=== PATIENT | male | born 1960 | race Two or more races ===

== ENCOUNTER 2017-09-08 10:51 | Inpatient (IN) | payer OTHER ==
[2017-09-08 11:56] VITALS: BMI 29.7
--- NOTE | 2017-09-08 13:00 | HP ---
Admission ROS [facility] Chief Complaint: "I'm here to improve the quality of my life." Patient is here for Rehab for Cocaine. Allergies/Adverse Reactions: Allergies Allergy/AdvReac Type Severity Reaction Status Date / Time Penicillins Allergy Unknown UNKNOWN Verified 09/08/17 12:20 History of Present Illness: Patient is a 56 YO male here for rehab for Cocaine. Patient has had 2 previous rehab admissions at [facility] (2013, 2014). Patient denies any other previous Detox / Rehab admissions. Longest period of non-drug use in recent years: approx. 1 year (@ 2009). Exam Limitations: No Limitations - Ebola screening Have you traveled outside of the country in the last 21 days: No Have you had contact with anyone from an Ebola affected area: No Have you been sick,other than usual withdrawal symptoms: No Do you have a fever: No - Review of Systems Constitutional: Malaise EENT: reports: No Symptoms Reported Respiratory: reports: No Symptoms reported Cardiac: reports: No Symptoms Reported Musculoskeletal: reports: No Symptoms Reported Integumentary: reports: Pruritus (Eczema on face, upper back, arms.) Neuro: reports: No Symptoms reported Endocrine: reports: No Symptoms Reported Hematology: reports: No Symptoms Reported Psychiatric: reports: No Sypmtoms Reported, Judgement Intact, Mood/Affect Appropiate, Orientated x3, Depressed (On meds.) Other Systems: Reviewed and Negative Patient History - Patient Medical History Hx Anemia: No Hx Asthma: Yes (Uses Albuterol inhlaer PRN.) Hx Chronic Obstructive Pulmonary Disease (COPD): No Hx Cancer: No Hx Cardiac Disorders: No Hx Congestive Heart Failure: No Hx Hypertension: Yes (Takes Amlodipine.) Hx Hypercholesterolemia: No Hx Pacemaker: No HX Cerebrovascular Accident: No Hx Seizures: No Hx Dementia: No Hx Diabetes: No Hx Gastrointestinal Disorders: No Hx Liver Disease: No Hx Genitourinary Disorders: No Hx Sexually Transmitted Disorders: No Hx Renal Disease (ESRD): No Hx Thyroid Disease: No Hx Human Immunodeficiency Virus (HIV): No (NEGATIVE HX; Last Tested: 2016.) Hx Hepatitis C: No (NEGATIVE HX.) Hx Depression: Yes (On meds.) Hx Suicide Attempt: No (PATIENTDENIES CURRENT SI / HI.) Hx Bipolar Disorder: No Hx Schizophrenia: No Other Medical History: DENIES. - Patient Surgical History Past Surgical History: No Hx Neurologic Surgery: No Hx Cataract Extraction: No Hx Cardiac Surgery: No Hx Lung Surgery: No Hx Breast Surgery: No Hx Breast Biopsy: No Hx Abdominal Surgery: No Hx Appendectomy: No Hx Cholecystectomy: No Hx Genitourinary Surgery: No Hx Section: No Hx Orthopedic Surgery: No Anesthesia Reaction: No - PPD History Previous Implant?: Yes Documented Results: Negative w/proof Implanted On Prior [facility] Admission?: Yes Date: 07/22/15 Results: 0 mm PPD to be Administered?: Yes - Reproductive History Patient is a Female of Child Bearing Age (11 -55 yrs old): No (PATIENT IS MALE.) Patient : No - Smoking Cessation Smoking history: Former smoker Have you smoked in the past 12 months: Yes Aproximately how many cigarettes per day: 4 If you are a former smoker, when did you quit?: Approx. 1 month ago. Cigars Per Day: 0 Hx Chewing Tobacco Use: No Initiated information on smoking cessation: Yes 'Breaking Loose' booklet given: 09/08/17 (GIVEN ON UNIT.) - Substance & Tx. History Hx Alcohol Use: No Hx Substance Use: Yes Substance Use Type: Cocaine Hx Substance Use Treatment: Yes (2 previous Rehab admissions at [facility] (2013 and 2014).) - Substances Abused Crack Route: Smoking Frequency: Daily Amount used: $80 Age of first use: 34 Date of Last Use: 08/04/17 Family Disease History - Family Disease History Family Disease History: Respiratory: Mother (Asthma ), Daughter (Asthma) Admission Physical Exam [facility] - Vital Signs Vital Signs: Vital Signs - 24 hr 09/08/17 11:55 Temperature 96.1 F L Pulse Rate 76 Respiratory 20 Rate Blood Pressure 131/84 - Physical General Appearance: Yes: No Apparent Distress, Nourished, Appropriately Dressed HEENTM: Yes: Hearing grossly Normal, Normocephalic, Normal Voice, BRENNAN, Pharynx Normal Respiratory: Yes: Chest Non-Tender, Lungs Clear, No Respiratory Distress, No Accessory Muscle Use Neck: Yes: No masses,lesions,Nodules, Supple, Trachea in good position Breast: Yes: Breast Exam Deferred Cardiology: Yes: Regular Rhythm, Regular Rate, S1, S2 Abdominal: Yes: Normal Bowel Sounds, Non Tender, Flat, Soft Genitourinary: Yes: Within Normal Limits Back: Yes: Normal Inspection Musculoskeletal: Yes: full range of Motion, Gait Steady Extremities: Yes: Normal Capillary Refill, Normal Range of Motion, Non-Tender Neurological: Yes: Fully Oriented, Alert, Normal Mood/Affect, Normal Response Integumentary: Yes: Normal Color, Dry, Warm Lymphatic: Yes: Within Normal Limits - Diagnostic (1) Cocaine dependence, uncomplicated Current Visit: Yes Status: Chronic (2) History of depression Current Visit: Yes Status: Chronic (3) Essential hypertension Current Visit: Yes Status: Chronic Cleared for Admission [facility] - Detox or Rehab Claeared for Rehab Admission: Yes [facility] Breath Alcohol Content Breath Alcohol Content: 0 Urine Drug Screen - Results Drug Screen Negative: Yes
[2017-09-08] MEDS ORDERED: MENTHOL/PHENOL 1 EACH UD MM PRN (13:17)
[2017-09-08] MEDS ORDERED: guaiFENesin/D-METHORPHAN HB 10 ML UNIT-DOSE CUPS PO PRN (13:17)
[2017-09-08] MEDS ORDERED: LOPERAMIDE HCL 2 MG CAPSULE PO PRN (13:17)
[2017-09-08] MEDS ORDERED: MAG HYDROX/AL HYDROX/SIMETH 30 ML UNIT-DOSE CUP PO PRN (13:17)
[2017-09-08] MEDS ORDERED: MAGNESIUM CITRATE 300 ML BOTTLE PO PRN (13:17)
[2017-09-08] MEDS ORDERED: P-EPHED 60MG/TRIPROLIDI 2.5MG TABLET PO PRN (13:17)
[2017-09-08] MEDS ORDERED: MAGNESIUM HYDROX 2400MG/30ML ORAL SUSPENSION 30 ML CUP PO PRN (13:17)
[2017-09-08] MEDS ORDERED: IBUPROFEN 400 MG TABLET (FP) PO PRN (13:17)
[2017-09-08] MEDS ORDERED: ACETAMINOPHEN 325 MG TABLET (FP) PO PRN (13:17)
[2017-09-08] MEDS ORDERED: TUBERCULIN PPD 5 TU/0.1ML VIAL ID ONE (14:06)
--- NOTE | 2017-09-08 14:37 | HP ---
Psychiatrist Admission - Data Date of interview: 09/08/17 Admission source: [facility] Identifying data: This is the third [facility] admission for this 56 year old single AA male, currently homeless. Medical History: HTN, Asthma and eczema . Smokes cigaretets 4 a day. Psychiatric History: Patient reports was diagnosed with MDD, first psychiatric treatment in 2005 to address depressed mood following his father's , was hospitalizaed at [facility], several subsequent psychiatric hospitalizations with most recent for 21 days at [facility] from where he was reffered to [facility]. he is on the following medications Trazodoen 100 mg po hs and Celexa 10 mg po daily. Physical/Sexual Abuse/Trauma History: Patient denies history of sexual, physical and verbal abuse. Vital Signs: Vital Signs - 24 hr 09/08/17 11:55 Temperature 96.1 F L Pulse Rate 76 Respiratory 20 Rate Blood Pressure 131/84 Allergies/Adverse Reactions: Allergies Allergy/AdvReac Type Severity Reaction Status Date / Time Penicillins Allergy Unknown UNKNOWN Verified 09/08/17 12:20 Date of last physical exam: 09/08/17 Concur with the findings of this exam: Yes - Substance Abuse/Tx History Hx Alcohol Use: Yes ("sometimes) Hx Substance Use: Yes Substance Use Type: Cocaine ($80 daily ) Hx Substance Use Treatment: Yes ([address] 2 2013 and 2014) Mental Status Exam - Mental Status Exam Alert and Oriented to: Time, Place, Person Cognitive Function: Grossly Intact Patient Appearance: Well Groomed Mood: Sad, Anxious Affect: Appropriate, Mood Congruent Patient Behavior: Appropriate, Cooperative Speech Pattern: Clear, Appropriate Voice Loudness: Normal Thought Process: Intact, Goal Oriented Thought Disorder: Not Present Hallucinations: Denies Suicidal Ideation: Denies Homicidal Ideation: Denies Insight/Judgement: Fair Sleep: Fair Appetite: Fair Muscle strength/Tone: Normal Gait/Station: Normal Psychiatric Findings - Problem List ([place] 1, 2,3) (1) Alcohol abuse Current Visit: Yes Status: Acute (2) Nicotine dependence Current Visit: Yes Status: Acute (3) Cocaine dependence Current Visit: No Status: Acute Qualifiers: Substance use status: uncomplicated Qualified Code(s): F14.20 - Cocaine dependence, uncomplicated (4) Major depressive disorder, recurrent episode, moderate Current Visit: No Status: Chronic - Initial Treatment Plan Initial Treatment Plan: will continue current medications, monitor progress as needed.
--- NOTE | 2017-09-08 14:53 | PN ---
[facility] Progress Note (SOAP) Subjective: c/o dry skin and pruritus would like aveeno and dry skin cream Objective: 09/08/17 14:52 Vital Signs - 8 hr 09/08/17 11:55 Temperature 96.1 F L Pulse Rate 76 Respiratory 20 Rate Blood Pressure 131/84 labs reviewed in chart, no rash nad a and ox3 Assessment: 09/08/17 14:53 dry skin dermatitis - ordered aveeno, lachydrin
[2017-09-08] MEDS: AMMONIUM LACTATE 12% LOTION 225 GM BOTTLE TP SCH ×2 (15:07→21:07)
[2017-09-08 15:22] LABS: ALBUMIN 4.2 g/dl (3.4-5.0); ALK PHOS 94 U/L (45-117); ANION GAP 7 (8-16); BILIRUBIN,TOTAL 0.6 mg/dL (0.2-1.0); CALCIUM 9.4 mg/dL (8.5-10.1); CO2 30 mmol/L (21-32); CREATININE 1.1 mg/dL (0.7-1.3); GLUCOSE,RANDOM 92 mg/dL (74-106); SGOT/AST 22 U/L (15-37); SGPT/ALT 18 U/L (12-78); TOT PROT 7.9 g/dl (6.4-8.2)
[2017-09-08] MEDS: COLLOIDAL OATMEAL 1 BAR EACH TP PRN (15:30)
[2017-09-08 15:39] LABS: MCH 30.9 pg (25.7-33.7); MCHC 34.2 g/dl (32.0-35.9); MEAN CELL VOLUME 90.4 fl (80-96); MEAN PLT VOLUME 8.3 fl (7.5-11.1); PLATELET COUNT 258 K/MM3 (134-434); RDW 13.4 % (11.9-15.9); WHITE BLOOD COUNT 8.1 K/mm3 (4.0-10.0)
[2017-09-08] MEDS: traZODone HCL 100 MG TABLET (FP) PO SCH (21:06)
[2017-09-08] MEDS: THIAMINE HCL 100 MG TABLET (FP) PO SCH (21:06)
[2017-09-08 21:15] LABS: URINE APPEARANCE CLEAR; URINE BILIRUBIN NEGATIVE (NEGATIVE); URINE BLOOD NEGATIVE (NEGATIVE); URINE COLOR LT. YELLOW; URINE GLUCOSE (UA) NEGATIVE (NEGATIVE); URINE KETONE NEGATIVE (NEGATIVE); URINE NITRITE NEGATIVE (NEGATIVE); URINE PROTEIN NEGATIVE (NEGATIVE); URINE UROBILINOGEN 0.2 mg/dL (0.2-1.0)
[2017-09-09 09:49] LABS: URINE LEUK ESTERASE Negative (NEGATIVE)
[2017-09-09] MEDS: amLODIPine BESYLATE 10 MG TABLET (FP) PO SCH (09:49)
[2017-09-09] MEDS: PRENATAL VITAMINS W/ FOLIC ACID TABLET (FP) PO SCH (09:49)
[2017-09-09] MEDS: CITALOPRAM HYDROBROMIDE 20 MG TABLET (FP) PO SCH (09:49)
[2017-09-09] MEDS: AMMONIUM LACTATE 12% LOTION 225 GM BOTTLE TP SCH ×2 (09:50→21:17)
--- NOTE | 2017-09-09 12:49 | EKG ---
Test Reason : Blood Pressure : / mmHG Vent. Rate : 071 BPM Atrial Rate : 071 BPM P-R Int : 170 ms QRS Dur : 084 ms QT Int : 420 ms P-R-T Axes : 067 077 015 degrees QTc Int : 456 ms NORMAL SINUS RHYTHM NORMAL ECG NO PREVIOUS ECGS AVAILABLE Confirmed by SHARMAINE LOPEZ, ABIGAIL ([id number]) on 09/09/2017 12:49:21 PM Referred By: Confirmed By:ABIGAIL SCHMID MD
[2017-09-09] MEDS: HYDROCORTISONE 1% TOPICAL OINT 30 GM TUBE TP SCH ×2 (14:45→21:17)
[2017-09-09] MEDS: THIAMINE HCL 100 MG TABLET (FP) PO SCH (21:15)
[2017-09-09] MEDS: traZODone HCL 100 MG TABLET (FP) PO SCH (21:15)
[2017-09-10] MEDS: amLODIPine BESYLATE 10 MG TABLET (FP) PO SCH (09:28)
[2017-09-10] MEDS: CITALOPRAM HYDROBROMIDE 20 MG TABLET (FP) PO SCH (09:28)
[2017-09-10] MEDS: PRENATAL VITAMINS W/ FOLIC ACID TABLET (FP) PO SCH (09:28)
[2017-09-10] MEDS: AMMONIUM LACTATE 12% LOTION 225 GM BOTTLE TP SCH ×2 (09:28→21:20)
[2017-09-10] MEDS: HYDROCORTISONE 1% TOPICAL OINT 30 GM TUBE TP SCH ×2 (09:29→21:20)
[2017-09-10] MEDS: THIAMINE HCL 100 MG TABLET (FP) PO SCH (21:20)
[2017-09-10] MEDS: traZODone HCL 100 MG TABLET (FP) PO SCH (21:20)
[2017-09-11] MEDS: PRENATAL VITAMINS W/ FOLIC ACID TABLET (FP) PO SCH (09:34)
[2017-09-11] MEDS: CITALOPRAM HYDROBROMIDE 20 MG TABLET (FP) PO SCH (09:34)
[2017-09-11] MEDS: amLODIPine BESYLATE 10 MG TABLET (FP) PO SCH (09:34)
[2017-09-11] MEDS: AMMONIUM LACTATE 12% LOTION 225 GM BOTTLE TP SCH ×2 (09:35→22:05)
[2017-09-11] MEDS: HYDROCORTISONE 1% TOPICAL OINT 30 GM TUBE TP SCH ×2 (09:35→22:05)
[2017-09-11] MEDS: THIAMINE HCL 100 MG TABLET (FP) PO SCH (22:04)
[2017-09-11] MEDS: traZODone HCL 100 MG TABLET (FP) PO SCH (22:04)
[2017-09-12] MEDS: amLODIPine BESYLATE 10 MG TABLET (FP) PO SCH (09:23)
[2017-09-12] MEDS: AMMONIUM LACTATE 12% LOTION 225 GM BOTTLE TP SCH ×2 (09:23→23:37)
[2017-09-12] MEDS: CITALOPRAM HYDROBROMIDE 20 MG TABLET (FP) PO SCH (09:23)
[2017-09-12] MEDS: PRENATAL VITAMINS W/ FOLIC ACID TABLET (FP) PO SCH (09:23)
[2017-09-12] MEDS: HYDROCORTISONE 1% TOPICAL OINT 30 GM TUBE TP SCH ×2 (09:23→21:53)
[2017-09-12] MEDS: ALBUTEROL SO4 18 GM HFA INHALER IH PRN (15:08)
[2017-09-12] MEDS: THIAMINE HCL 100 MG TABLET (FP) PO SCH (21:53)
[2017-09-12] MEDS: traZODone HCL 100 MG TABLET (FP) PO SCH (21:53)
[2017-09-13] MEDS: CITALOPRAM HYDROBROMIDE 20 MG TABLET (FP) PO SCH (09:37)
[2017-09-13] MEDS: PRENATAL VITAMINS W/ FOLIC ACID TABLET (FP) PO SCH (09:37)
[2017-09-13] MEDS: AMMONIUM LACTATE 12% LOTION 225 GM BOTTLE TP SCH ×2 (09:38→21:54)
[2017-09-13] MEDS: HYDROCORTISONE 1% TOPICAL OINT 30 GM TUBE TP SCH ×2 (09:38→21:53)
[2017-09-13] MEDS: amLODIPine BESYLATE 10 MG TABLET (FP) PO SCH (09:38)
[2017-09-13] MEDS: THIAMINE HCL 100 MG TABLET (FP) PO SCH (21:53)
[2017-09-13] MEDS: traZODone HCL 100 MG TABLET (FP) PO SCH (21:53)
[2017-09-14] MEDS: HYDROCORTISONE 1% TOPICAL OINT 30 GM TUBE TP SCH ×2 (09:31→21:39)
[2017-09-14] MEDS: PRENATAL VITAMINS W/ FOLIC ACID TABLET (FP) PO SCH (09:32)
[2017-09-14] MEDS: CITALOPRAM HYDROBROMIDE 20 MG TABLET (FP) PO SCH (09:32)
[2017-09-14] MEDS: amLODIPine BESYLATE 10 MG TABLET (FP) PO SCH (09:32)
[2017-09-14] MEDS: AMMONIUM LACTATE 12% LOTION 225 GM BOTTLE TP SCH ×2 (09:33→21:39)
[2017-09-14] MEDS: COLLOIDAL OATMEAL 1 BAR EACH TP PRN (14:24)
[2017-09-14] MEDS: THIAMINE HCL 100 MG TABLET (FP) PO SCH (21:38)
[2017-09-14] MEDS: traZODone HCL 100 MG TABLET (FP) PO SCH (21:38)
[2017-09-15] MEDS: PRENATAL VITAMINS W/ FOLIC ACID TABLET (FP) PO SCH (09:41)
[2017-09-15] MEDS: AMMONIUM LACTATE 12% LOTION 225 GM BOTTLE TP SCH ×2 (09:41→21:19)
[2017-09-15] MEDS: amLODIPine BESYLATE 10 MG TABLET (FP) PO SCH (09:41)
[2017-09-15] MEDS: HYDROCORTISONE 1% TOPICAL OINT 30 GM TUBE TP SCH ×2 (09:41→21:19)
[2017-09-15] MEDS: CITALOPRAM HYDROBROMIDE 20 MG TABLET (FP) PO SCH (09:41)
[2017-09-15] MEDS: THIAMINE HCL 100 MG TABLET (FP) PO SCH (21:19)
[2017-09-15] MEDS: traZODone HCL 100 MG TABLET (FP) PO SCH (21:19)
[2017-09-16] MEDS: CITALOPRAM HYDROBROMIDE 20 MG TABLET (FP) PO SCH (09:47)
[2017-09-16] MEDS: HYDROCORTISONE 1% TOPICAL OINT 30 GM TUBE TP SCH ×2 (09:47→23:58)
[2017-09-16] MEDS: AMMONIUM LACTATE 12% LOTION 225 GM BOTTLE TP SCH ×2 (09:47→23:58)
[2017-09-16] MEDS: amLODIPine BESYLATE 10 MG TABLET (FP) PO SCH (09:47)
[2017-09-16] MEDS: PRENATAL VITAMINS W/ FOLIC ACID TABLET (FP) PO SCH (09:47)
[2017-09-16] MEDS: traZODone HCL 100 MG TABLET (FP) PO SCH (21:12)
[2017-09-16] MEDS: THIAMINE HCL 100 MG TABLET (FP) PO SCH (21:12)
[2017-09-17] MEDS: PRENATAL VITAMINS W/ FOLIC ACID TABLET (FP) PO SCH (09:42)
[2017-09-17] MEDS: ALBUTEROL SO4 18 GM HFA INHALER IH PRN (09:43)
[2017-09-17] MEDS: amLODIPine BESYLATE 10 MG TABLET (FP) PO SCH (09:43)
[2017-09-17] MEDS: CITALOPRAM HYDROBROMIDE 20 MG TABLET (FP) PO SCH (09:43)
[2017-09-17] MEDS: HYDROCORTISONE 1% TOPICAL OINT 30 GM TUBE TP SCH ×2 (09:43→21:30)
[2017-09-17] MEDS: AMMONIUM LACTATE 12% LOTION 225 GM BOTTLE TP SCH ×2 (09:43→21:31)
[2017-09-17] MEDS: THIAMINE HCL 100 MG TABLET (FP) PO SCH (21:30)
[2017-09-17] MEDS: traZODone HCL 100 MG TABLET (FP) PO SCH (21:30)
[2017-09-18] MEDS: CITALOPRAM HYDROBROMIDE 20 MG TABLET (FP) PO SCH (09:46)
[2017-09-18] MEDS: HYDROCORTISONE 1% TOPICAL OINT 30 GM TUBE TP SCH ×2 (09:46→21:14)
[2017-09-18] MEDS: AMMONIUM LACTATE 12% LOTION 225 GM BOTTLE TP SCH ×2 (09:46→21:14)
[2017-09-18] MEDS: PRENATAL VITAMINS W/ FOLIC ACID TABLET (FP) PO SCH (09:46)
[2017-09-18] MEDS: amLODIPine BESYLATE 10 MG TABLET (FP) PO SCH (09:46)
[2017-09-18] MEDS: THIAMINE HCL 100 MG TABLET (FP) PO SCH (21:14)
[2017-09-18] MEDS: traZODone HCL 100 MG TABLET (FP) PO SCH (21:14)
[2017-09-19] MEDS: amLODIPine BESYLATE 10 MG TABLET (FP) PO SCH (09:30)
[2017-09-19] MEDS: AMMONIUM LACTATE 12% LOTION 225 GM BOTTLE TP SCH ×2 (09:30→21:15)
[2017-09-19] MEDS: PRENATAL VITAMINS W/ FOLIC ACID TABLET (FP) PO SCH (09:30)
[2017-09-19] MEDS: CITALOPRAM HYDROBROMIDE 20 MG TABLET (FP) PO SCH (09:30)
[2017-09-19] MEDS: HYDROCORTISONE 1% TOPICAL OINT 30 GM TUBE TP SCH ×2 (09:30→21:16)
[2017-09-19] MEDS: ALBUTEROL SO4 18 GM HFA INHALER IH PRN (17:39)
[2017-09-19] MEDS: traZODone HCL 100 MG TABLET (FP) PO SCH (21:15)
[2017-09-19] MEDS: THIAMINE HCL 100 MG TABLET (FP) PO SCH (21:15)
[2017-09-20] MEDS: CITALOPRAM HYDROBROMIDE 20 MG TABLET (FP) PO SCH (09:39)
[2017-09-20] MEDS: PRENATAL VITAMINS W/ FOLIC ACID TABLET (FP) PO SCH (09:39)
[2017-09-20] MEDS: amLODIPine BESYLATE 10 MG TABLET (FP) PO SCH (09:39)
[2017-09-20] MEDS: HYDROCORTISONE 1% TOPICAL OINT 30 GM TUBE TP SCH ×2 (09:40→21:05)
[2017-09-20] MEDS: AMMONIUM LACTATE 12% LOTION 225 GM BOTTLE TP SCH ×2 (09:40→21:05)
[2017-09-20] MEDS: THIAMINE HCL 100 MG TABLET (FP) PO SCH (21:05)
[2017-09-20] MEDS: traZODone HCL 100 MG TABLET (FP) PO SCH (21:05)
[2017-09-21] MEDS: ALBUTEROL SO4 18 GM HFA INHALER IH PRN (08:45)
[2017-09-21] MEDS: PRENATAL VITAMINS W/ FOLIC ACID TABLET (FP) PO SCH (09:41)
[2017-09-21] MEDS: HYDROCORTISONE 1% TOPICAL OINT 30 GM TUBE TP SCH ×2 (09:41→21:09)
[2017-09-21] MEDS: CITALOPRAM HYDROBROMIDE 20 MG TABLET (FP) PO SCH (09:41)
[2017-09-21] MEDS: amLODIPine BESYLATE 10 MG TABLET (FP) PO SCH (09:41)
[2017-09-21] MEDS: AMMONIUM LACTATE 12% LOTION 225 GM BOTTLE TP SCH ×2 (09:41→21:09)
[2017-09-21] MEDS: THIAMINE HCL 100 MG TABLET (FP) PO SCH (21:08)
[2017-09-21] MEDS: traZODone HCL 100 MG TABLET (FP) PO SCH (21:08)
[2017-09-22] MEDS: PRENATAL VITAMINS W/ FOLIC ACID TABLET (FP) PO SCH (09:32)
[2017-09-22] MEDS: CITALOPRAM HYDROBROMIDE 20 MG TABLET (FP) PO SCH (09:32)
[2017-09-22] MEDS: amLODIPine BESYLATE 10 MG TABLET (FP) PO SCH (09:32)
[2017-09-22] MEDS: AMMONIUM LACTATE 12% LOTION 225 GM BOTTLE TP SCH ×2 (09:34→21:45)
[2017-09-22] MEDS: HYDROCORTISONE 1% TOPICAL OINT 30 GM TUBE TP SCH ×2 (09:34→21:45)
[2017-09-22] MEDS: traZODone HCL 100 MG TABLET (FP) PO SCH (21:45)
[2017-09-22] MEDS: THIAMINE HCL 100 MG TABLET (FP) PO SCH (21:45)
[2017-09-22] MEDS: ALBUTEROL SO4 18 GM HFA INHALER IH PRN (21:46)
[2017-09-23] MEDS: CITALOPRAM HYDROBROMIDE 20 MG TABLET (FP) PO SCH (09:48)
[2017-09-23] MEDS: PRENATAL VITAMINS W/ FOLIC ACID TABLET (FP) PO SCH (09:48)
[2017-09-23] MEDS: AMMONIUM LACTATE 12% LOTION 225 GM BOTTLE TP SCH ×2 (09:49→21:33)
[2017-09-23] MEDS: amLODIPine BESYLATE 10 MG TABLET (FP) PO SCH (09:49)
[2017-09-23] MEDS: HYDROCORTISONE 1% TOPICAL OINT 30 GM TUBE TP SCH ×2 (09:49→21:33)
[2017-09-23] MEDS: THIAMINE HCL 100 MG TABLET (FP) PO SCH (21:32)
[2017-09-23] MEDS: traZODone HCL 100 MG TABLET (FP) PO SCH (21:32)
[2017-09-24] MEDS: CITALOPRAM HYDROBROMIDE 20 MG TABLET (FP) PO SCH (10:13)
[2017-09-24] MEDS: PRENATAL VITAMINS W/ FOLIC ACID TABLET (FP) PO SCH (10:13)
[2017-09-24] MEDS: amLODIPine BESYLATE 10 MG TABLET (FP) PO SCH (10:13)
[2017-09-24] MEDS: AMMONIUM LACTATE 12% LOTION 225 GM BOTTLE TP SCH ×2 (10:14→21:08)
[2017-09-24] MEDS: HYDROCORTISONE 1% TOPICAL OINT 30 GM TUBE TP SCH ×2 (10:15→21:08)
[2017-09-24] MEDS ORDERED: PT OWN MED DRAWER 7, Y5N ONE (10:15)
[2017-09-24] MEDS: THIAMINE HCL 100 MG TABLET (FP) PO SCH (21:08)
[2017-09-24] MEDS: traZODone HCL 100 MG TABLET (FP) PO SCH (21:08)
[2017-09-25] MEDS: CITALOPRAM HYDROBROMIDE 20 MG TABLET (FP) PO SCH (09:26)
[2017-09-25] MEDS: PRENATAL VITAMINS W/ FOLIC ACID TABLET (FP) PO SCH (09:26)
[2017-09-25] MEDS: amLODIPine BESYLATE 10 MG TABLET (FP) PO SCH (09:26)
[2017-09-25] MEDS: AMMONIUM LACTATE 12% LOTION 225 GM BOTTLE TP SCH ×2 (09:27→21:10)
[2017-09-25] MEDS: HYDROCORTISONE 1% TOPICAL OINT 30 GM TUBE TP SCH ×2 (09:27→21:10)
[2017-09-25] MEDS: ALBUTEROL SO4 18 GM HFA INHALER IH PRN (17:37)
[2017-09-25] MEDS ORDERED: PT OWN MED DRAWER 7, Y5N ONE (17:37)
[2017-09-25] MEDS: traZODone HCL 100 MG TABLET (FP) PO SCH (21:09)
[2017-09-25] MEDS: THIAMINE HCL 100 MG TABLET (FP) PO SCH (21:09)
[2017-09-26] MEDS ORDERED: PT OWN MED DRAWER 7, Y5N ONE ×4 (08:06→22:14)
[2017-09-26] MEDS: HYDROCORTISONE 1% TOPICAL OINT 30 GM TUBE TP SCH ×2 (09:35→21:04)
[2017-09-26] MEDS: CITALOPRAM HYDROBROMIDE 20 MG TABLET (FP) PO SCH (09:35)
[2017-09-26] MEDS: amLODIPine BESYLATE 10 MG TABLET (FP) PO SCH (09:35)
[2017-09-26] MEDS: PRENATAL VITAMINS W/ FOLIC ACID TABLET (FP) PO SCH (09:35)
[2017-09-26] MEDS: AMMONIUM LACTATE 12% LOTION 225 GM BOTTLE TP SCH ×2 (09:36→21:04)
[2017-09-26] MEDS: ALBUTEROL SO4 18 GM HFA INHALER IH PRN (14:15)
[2017-09-26] MEDS: THIAMINE HCL 100 MG TABLET (FP) PO SCH (21:03)
[2017-09-26] MEDS: traZODone HCL 100 MG TABLET (FP) PO SCH (21:03)
[2017-09-27] MEDS: AMMONIUM LACTATE 12% LOTION 225 GM BOTTLE TP SCH ×2 (09:38→21:15)
[2017-09-27] MEDS: HYDROCORTISONE 1% TOPICAL OINT 30 GM TUBE TP SCH ×2 (09:38→21:15)
[2017-09-27] MEDS: amLODIPine BESYLATE 10 MG TABLET (FP) PO SCH (09:38)
[2017-09-27] MEDS: PRENATAL VITAMINS W/ FOLIC ACID TABLET (FP) PO SCH (09:38)
[2017-09-27] MEDS: CITALOPRAM HYDROBROMIDE 20 MG TABLET (FP) PO SCH (09:38)
[2017-09-27] MEDS: ALBUTEROL SO4 18 GM HFA INHALER IH PRN (17:51)
[2017-09-27] MEDS: traZODone HCL 100 MG TABLET (FP) PO SCH (21:14)
[2017-09-27] MEDS: THIAMINE HCL 100 MG TABLET (FP) PO SCH (21:14)
[2017-09-28] MEDS: CITALOPRAM HYDROBROMIDE 20 MG TABLET (FP) PO SCH (09:42)
[2017-09-28] MEDS: amLODIPine BESYLATE 10 MG TABLET (FP) PO SCH (09:43)
[2017-09-28] MEDS: PRENATAL VITAMINS W/ FOLIC ACID TABLET (FP) PO SCH (09:43)
[2017-09-28] MEDS: AMMONIUM LACTATE 12% LOTION 225 GM BOTTLE TP SCH ×2 (09:43→22:07)
[2017-09-28] MEDS: HYDROCORTISONE 1% TOPICAL OINT 30 GM TUBE TP SCH ×2 (09:43→22:07)
[2017-09-28] MEDS ORDERED: PT OWN MED DRAWER 7, Y5N ONE (09:45)
[2017-09-28] MEDS: COLLOIDAL OATMEAL 1 BAR EACH TP PRN (09:45)
[2017-09-28] MEDS: THIAMINE HCL 100 MG TABLET (FP) PO SCH (21:13)
[2017-09-28] MEDS: traZODone HCL 100 MG TABLET (FP) PO SCH (21:13)
[2017-09-28] MEDS: ALBUTEROL SO4 18 GM HFA INHALER IH PRN (21:13)
[2017-09-29] MEDS: AMMONIUM LACTATE 12% LOTION 225 GM BOTTLE TP SCH ×2 (09:33→21:05)
[2017-09-29] MEDS: CITALOPRAM HYDROBROMIDE 20 MG TABLET (FP) PO SCH (09:33)
[2017-09-29] MEDS: HYDROCORTISONE 1% TOPICAL OINT 30 GM TUBE TP SCH ×2 (09:33→21:05)
[2017-09-29] MEDS: PRENATAL VITAMINS W/ FOLIC ACID TABLET (FP) PO SCH (09:33)
[2017-09-29] MEDS: amLODIPine BESYLATE 10 MG TABLET (FP) PO SCH (09:34)
[2017-09-29] MEDS: traZODone HCL 100 MG TABLET (FP) PO SCH (21:04)
[2017-09-29] MEDS: THIAMINE HCL 100 MG TABLET (FP) PO SCH (21:04)
[2017-09-30] MEDS: PRENATAL VITAMINS W/ FOLIC ACID TABLET (FP) PO SCH (09:39)
[2017-09-30] MEDS: CITALOPRAM HYDROBROMIDE 20 MG TABLET (FP) PO SCH (09:39)
[2017-09-30] MEDS: amLODIPine BESYLATE 10 MG TABLET (FP) PO SCH (09:39)
[2017-09-30] MEDS: AMMONIUM LACTATE 12% LOTION 225 GM BOTTLE TP SCH ×2 (09:40→22:20)
[2017-09-30] MEDS: HYDROCORTISONE 1% TOPICAL OINT 30 GM TUBE TP SCH ×2 (09:40→21:43)
[2017-09-30] MEDS: THIAMINE HCL 100 MG TABLET (FP) PO SCH (21:42)
[2017-09-30] MEDS: ALBUTEROL SO4 18 GM HFA INHALER IH PRN (21:42)
[2017-09-30] MEDS: traZODone HCL 100 MG TABLET (FP) PO SCH (21:43)
[2017-10-01] MEDS: amLODIPine BESYLATE 10 MG TABLET (FP) PO SCH (09:25)
[2017-10-01] MEDS: CITALOPRAM HYDROBROMIDE 20 MG TABLET (FP) PO SCH (09:25)
[2017-10-01] MEDS: PRENATAL VITAMINS W/ FOLIC ACID TABLET (FP) PO SCH (09:25)
[2017-10-01] MEDS: AMMONIUM LACTATE 12% LOTION 225 GM BOTTLE TP SCH ×2 (09:26→21:31)
[2017-10-01] MEDS: HYDROCORTISONE 1% TOPICAL OINT 30 GM TUBE TP SCH ×2 (09:26→21:31)
[2017-10-01] MEDS: traZODone HCL 100 MG TABLET (FP) PO SCH (21:30)
[2017-10-01] MEDS: THIAMINE HCL 100 MG TABLET (FP) PO SCH (21:30)
[2017-10-02] MEDS: PRENATAL VITAMINS W/ FOLIC ACID TABLET (FP) PO SCH (09:42)
[2017-10-02] MEDS: CITALOPRAM HYDROBROMIDE 20 MG TABLET (FP) PO SCH (09:42)
[2017-10-02] MEDS: amLODIPine BESYLATE 10 MG TABLET (FP) PO SCH (09:42)
[2017-10-02] MEDS: HYDROCORTISONE 1% TOPICAL OINT 30 GM TUBE TP SCH ×2 (09:43→21:41)
[2017-10-02] MEDS: AMMONIUM LACTATE 12% LOTION 225 GM BOTTLE TP SCH ×2 (09:43→21:41)
[2017-10-02] MEDS ORDERED: PT OWN MED DRAWER 7, Y5N ONE (09:45)
[2017-10-02] MEDS: traZODone HCL 100 MG TABLET (FP) PO SCH (21:41)
[2017-10-02] MEDS: THIAMINE HCL 100 MG TABLET (FP) PO SCH (21:41)
[2017-10-02] MEDS: ALBUTEROL SO4 18 GM HFA INHALER IH PRN (21:42)
[2017-10-03] MEDS: PRENATAL VITAMINS W/ FOLIC ACID TABLET (FP) PO SCH (09:27)
[2017-10-03] MEDS: CITALOPRAM HYDROBROMIDE 20 MG TABLET (FP) PO SCH (09:28)
[2017-10-03] MEDS: amLODIPine BESYLATE 10 MG TABLET (FP) PO SCH (09:28)
[2017-10-03] MEDS: AMMONIUM LACTATE 12% LOTION 225 GM BOTTLE TP SCH ×2 (09:28→21:15)
[2017-10-03] MEDS: HYDROCORTISONE 1% TOPICAL OINT 30 GM TUBE TP SCH ×2 (09:28→21:15)
[2017-10-03] MEDS: traZODone HCL 100 MG TABLET (FP) PO SCH (21:15)
[2017-10-03] MEDS: THIAMINE HCL 100 MG TABLET (FP) PO SCH (21:15)
[2017-10-03] MEDS: ALBUTEROL SO4 18 GM HFA INHALER IH PRN (21:16)
[2017-10-04] MEDS: CITALOPRAM HYDROBROMIDE 20 MG TABLET (FP) PO SCH (09:45)
[2017-10-04] MEDS: PRENATAL VITAMINS W/ FOLIC ACID TABLET (FP) PO SCH (09:45)
[2017-10-04] MEDS: amLODIPine BESYLATE 10 MG TABLET (FP) PO SCH (09:45)
[2017-10-04] MEDS: HYDROCORTISONE 1% TOPICAL OINT 30 GM TUBE TP SCH ×2 (09:46→22:00)
[2017-10-04] MEDS: AMMONIUM LACTATE 12% LOTION 225 GM BOTTLE TP SCH ×2 (09:46→22:00)
[2017-10-04] MEDS: THIAMINE HCL 100 MG TABLET (FP) PO SCH (21:38)
[2017-10-04] MEDS: ALBUTEROL SO4 18 GM HFA INHALER IH PRN (21:38)
[2017-10-04] MEDS: traZODone HCL 100 MG TABLET (FP) PO SCH (21:38)
[2017-10-05] MEDS: amLODIPine BESYLATE 10 MG TABLET (FP) PO SCH (09:52)
[2017-10-05] MEDS: HYDROCORTISONE 1% TOPICAL OINT 30 GM TUBE TP SCH ×2 (09:52→21:22)
[2017-10-05] MEDS: AMMONIUM LACTATE 12% LOTION 225 GM BOTTLE TP SCH ×2 (09:52→22:26)
[2017-10-05] MEDS: CITALOPRAM HYDROBROMIDE 20 MG TABLET (FP) PO SCH (09:52)
[2017-10-05] MEDS: PRENATAL VITAMINS W/ FOLIC ACID TABLET (FP) PO SCH (09:52)
[2017-10-05] MEDS: ALBUTEROL SO4 18 GM HFA INHALER IH PRN (09:53)
--- NOTE | 2017-10-05 09:55 | PN ---
Psychiatric Progress Note Vital Signs: Vital Signs Period Temp Pulse Resp BP Sys/Chavez Pulse Ox Last 24 Hr 97.5 F 69-79 18-18 117-128/65-97 Date of Session: 10/05/17 Chief Complaint:: Discharge Note HPI: Patient addressing Cocaine Dependence and Alcohol Abuse comorbid with MDD, recurrent episode moderate ROS: Asthma, HTN, Eczema Current Medications: Active Medications Generic Name Dose Route Start Last Admin Trade Name Freq PRN Reason Stop Dose Admin Acetaminophen 650 mg 09/08/17 13:17 Tylenol - PO Q4H PRN PAIN Al Hydroxide/Mg Hydroxide 30 ml 09/08/17 13:17 Mylanta Oral Suspension - PO Q6H PRN DYSPEPSIA Albuterol Sulfate 2 puff 09/08/17 13:19 10/04/17 21:38 Ventolin Hfa Inhaler - IH 2 puff Q4H PRN Administration ASTHMA Amlodipine Besylate 10 mg 09/09/17 10:00 10/04/17 09:45 Norvasc - PO 10 mg DAILY ANAHI Administration Citalopram Hydrobromide 20 mg 09/09/17 10:00 10/04/17 09:45 Celexa - PO 20 mg DAILY ANAHI Administration Colloidal Oatmeal 1 applic 09/08/17 14:51 09/28/17 09:45 Aveeno Soap - TP 1 applic DAILY PRN Administration HYGEINE Eucalyptus/Menthol/Phenol/Sorbitol 1 each 09/08/17 13:17 Cepastat Lozenge - MM Q4H PRN SORE THROAT Guaifenesin 10 ml 09/08/17 13:17 Robitussin Dm - PO Q6H PRN COUGH Hydrocortisone 1 applic 09/09/17 12:30 10/04/17 22:00 Hytone 1% Ointment - TP 1 applic BID ANAHI Administration Ibuprofen 400 mg 09/08/17 13:17 Motrin - PO Q6H PRN SEVERE PAIN Lactic Acid 1 applic 09/08/17 13:45 10/04/17 22:00 Lac-Hydrin 12 TP 1 applic BID ANAHI Administration Loperamide HCl 4 mg 09/08/17 13:17 Imodium - PO Q6H PRN DIARRHEA Magnesium Citrate 300 ml 09/08/17 13:17 Citroma - PO Q48H PRN CONSTIPATION Magnesium Hydroxide 30 ml 09/08/17 13:17 Milk Of Magnesia - PO DAILY PRN CONSTIPATION Multivit/Folic Acid/Iron 1 tab 09/09/17 10:00 10/04/17 09:45 Vitamins (Sjr) - PO 1 tab DAILY ANAHI Administration Pseudoephedrine/Triprolidine 1 combo 09/08/17 13:17 Actifed - PO TID PRN NASAL CONGESTION Thiamine HCl 100 mg 09/08/17 22:00 10/04/17 21:38 Vitamin B1 - PO 100 mg HS ANAHI Administration Trazodone HCl 100 mg 09/08/17 22:00 10/04/17 21:38 Desyrel - PO 100 mg HS ANAHI Administration Current Side Effect: No Lab tests ordered: Yes Lab tests reviewed: Yes Provider note:: Patient will complete this program on 10/06/17. He has met his treatment goals and will continue to address his issues in outpatient treatment at [facility]. He verbalized understanding of the negative consequences of his addiction and realizing that he needs to change his lifestyle in order to maintain abstinence. He responded well to Celexa 20 mg po daily and Trazadone 100 mg po HS. Scripts for 30 days supply of these medications will be electronically transmitted to [facility] at [address] [place] [address]. He is stable for discharge on 10/06/17 Total face to face time:: 35 Mental Status Exam - Mental Status Exam Alert and Oriented to: Time, Place, Person Cognitive Function: Fair Patient Appearance: Well Groomed Mood: Hopeful, Euthymic Affect: Appropriate Patient Behavior: Cooperative Speech Pattern: Clear Voice Loudness: Normal Thought Process: Intact, Goal Oriented Thought Disorder: Not Present Hallucinations: Denies Suicidal Ideation: Denies Homicidal Ideation: Denies Insight/Judgement: Fair Sleep: Fair Appetite: Good Muscle strength/Tone: Normal Gait/Station: Normal Psychiatric Treatment Plan - Problem List (1) Cocaine dependence Current Visit: No Qualifiers: Substance use status: uncomplicated Qualified Code(s): F14.20 - Cocaine dependence, uncomplicated (2) Alcohol abuse Current Visit: Yes (3) Nicotine dependence Current Visit: Yes (4) Major depressive disorder, recurrent episode, moderate Current Visit: No (5) Dry skin dermatitis Current Visit: Yes (6) Cocaine dependence, uncomplicated Current Visit: Yes (7) Asthma Current Visit: No Initial treatment plan: Patient will be discharged tomorrow and referred to [facility] for outpatient treatment
[2017-10-05] MEDS: THIAMINE HCL 100 MG TABLET (FP) PO SCH (21:21)
[2017-10-05] MEDS: traZODone HCL 100 MG TABLET (FP) PO SCH (21:21)
[2017-10-06 07:03] VITALS: TEMP 97.8
[2017-10-06] MEDS: PRENATAL VITAMINS W/ FOLIC ACID TABLET (FP) PO SCH (09:05)
[2017-10-06] MEDS: CITALOPRAM HYDROBROMIDE 20 MG TABLET (FP) PO SCH (09:06)
[2017-10-06] MEDS: amLODIPine BESYLATE 10 MG TABLET (FP) PO SCH (09:06)
[2017-10-06] MEDS: HYDROCORTISONE 1% TOPICAL OINT 30 GM TUBE TP SCH (09:08)
[2017-10-06] MEDS: AMMONIUM LACTATE 12% LOTION 225 GM BOTTLE TP SCH (09:08)
[2017-10-06 10:15] VITALS: BP 157/83; PULSE 88
== END 2017-10-06 11:50 | disposition home or self-care (01) | DRG 895 ==
LOC: YASAS 10:51 → Y3W 13:06
PROVIDERS: ADMIT Psychiatry & Neurology Psychiatry; ATTEND Psychiatry & Neurology Psychiatry
PROC: HZ42ZZZ Group Counseling for Substance Abuse Treatment, Cognitive-Behavioral (ICD-10-PCS; principal; 2017-09-08)
DX: F14.20 Cocaine dependence, uncomplicated (principal); F33.1 Major depressive disorder, recurrent, moderate; F17.210 Nicotine dependence, cigarettes, uncomplicated; F10.10 Alcohol abuse, uncomplicated; I10 Essential (primary) hypertension; L85.3 Xerosis cutis; J45.909 Unspecified asthma, uncomplicated; Z59.0 Homelessness
CPT/HCPCS: 36415; 80053; 81003; 85027; 86593; 93005; 93010

== ENCOUNTER 2018-04-20 15:34 | Inpatient (IN) | payer OTHER ==
[2018-04-20 16:46] VITALS: BMI 30.3
--- NOTE | 2018-04-20 17:47 | HP ---
Admission [facility] Chief Complaint: crack / cocaine Allergies/Adverse Reactions: Allergies Allergy/AdvReac Type Severity Reaction Status Date / Time Penicillins Allergy Unknown UNKNOWN Verified 04/20/18 17:20 History of Present Illness: 57 yo male with hx crack / cocaine dependence is here seeking rehab. Last rehab [facility] September 2017. PMHX: asthma, HTN, eczema, depression. Denies suicidal ideation. Denies hx of suicide. Denies hx of blackout or seizures. Reports longest period of sobriety one year (2013). Exam Limitations: No Limitations - Ebola screening Have you traveled outside of the country in the last 21 days: No Have you had contact with anyone from an Ebola affected area: No Have you been sick,other than usual withdrawal symptoms: No Do you have a fever: No - Review of Systems Constitutional: Changes in sleep, Unintentional Wgt. Loss EENT: reports: Cataracts (left eye), Other (uses reading glasses) Respiratory: reports: No Symptoms reported Cardiac: reports: No Symptoms Reported GI: reports: Poor Fluid Intake : reports: No Symptoms Reported Musculoskeletal: reports: No Symptoms Reported Integumentary: reports: Pruritus (eczema) Neuro: reports: No Symptoms reported Endocrine: reports: No Symptoms Reported Hematology: reports: No Symptoms Reported Psychiatric: reports: Orientated x3, Anxious Other Systems: Reviewed and Negative Patient History - Patient Medical History Hx Anemia: No Hx Asthma: Yes (Uses Albuterol inhlaer PRN.) Hx Chronic Obstructive Pulmonary Disease (COPD): No Hx Cancer: No Hx Cardiac Disorders: No Hx Congestive Heart Failure: No Hx Hypertension: Yes (Takes Amlodipine.) Hx Hypercholesterolemia: No Hx Pacemaker: No HX Cerebrovascular Accident: No Hx Seizures: No Hx Dementia: No Hx Diabetes: No Hx Gastrointestinal Disorders: No Hx Liver Disease: No Hx Genitourinary Disorders: No Hx Sexually Transmitted Disorders: No Hx Renal Disease (ESRD): No Hx Thyroid Disease: No Hx Human Immunodeficiency Virus (HIV): No (NEGATIVE HX; Last Tested: Winter 2016 ) Hx Hepatitis C: No (NEGATIVE HX.) Hx Depression: Yes (On meds.) Hx Suicide Attempt: No (PATIENT DENIES CURRENT SI / HI.) Hx Bipolar Disorder: No Hx Schizophrenia: No - Patient Surgical History Past Surgical History: No Hx Neurologic Surgery: No Hx Cataract Extraction: No Hx Cardiac Surgery: No Hx Lung Surgery: No Hx Breast Surgery: No Hx Breast Biopsy: No Hx Abdominal Surgery: No Hx Appendectomy: No Hx Cholecystectomy: No Hx Genitourinary Surgery: No Hx Section: No Hx Orthopedic Surgery: No Anesthesia Reaction: No - PPD History Previous Implant?: Yes Documented Results: Negative w/proof Date: 09/10/17 Results: 0 mm PPD to be Administered?: No - Smoking Cessation Smoking history: Former smoker Have you smoked in the past 12 months: Yes Aproximately how many cigarettes per day: 4 If you are a former smoker, when did you quit?: Approx. 1 month ago. Cigars Per Day: 0 Hx Chewing Tobacco Use: No Initiated information on smoking cessation: Yes 'Breaking Loose' booklet given: 04/20/18 - Substance & Tx. History Hx Alcohol Use: Yes Hx Substance Use: Yes Substance Use Type: Cocaine Hx Substance Use Treatment: Yes ([facility] September 2017) - Substances Abused Crack Route: Smoking Frequency: Daily Amount used: $60-100 Age of first use: 34 Date of Last Use: 03/30/18 Family Disease History - Family Disease History Family Disease History: Respiratory: Mother (Asthma ), Daughter (Asthma) Admission Physical Exam S - Vital Signs Vital Signs: Vital Signs - 24 hr 04/20/18 16:44 Temperature 97.6 F Pulse Rate 60 Respiratory 18 Rate Blood Pressure 131/76 - Physical General Appearance: Yes: Disheveled, Anxious HEENTM: Yes: EOMI, Hearing grossly Normal, Normal ENT Inspection, Normocephalic , Normal Voice, BRENNAN, Pharynx Normal, Tm's normal Respiratory: Yes: Chest Non-Tender, Lungs Clear, Normal Breath Sounds, No Respiratory Distress, No Accessory Muscle Use Neck: Yes: Within Normal Limits Breast: Yes: Breast Exam Deferred Cardiology: Yes: Regular Rhythm, Regular Rate, Murmur Abdominal: Yes: Normal Bowel Sounds, Non Tender, Flat, Soft Genitourinary: Yes: Within Normal Limits Back: Yes: Normal Inspection Musculoskeletal: Yes: full range of Motion, Gait Steady, Pelvis Stable Extremities: Yes: Normal Capillary Refill, Normal Inspection, Normal Range of Motion, Non-Tender Neurological: Yes: business development sales executive II-XII NML intact, Fully Oriented, Alert, Motor Strength 5/5, Depressed Affect Integumentary: Yes: Normal Color, Warm, Other (dry flaky skin) Lymphatic: Yes: Within Normal Limits - Diagnostic (1) Cocaine dependence Current Visit: No Status: Acute Qualifiers: Substance use status: uncomplicated Qualified Code(s): F14.20 - Cocaine dependence, uncomplicated (2) Dry skin dermatitis Current Visit: No Status: Acute (3) Asthma Current Visit: No Status: Chronic (4) Essential hypertension Current Visit: Yes Status: Chronic (5) Depressed mood Current Visit: Yes Status: Acute [facility] Breath Alcohol Content Breath Alcohol Content: 0 Urine Drug Screen - Results Drug Screen Negative: Yes Inpatient Rehab Admission - Initial Determination Are CD services needed?: Yes Free of communicable disease: Yes Not in need of hospitalization: Yes - Rehab Admission Criteria Previous failed treatment: Yes Poor recovery environment: Yes Comorbidities: Yes Lacks judgement: Yes Patient is meeting Inpatient Rehab admission criteria:: Yes
[2018-04-20] MEDS ORDERED: IBUPROFEN 400 MG TABLET (FP) PO PRN (17:54)
[2018-04-20] MEDS ORDERED: ACETAMINOPHEN 325 MG TABLET (FP) PO PRN (17:54)
[2018-04-20] MEDS ORDERED: LOPERAMIDE HCL 2 MG CAPSULE PO PRN (17:54)
[2018-04-20] MEDS ORDERED: MENTHOL/PHENOL 1 EACH UD MM PRN (17:54)
[2018-04-20] MEDS ORDERED: MAG HYDROX/AL HYDROX/SIMETH 30 ML UNIT-DOSE CUP PO PRN (17:54)
[2018-04-20] MEDS ORDERED: guaiFENesin/D-METHORPHAN HB 10 ML UNIT-DOSE CUPS PO PRN (17:54)
[2018-04-20] MEDS ORDERED: MAGNESIUM HYDROX 2400MG/30ML ORAL SUSPENSION 30 ML CUP PO PRN (17:54)
[2018-04-20] MEDS ORDERED: P-EPHED 60MG/TRIPROLIDI 2.5MG TABLET PO PRN (17:54)
[2018-04-20] MEDS ORDERED: MAGNESIUM CITRATE 300 ML BOTTLE PO PRN (17:54)
[2018-04-20] MEDS ORDERED: COLLOIDAL OATMEAL 1 BAR EACH TP PRN (17:58)
[2018-04-20] MEDS ORDERED: ALBUTEROL SO4 2.5/IPRATROPIUM 0.5 INH SOL 3 ML VIAL.NEB. NEB PRN (18:02)
[2018-04-20] MEDS: HYDROCORTISONE 1% TOPICAL OINT 30 GM TUBE TP SCH (21:28)
[2018-04-20] MEDS: TRIAMCINOLONE ACET 0.1% OINT 15 GM TUBE TP SCH (21:28)
[2018-04-20] MEDS: THIAMINE HCL 100 MG TABLET (FP) PO SCH (21:28)
[2018-04-20] MEDS: VITAMINS A AND D TOPICAL OINTMENT 60 GM TUBE TP SCH (21:28)
[2018-04-20] MEDS: ALBUTEROL SO4 8 GM HFA INHALER IH PRN (21:29)
[2018-04-20] MEDS: traZODone HCL 100 MG TABLET (FP) PO SCH (22:02)
--- NOTE | 2018-04-20 22:06 | PN ---
[facility] Progress Note Note: Psychiatry Attending's coconut boiler note : Called to enter orders for trazodone + citalopram. Mr Song is a new admission to [address] Records revisited.[facility] report is appreciated.Spoke to the patient. Via telephone.History taken.Medications verified.Via pharmacy claims. Noted refills dated 04/20/18.Confirmed by the patient.Side effects/benefits discussed. Patient is informed of the risk of priapism,sexual dysfunction and suicidal ideation. Willing to continue this regimen.Mr Song denies history of adverse events. Medications are reconciled. Citalopram 20 mg po daily Trazodone 100 mg po hs. Ordered with the patient's verbal consent. Discussed with nurse on duty.
[2018-04-21] MEDS: VITAMINS A AND D TOPICAL OINTMENT 60 GM TUBE TP SCH ×3 (06:32→22:00)
[2018-04-21] MEDS: HYDROCORTISONE 1% TOPICAL OINT 30 GM TUBE TP SCH ×2 (10:52→22:00)
[2018-04-21] MEDS: TRIAMCINOLONE ACET 0.1% OINT 15 GM TUBE TP SCH ×2 (10:52→22:00)
[2018-04-21] MEDS: PRENATAL VITAMINS W/ FOLIC ACID TABLET (FP) PO SCH (10:52)
[2018-04-21] MEDS: CITALOPRAM HYDROBROMIDE 20 MG TABLET (FP) PO SCH (10:53)
[2018-04-21] MEDS: amLODIPine BESYLATE 10 MG TABLET (FP) PO SCH (10:53)
--- NOTE | 2018-04-21 11:19 | HP ---
Psychiatrist Admission - Data Date of interview: 04/21/18 Admission source: [facility] Identifying data: Patient is a 57 year old single male, father of two, unemployed, homeless, and supported by [facility]. This is one of multiple admissions at Rehab in [facility]. Pt. admitted for crack/cocaine dependence. Medical History: Asthma, hypertension. Psychiatric History: Patient's first psychiatric contact was in 1994 for depression at [facility]. Pt. was admitted onto the [facility] psychiatric unit and started on risperdal in addition to other medications which patient is unable to recall. Pt. reports multiple psychatric hospitalizations, most recently at [facility] in April of 2018. Pt. was discharged and transferred to [facility] rehab. Pt. is currently prescribed Celexa 20mg + Trazodone 100mg. Pt. denies h/o OPD. Pt. receives his refills from emergency rooms and when admitted to a psychiatric facility. Pt. denies h/o suicide attempt. Pt. currently denies suicidal and homicidal ideation. Physical/Sexual Abuse/Trauma History: Denies. Vital Signs: Vital Signs - 24 hr 04/20/18 04/21/18 04/21/18 16:44 01:49 03:30 Temperature 97.6 F Pulse Rate 60 Respiratory 18 18 18 Rate Blood Pressure 131/76 04/21/18 06:49 Temperature 97.9 F Pulse Rate 59 L Respiratory 18 Rate Blood Pressure 123/73 Allergies/Adverse Reactions: Allergies Allergy/AdvReac Type Severity Reaction Status Date / Time Penicillins Allergy Unknown UNKNOWN Verified 04/20/18 17:20 Date of last physical exam: 04/20/18 Concur with the findings of this exam: Yes - Substance Abuse/Tx History Hx Alcohol Use: Yes Hx Substance Use: Yes (crack/cocaine- $60-$100 per day) Substance Use Type: Cocaine Hx Substance Use Treatment: Yes ([facility] in September of 2018) Mental Status Exam - Mental Status Exam Alert and Oriented to: Time, Place Mood: Hopeful, Euthymic Affect: Mood Congruent Patient Behavior: Appropriate, Cooperative Speech Pattern: Clear, Appropriate Voice Loudness: Normal Thought Process: Intact Thought Disorder: Not Present Hallucinations: Denies Suicidal Ideation: Denies Homicidal Ideation: Denies Insight/Judgement: Poor Sleep: Fair Appetite: Good Muscle strength/Tone: Normal Gait/Station: Normal Psychiatric Findings - Problem List ([place] 1, 2,3) (1) MDD (major depressive disorder) Current Visit: Yes Status: Chronic (2) Essential hypertension Current Visit: Yes Status: Chronic (3) Asthma Current Visit: Yes Status: Chronic Qualifiers: Asthma severity: moderate Asthma persistence: unspecified Asthma complication type: unspecified Qualified Code(s): J45.909 - Unspecified asthma , uncomplicated (4) Cocaine dependence Current Visit: Yes Status: Acute Qualifiers: Substance use status: uncomplicated Qualified Code(s): F14.20 - Cocaine dependence, uncomplicated - Initial Treatment Plan Initial Treatment Plan: Psychoeducation provided. Rehabilitation in progress. Pt to continue on current medication regime of Celexa 20mg + trazodone 100mg. Benefits and side effects reviewed. Verbal consent given.
[2018-04-21] MEDS ORDERED: PNEUMOCOCCAL 23 VACCINE 0.5 ML VIAL IM ONE (12:00)
[2018-04-21] MEDS ORDERED: PNEUMOC 13-VAL CONJ-DIP CRM/PF 0.5 ML DISP.SYRIN IM ONE (12:00)
--- NOTE | 2018-04-21 14:20 | EKG ---
Test Reason : Blood Pressure : / mmHG Vent. Rate : 058 BPM Atrial Rate : 058 BPM P-R Int : 160 ms QRS Dur : 088 ms QT Int : 418 ms P-R-T Axes : 067 076 025 degrees QTc Int : 410 ms SINUS BRADYCARDIA OTHERWISE NORMAL ECG WHEN COMPARED WITH ECG OF 08-SEP-2017 15:55, QT HAS SHORTENED Confirmed by ABIGAIL SCHMID MD ([id number]) on 04/21/2018 2:20:06 PM Referred By: Confirmed By:ABIGAIL SCHMID MD
[2018-04-21 14:29] LABS: HEMATOCRIT 42.3 % (35.4-49); MCH 30.7 pg (25.7-33.7); MCHC 33.1 g/dl (32.0-35.9); MEAN CELL VOLUME 92.8 fl (80-96); MEAN PLT VOLUME 8.4 fl (7.5-11.1); PLATELET COUNT 234 K/MM3 (134-434); RBC 4.56 M/mm3 (4.00-5.60); WHITE BLOOD COUNT 7.4 K/mm3 (4.0-10.0)
[2018-04-21 14:52] LABS: CHLORIDE 105 mmol/L (98-107); POTASSIUM 3.9 mmol/L (3.5-5.1); SODIUM 140 mmol/L (136-145)
[2018-04-21 15:08] LABS: ALBUMIN 3.6 g/dl (3.4-5.0); ALK PHOS 91 U/L (45-117); ANION GAP 9 (8-16); BILIRUBIN,TOTAL 0.1 mg/dL (0.2-1.0); BLOOD UREA NITROGEN 14 mg/dL (7-18); CALCIUM 8.9 mg/dL (8.5-10.1); CO2 26 mmol/L (21-32); CREATININE 1.1 mg/dL (0.7-1.3); GLUCOSE,RANDOM 106 mg/dL (74-106); SGOT/AST 26 U/L (15-37); SGPT/ALT 21 U/L (12-78)
[2018-04-21] MEDS: traZODone HCL 100 MG TABLET (FP) PO SCH (21:59)
[2018-04-21] MEDS: THIAMINE HCL 100 MG TABLET (FP) PO SCH (21:59)
[2018-04-22] MEDS: VITAMINS A AND D TOPICAL OINTMENT 60 GM TUBE TP SCH ×3 (07:03→21:29)
[2018-04-22] MEDS: amLODIPine BESYLATE 10 MG TABLET (FP) PO SCH (10:25)
[2018-04-22] MEDS: CITALOPRAM HYDROBROMIDE 20 MG TABLET (FP) PO SCH (10:25)
[2018-04-22] MEDS: PRENATAL VITAMINS W/ FOLIC ACID TABLET (FP) PO SCH (10:25)
[2018-04-22] MEDS: HYDROCORTISONE 1% TOPICAL OINT 30 GM TUBE TP SCH ×2 (10:26→21:29)
[2018-04-22] MEDS: TRIAMCINOLONE ACET 0.1% OINT 15 GM TUBE TP SCH ×2 (10:26→21:46)
[2018-04-22] MEDS: traZODone HCL 100 MG TABLET (FP) PO SCH (21:29)
[2018-04-22] MEDS: THIAMINE HCL 100 MG TABLET (FP) PO SCH (21:29)
[2018-04-23] MEDS: VITAMINS A AND D TOPICAL OINTMENT 60 GM TUBE TP SCH ×3 (09:53→21:57)
[2018-04-23] MEDS: PRENATAL VITAMINS W/ FOLIC ACID TABLET (FP) PO SCH (10:51)
[2018-04-23] MEDS: CITALOPRAM HYDROBROMIDE 20 MG TABLET (FP) PO SCH (10:51)
[2018-04-23] MEDS: amLODIPine BESYLATE 10 MG TABLET (FP) PO SCH (10:51)
[2018-04-23] MEDS: TRIAMCINOLONE ACET 0.1% OINT 15 GM TUBE TP SCH ×2 (10:52→21:57)
[2018-04-23] MEDS: HYDROCORTISONE 1% TOPICAL OINT 30 GM TUBE TP SCH ×2 (10:52→21:57)
[2018-04-23] MEDS: traZODone HCL 100 MG TABLET (FP) PO SCH (21:56)
[2018-04-23] MEDS: THIAMINE HCL 100 MG TABLET (FP) PO SCH (21:56)
[2018-04-23] MEDS: ALBUTEROL SO4 8 GM HFA INHALER IH PRN (21:56)
[2018-04-24] MEDS: VITAMINS A AND D TOPICAL OINTMENT 60 GM TUBE TP SCH ×3 (06:26→21:49)
[2018-04-24] MEDS: TRIAMCINOLONE ACET 0.1% OINT 15 GM TUBE TP SCH ×2 (10:36→21:49)
[2018-04-24] MEDS: PRENATAL VITAMINS W/ FOLIC ACID TABLET (FP) PO SCH (10:36)
[2018-04-24] MEDS: amLODIPine BESYLATE 10 MG TABLET (FP) PO SCH (10:36)
[2018-04-24] MEDS: HYDROCORTISONE 1% TOPICAL OINT 30 GM TUBE TP SCH ×2 (10:36→21:49)
[2018-04-24] MEDS: CITALOPRAM HYDROBROMIDE 20 MG TABLET (FP) PO SCH (10:36)
[2018-04-24] MEDS: traZODone HCL 100 MG TABLET (FP) PO SCH (21:48)
[2018-04-24] MEDS: ALBUTEROL SO4 8 GM HFA INHALER IH PRN (21:48)
[2018-04-24] MEDS: THIAMINE HCL 100 MG TABLET (FP) PO SCH (21:48)
[2018-04-25] MEDS: VITAMINS A AND D TOPICAL OINTMENT 60 GM TUBE TP SCH ×3 (07:43→21:50)
[2018-04-25] MEDS: PRENATAL VITAMINS W/ FOLIC ACID TABLET (FP) PO SCH (10:14)
[2018-04-25] MEDS: CITALOPRAM HYDROBROMIDE 20 MG TABLET (FP) PO SCH (10:14)
[2018-04-25] MEDS: amLODIPine BESYLATE 10 MG TABLET (FP) PO SCH (10:14)
[2018-04-25] MEDS: HYDROCORTISONE 1% TOPICAL OINT 30 GM TUBE TP SCH ×2 (10:15→21:50)
[2018-04-25] MEDS: TRIAMCINOLONE ACET 0.1% OINT 15 GM TUBE TP SCH ×2 (10:15→21:50)
[2018-04-25] MEDS: THIAMINE HCL 100 MG TABLET (FP) PO SCH (21:49)
[2018-04-25] MEDS: traZODone HCL 100 MG TABLET (FP) PO SCH (21:49)
[2018-04-26] MEDS: VITAMINS A AND D TOPICAL OINTMENT 60 GM TUBE TP SCH ×3 (08:06→21:41)
[2018-04-26] MEDS: HYDROCORTISONE 1% TOPICAL OINT 30 GM TUBE TP SCH ×2 (10:30→21:41)
[2018-04-26] MEDS: CITALOPRAM HYDROBROMIDE 20 MG TABLET (FP) PO SCH (10:30)
[2018-04-26] MEDS: amLODIPine BESYLATE 10 MG TABLET (FP) PO SCH (10:30)
[2018-04-26] MEDS: TRIAMCINOLONE ACET 0.1% OINT 15 GM TUBE TP SCH ×2 (10:30→21:43)
[2018-04-26] MEDS: PRENATAL VITAMINS W/ FOLIC ACID TABLET (FP) PO SCH (10:30)
[2018-04-26] MEDS: THIAMINE HCL 100 MG TABLET (FP) PO SCH (21:41)
[2018-04-26] MEDS: traZODone HCL 100 MG TABLET (FP) PO SCH (21:41)
[2018-04-27] MEDS: VITAMINS A AND D TOPICAL OINTMENT 60 GM TUBE TP SCH ×3 (07:42→21:33)
[2018-04-27] MEDS ORDERED: PT OWN MED DRAWER 7, Y5N ONE (09:07)
[2018-04-27] MEDS: CITALOPRAM HYDROBROMIDE 20 MG TABLET (FP) PO SCH (10:36)
[2018-04-27] MEDS: PRENATAL VITAMINS W/ FOLIC ACID TABLET (FP) PO SCH (10:36)
[2018-04-27] MEDS: TRIAMCINOLONE ACET 0.1% OINT 15 GM TUBE TP SCH ×2 (10:36→21:33)
[2018-04-27] MEDS: amLODIPine BESYLATE 10 MG TABLET (FP) PO SCH (10:36)
[2018-04-27] MEDS: HYDROCORTISONE 1% TOPICAL OINT 30 GM TUBE TP SCH ×2 (10:36→21:33)
[2018-04-27] MEDS: THIAMINE HCL 100 MG TABLET (FP) PO SCH (21:33)
[2018-04-27] MEDS: traZODone HCL 100 MG TABLET (FP) PO SCH (21:33)
[2018-04-28] MEDS: VITAMINS A AND D TOPICAL OINTMENT 60 GM TUBE TP SCH ×3 (07:14→21:47)
[2018-04-28] MEDS: CITALOPRAM HYDROBROMIDE 20 MG TABLET (FP) PO SCH (10:39)
[2018-04-28] MEDS: PRENATAL VITAMINS W/ FOLIC ACID TABLET (FP) PO SCH (10:39)
[2018-04-28] MEDS: amLODIPine BESYLATE 10 MG TABLET (FP) PO SCH (10:39)
[2018-04-28] MEDS: TRIAMCINOLONE ACET 0.1% OINT 15 GM TUBE TP SCH ×2 (10:40→21:47)
[2018-04-28] MEDS: HYDROCORTISONE 1% TOPICAL OINT 30 GM TUBE TP SCH ×2 (10:40→21:47)
[2018-04-28] MEDS: THIAMINE HCL 100 MG TABLET (FP) PO SCH (21:45)
[2018-04-28] MEDS: traZODone HCL 100 MG TABLET (FP) PO SCH (21:45)
[2018-04-28] MEDS: hydrOXYzine PAMOATE 50 MG CAPSULE (FP) PO PRN (21:46)
[2018-04-28] MEDS: MELATONIN 5 MG TABLETS PO PRN (21:47)
[2018-04-29] MEDS: VITAMINS A AND D TOPICAL OINTMENT 60 GM TUBE TP SCH ×3 (07:32→21:44)
[2018-04-29] MEDS: amLODIPine BESYLATE 10 MG TABLET (FP) PO SCH (10:36)
[2018-04-29] MEDS: CITALOPRAM HYDROBROMIDE 20 MG TABLET (FP) PO SCH (10:36)
[2018-04-29] MEDS: PRENATAL VITAMINS W/ FOLIC ACID TABLET (FP) PO SCH (10:36)
[2018-04-29] MEDS: TRIAMCINOLONE ACET 0.1% OINT 15 GM TUBE TP SCH ×2 (10:36→21:44)
[2018-04-29] MEDS: HYDROCORTISONE 1% TOPICAL OINT 30 GM TUBE TP SCH ×2 (10:36→21:44)
[2018-04-29] MEDS: traZODone HCL 100 MG TABLET (FP) PO SCH (21:44)
[2018-04-29] MEDS: THIAMINE HCL 100 MG TABLET (FP) PO SCH (21:44)
[2018-04-30] MEDS: VITAMINS A AND D TOPICAL OINTMENT 60 GM TUBE TP SCH ×4 (07:18→21:51)
[2018-04-30] MEDS ORDERED: PT OWN MED DRAWER 7, Y5N ONE (09:17)
[2018-04-30] MEDS: PRENATAL VITAMINS W/ FOLIC ACID TABLET (FP) PO SCH (10:31)
[2018-04-30] MEDS: CITALOPRAM HYDROBROMIDE 20 MG TABLET (FP) PO SCH (10:31)
[2018-04-30] MEDS: amLODIPine BESYLATE 10 MG TABLET (FP) PO SCH (10:31)
[2018-04-30] MEDS: HYDROCORTISONE 1% TOPICAL OINT 30 GM TUBE TP SCH ×2 (10:32→21:51)
[2018-04-30] MEDS: TRIAMCINOLONE ACET 0.1% OINT 15 GM TUBE TP SCH ×2 (10:33→21:51)
[2018-04-30] MEDS: traZODone HCL 100 MG TABLET (FP) PO SCH (21:49)
[2018-04-30] MEDS: THIAMINE HCL 100 MG TABLET (FP) PO SCH (21:49)
[2018-04-30] MEDS: hydrOXYzine PAMOATE 50 MG CAPSULE (FP) PO PRN (21:51)
[2018-05-01] MEDS: VITAMINS A AND D TOPICAL OINTMENT 60 GM TUBE TP SCH ×3 (07:02→22:08)
[2018-05-01] MEDS: PRENATAL VITAMINS W/ FOLIC ACID TABLET (FP) PO SCH (10:29)
[2018-05-01] MEDS: amLODIPine BESYLATE 10 MG TABLET (FP) PO SCH (10:30)
[2018-05-01] MEDS: CITALOPRAM HYDROBROMIDE 20 MG TABLET (FP) PO SCH (10:30)
[2018-05-01] MEDS: TRIAMCINOLONE ACET 0.1% OINT 15 GM TUBE TP SCH ×2 (10:59→22:08)
[2018-05-01] MEDS: HYDROCORTISONE 1% TOPICAL OINT 30 GM TUBE TP SCH ×2 (11:00→22:08)
[2018-05-01] MEDS: THIAMINE HCL 100 MG TABLET (FP) PO SCH (21:49)
[2018-05-01] MEDS: traZODone HCL 100 MG TABLET (FP) PO SCH (21:49)
[2018-05-01] MEDS: hydrOXYzine PAMOATE 50 MG CAPSULE (FP) PO PRN (21:50)
[2018-05-02] MEDS: VITAMINS A AND D TOPICAL OINTMENT 60 GM TUBE TP SCH ×3 (07:16→21:41)
[2018-05-02] MEDS: PRENATAL VITAMINS W/ FOLIC ACID TABLET (FP) PO SCH (10:34)
[2018-05-02] MEDS: TRIAMCINOLONE ACET 0.1% OINT 15 GM TUBE TP SCH ×2 (10:34→21:45)
[2018-05-02] MEDS: CITALOPRAM HYDROBROMIDE 20 MG TABLET (FP) PO SCH (10:34)
[2018-05-02] MEDS: amLODIPine BESYLATE 10 MG TABLET (FP) PO SCH (10:34)
[2018-05-02] MEDS: HYDROCORTISONE 1% TOPICAL OINT 30 GM TUBE TP SCH ×2 (10:34→21:41)
[2018-05-02] MEDS: THIAMINE HCL 100 MG TABLET (FP) PO SCH (21:41)
[2018-05-02] MEDS: traZODone HCL 100 MG TABLET (FP) PO SCH (21:41)
[2018-05-03] MEDS: VITAMINS A AND D TOPICAL OINTMENT 60 GM TUBE TP SCH ×3 (07:09→21:39)
[2018-05-03] MEDS: CITALOPRAM HYDROBROMIDE 20 MG TABLET (FP) PO SCH (10:19)
[2018-05-03] MEDS: PRENATAL VITAMINS W/ FOLIC ACID TABLET (FP) PO SCH (10:19)
[2018-05-03] MEDS: amLODIPine BESYLATE 10 MG TABLET (FP) PO SCH (10:19)
[2018-05-03] MEDS: TRIAMCINOLONE ACET 0.1% OINT 15 GM TUBE TP SCH ×2 (10:20→21:39)
[2018-05-03] MEDS: HYDROCORTISONE 1% TOPICAL OINT 30 GM TUBE TP SCH ×2 (10:21→21:39)
[2018-05-03] MEDS: THIAMINE HCL 100 MG TABLET (FP) PO SCH (21:39)
[2018-05-03] MEDS: traZODone HCL 100 MG TABLET (FP) PO SCH (21:39)
[2018-05-04] MEDS: VITAMINS A AND D TOPICAL OINTMENT 60 GM TUBE TP SCH ×3 (06:45→21:44)
[2018-05-04] MEDS: PRENATAL VITAMINS W/ FOLIC ACID TABLET (FP) PO SCH (10:33)
[2018-05-04] MEDS: CITALOPRAM HYDROBROMIDE 20 MG TABLET (FP) PO SCH (10:33)
[2018-05-04] MEDS: amLODIPine BESYLATE 10 MG TABLET (FP) PO SCH (10:33)
[2018-05-04] MEDS: TRIAMCINOLONE ACET 0.1% OINT 15 GM TUBE TP SCH ×2 (10:34→21:44)
[2018-05-04] MEDS: HYDROCORTISONE 1% TOPICAL OINT 30 GM TUBE TP SCH ×2 (10:34→21:43)
[2018-05-04] MEDS: MELATONIN 5 MG TABLETS PO PRN (21:42)
[2018-05-04] MEDS: traZODone HCL 100 MG TABLET (FP) PO SCH (21:42)
[2018-05-04] MEDS: THIAMINE HCL 100 MG TABLET (FP) PO SCH (21:44)
[2018-05-05] MEDS: VITAMINS A AND D TOPICAL OINTMENT 60 GM TUBE TP SCH ×3 (07:15→22:01)
[2018-05-05] MEDS: CITALOPRAM HYDROBROMIDE 20 MG TABLET (FP) PO SCH (10:24)
[2018-05-05] MEDS: TRIAMCINOLONE ACET 0.1% OINT 15 GM TUBE TP SCH ×2 (10:24→22:01)
[2018-05-05] MEDS: HYDROCORTISONE 1% TOPICAL OINT 30 GM TUBE TP SCH ×2 (10:24→22:01)
[2018-05-05] MEDS: PRENATAL VITAMINS W/ FOLIC ACID TABLET (FP) PO SCH (10:24)
[2018-05-05] MEDS: amLODIPine BESYLATE 10 MG TABLET (FP) PO SCH (10:24)
--- NOTE | 2018-05-05 12:51 | PN ---
[facility] Progress Note Note: PATIENT PRESENTS WITH C/O RASH TO FEET AND ITCHING. PATIENT DENIES PAIN TO FEET. PE: ALERT AND ORIENTED X 3. IN NAD. BILATERAL FEET WITH DRY CRACKED SKIN AND ONCHOMYCOTIC TOENAILS. NO EDEMA PRESENT. WILL ORDER TINACTN CREAM TO FEET BID AND CONTINUE TO MONITOR CLINICALLY.
[2018-05-05] MEDS: THIAMINE HCL 100 MG TABLET (FP) PO SCH (22:00)
[2018-05-05] MEDS: traZODone HCL 100 MG TABLET (FP) PO SCH (22:00)
[2018-05-05] MEDS: hydrOXYzine PAMOATE 50 MG CAPSULE (FP) PO PRN (22:01)
[2018-05-05] MEDS: TOLNAFTATE 1% CREAM 15 GM TUBE TP SCH (22:01)
[2018-05-06] MEDS: VITAMINS A AND D TOPICAL OINTMENT 60 GM TUBE TP SCH ×3 (07:21→21:58)
[2018-05-06] MEDS: CITALOPRAM HYDROBROMIDE 20 MG TABLET (FP) PO SCH (10:44)
[2018-05-06] MEDS: amLODIPine BESYLATE 10 MG TABLET (FP) PO SCH (10:44)
[2018-05-06] MEDS: PRENATAL VITAMINS W/ FOLIC ACID TABLET (FP) PO SCH (10:44)
[2018-05-06] MEDS: HYDROCORTISONE 1% TOPICAL OINT 30 GM TUBE TP SCH ×2 (10:46→21:59)
[2018-05-06] MEDS: TOLNAFTATE 1% CREAM 15 GM TUBE TP SCH ×2 (10:46→21:58)
[2018-05-06] MEDS: TRIAMCINOLONE ACET 0.1% OINT 15 GM TUBE TP SCH ×2 (13:14→21:59)
[2018-05-06] MEDS: hydrOXYzine PAMOATE 50 MG CAPSULE (FP) PO PRN (21:58)
[2018-05-06] MEDS: traZODone HCL 100 MG TABLET (FP) PO SCH (21:58)
[2018-05-06] MEDS: THIAMINE HCL 100 MG TABLET (FP) PO SCH (21:58)
[2018-05-07] MEDS: VITAMINS A AND D TOPICAL OINTMENT 60 GM TUBE TP SCH ×3 (07:02→21:53)
[2018-05-07] MEDS: CITALOPRAM HYDROBROMIDE 20 MG TABLET (FP) PO SCH (10:52)
[2018-05-07] MEDS: PRENATAL VITAMINS W/ FOLIC ACID TABLET (FP) PO SCH (10:52)
[2018-05-07] MEDS: amLODIPine BESYLATE 10 MG TABLET (FP) PO SCH (10:52)
[2018-05-07] MEDS: TRIAMCINOLONE ACET 0.1% OINT 15 GM TUBE TP SCH ×2 (10:53→21:26)
[2018-05-07] MEDS: HYDROCORTISONE 1% TOPICAL OINT 30 GM TUBE TP SCH ×3 (10:53→21:26)
[2018-05-07] MEDS: TOLNAFTATE 1% CREAM 15 GM TUBE TP SCH ×2 (10:53→21:26)
[2018-05-07] MEDS: traZODone HCL 100 MG TABLET (FP) PO SCH (21:25)
[2018-05-07] MEDS: hydrOXYzine PAMOATE 50 MG CAPSULE (FP) PO PRN (21:25)
[2018-05-07] MEDS: THIAMINE HCL 100 MG TABLET (FP) PO SCH (21:26)
[2018-05-08] MEDS: VITAMINS A AND D TOPICAL OINTMENT 60 GM TUBE TP SCH ×3 (06:20→22:00)
[2018-05-08] MEDS: TRIAMCINOLONE ACET 0.1% OINT 15 GM TUBE TP SCH ×2 (10:57→21:59)
[2018-05-08] MEDS: HYDROCORTISONE 1% TOPICAL OINT 30 GM TUBE TP SCH ×2 (10:57→22:00)
[2018-05-08] MEDS: TOLNAFTATE 1% CREAM 15 GM TUBE TP SCH ×2 (10:58→22:00)
[2018-05-08] MEDS: amLODIPine BESYLATE 10 MG TABLET (FP) PO SCH (10:58)
[2018-05-08] MEDS: PRENATAL VITAMINS W/ FOLIC ACID TABLET (FP) PO SCH (10:58)
[2018-05-08] MEDS: CITALOPRAM HYDROBROMIDE 20 MG TABLET (FP) PO SCH (10:58)
[2018-05-08] MEDS: traZODone HCL 100 MG TABLET (FP) PO SCH (21:58)
[2018-05-08] MEDS: THIAMINE HCL 100 MG TABLET (FP) PO SCH (21:58)
[2018-05-08] MEDS: hydrOXYzine PAMOATE 50 MG CAPSULE (FP) PO PRN (21:59)
[2018-05-09] MEDS: VITAMINS A AND D TOPICAL OINTMENT 60 GM TUBE TP SCH ×3 (06:51→21:27)
[2018-05-09] MEDS: TRIAMCINOLONE ACET 0.1% OINT 15 GM TUBE TP SCH ×2 (10:22→21:27)
[2018-05-09] MEDS: amLODIPine BESYLATE 10 MG TABLET (FP) PO SCH (10:22)
[2018-05-09] MEDS: CITALOPRAM HYDROBROMIDE 20 MG TABLET (FP) PO SCH (10:22)
[2018-05-09] MEDS: PRENATAL VITAMINS W/ FOLIC ACID TABLET (FP) PO SCH (10:22)
[2018-05-09] MEDS: TOLNAFTATE 1% CREAM 15 GM TUBE TP SCH ×2 (10:23→21:27)
[2018-05-09] MEDS: HYDROCORTISONE 1% TOPICAL OINT 30 GM TUBE TP SCH ×2 (10:23→21:27)
[2018-05-09] MEDS: traZODone HCL 100 MG TABLET (FP) PO SCH (21:26)
[2018-05-09] MEDS: THIAMINE HCL 100 MG TABLET (FP) PO SCH (21:26)
[2018-05-10] MEDS: VITAMINS A AND D TOPICAL OINTMENT 60 GM TUBE TP SCH (06:54)
[2018-05-10 07:12] VITALS: BP 140/82; PULSE 70; TEMP 98
--- NOTE | 2018-05-10 07:39 | PN ---
Psychiatric Progress Note Vital Signs: Vital Signs Period Temp Pulse Resp BP Sys/Chavez Pulse Ox Last 24 Hr 98.0 F 70-83 18-18 133-140/82-83 Date of Session: 05/10/18 Chief Complaint:: Discharge Note HPI: Patient addressing Cocaine Dependence comorbid with Nicotine Dependence and MDD ROS: HTN, Asthma Current Medications: Active Medications Generic Name Dose Route Start Last Admin Trade Name Freq PRN Reason Stop Dose Admin Acetaminophen 650 mg 04/20/18 17:54 Tylenol - PO Q4H PRN FEVER Al Hydroxide/Mg Hydroxide 30 ml 04/20/18 17:54 Mylanta Oral Suspension - PO Q6H PRN DYSPEPSIA Albuterol Sulfate 2 puff 04/20/18 17:53 04/24/18 21:48 Ventolin Hfa Inhaler - IH 2 puff Q4H PRN Administration ASTHMA Amlodipine Besylate 10 mg 04/21/18 10:00 05/09/18 10:22 Norvasc - PO 10 mg DAILY ANAHI Administration Citalopram Hydrobromide 20 mg 04/21/18 10:00 05/09/18 10:22 Celexa - PO 20 mg DAILY ANAHI Administration Colloidal Oatmeal 1 applic 04/20/18 17:58 04/21/18 10:51 Aveeno Soap - TP 1 bar DAILY PRN Administration HYGEINE Eucalyptus/Menthol/Phenol/Sorbitol 1 each 04/20/18 17:54 Cepastat Lozenge - MM Q4H PRN SORE THROAT Guaifenesin 10 ml 04/20/18 17:54 Robitussin Dm - PO Q6H PRN COUGH Hydrocortisone 1 applic 04/20/18 22:00 05/09/18 21:27 Hytone 1% Ointment - TP Not Given BID ANAHI Hydroxyzine Pamoate 50 mg 04/20/18 17:54 05/08/18 21:59 Vistaril - PO 50 mg Q4H PRN Administration AGITATION Ibuprofen 400 mg 04/20/18 17:54 Motrin - PO Q6H PRN Pain level 4-6 Loperamide HCl 4 mg 04/20/18 17:54 Imodium - PO Q6H PRN DIARRHEA Magnesium Citrate 300 ml 04/20/18 17:54 Citroma - PO Q48H PRN CONSTIPATION Magnesium Hydroxide 30 ml 04/20/18 17:54 Milk Of Magnesia - PO DAILY PRN CONSTIPATION Melatonin 5 mg 04/20/18 22:00 05/04/18 21:42 Melatonin PO 5 mg HS PRN Administration INSOMNIA Multivit/Folic Acid/Iron 1 tab 04/21/18 10:00 05/09/18 10:22 Vitamins (Sjr) - PO 1 tab DAILY ANAHI Administration Pseudoephedrine/Triprolidine 1 combo 04/20/18 17:54 Actifed - PO TID PRN NASAL CONGESTION Thiamine HCl 100 mg 04/20/18 22:00 05/09/18 21:26 Vitamin B1 - PO 100 mg HS ANAHI Administration Tolnaftate 1 applic 05/05/18 22:00 05/09/18 21:27 Tinactin 1% Cream - TP Not Given BID ANAHI Trazodone HCl 100 mg 04/20/18 22:00 05/09/18 21:26 Desyrel - PO 100 mg HS ANAHI Administration Triamcinolone Acetonide 1 applic 04/20/18 22:00 05/09/18 21:27 Aristocort 0.1% Ointment - TP Not Given BID ANAHI Vitamin A/Vitamin D 1 applic 04/20/18 22:00 05/10/18 06:54 Vitamin A & D Top Oint - TP Not Given TID ANAHI Current Side Effect: No Lab tests ordered: Yes Lab tests reviewed: Yes Provider note:: Patient has completed this program today. He has met his treatment plan and will continue to address his issues in outpatient treatment in [facility]. Told medical technical writer:"I'm tired of coming to places like this. I have to apply what I have learned". He responded well to Celexa 20 mg po daily and Trazadone 100 mg po HS. scripts for 30 days supply of medications are electronically transmitted to [facility] at [address] [place] [id number]. He is stable for discharged today Total face to face time:: 35 Mental Status Exam - Mental Status Exam Alert and Oriented to: Time, Place, Person Cognitive Function: Fair Patient Appearance: Disheveled Mood: Expansive, Happy Affect: Appropriate Patient Behavior: Cooperative Speech Pattern: Clear Voice Loudness: Normal Thought Process: Intact, Goal Oriented Thought Disorder: Not Present Hallucinations: Denies Suicidal Ideation: Denies Homicidal Ideation: Denies Insight/Judgement: Fair Sleep: Fair Appetite: Good Muscle strength/Tone: Normal Gait/Station: Normal Psychiatric Treatment Plan - Problem List (1) Cocaine dependence Current Visit: Yes Qualifiers: Substance use status: uncomplicated Qualified Code(s): F14.20 - Cocaine dependence, uncomplicated (2) Nicotine dependence Current Visit: Yes (3) MDD (major depressive disorder) Current Visit: Yes (4) Asthma Current Visit: Yes Qualifiers: Asthma severity: moderate Asthma persistence: unspecified Asthma complication type: unspecified Qualified Code(s): J45.909 - Unspecified asthma , uncomplicated (5) Essential hypertension Current Visit: Yes Initial treatment plan: Patient is discharged today an referred to [facility] for outpatient treatment
[2018-05-10] MEDS: amLODIPine BESYLATE 10 MG TABLET (FP) PO SCH (09:30)
[2018-05-10] MEDS: TRIAMCINOLONE ACET 0.1% OINT 15 GM TUBE TP SCH (09:30)
[2018-05-10] MEDS: TOLNAFTATE 1% CREAM 15 GM TUBE TP SCH (09:30)
[2018-05-10] MEDS: PRENATAL VITAMINS W/ FOLIC ACID TABLET (FP) PO SCH (09:30)
[2018-05-10] MEDS: CITALOPRAM HYDROBROMIDE 20 MG TABLET (FP) PO SCH (09:30)
[2018-05-10] MEDS: HYDROCORTISONE 1% TOPICAL OINT 30 GM TUBE TP SCH (09:30)
== END 2018-05-10 10:00 | disposition home or self-care (01) | DRG 895 ==
LOC: YASAS 15:34 → Y5N 18:17
PROVIDERS: ADMIT Psychiatry & Neurology Psychiatry; ATTEND Psychiatry & Neurology Psychiatry
PROC: HZ42ZZZ Group Counseling for Substance Abuse Treatment, Cognitive-Behavioral (ICD-10-PCS; principal; 2018-04-20)
DX: F14.20 Cocaine dependence, uncomplicated (principal); F33.9 Major depressive disorder, recurrent, unspecified; B49 Unspecified mycosis; F17.210 Nicotine dependence, cigarettes, uncomplicated; F32.9 Major depressive disorder, single episode, unspecified; I10 Essential (primary) hypertension; J45.909 Unspecified asthma, uncomplicated; L85.3 Xerosis cutis; Z88.0 Allergy status to penicillin
CPT/HCPCS: 36415; 80053; 85027; 86593; 87389; 93005; 93010

== ENCOUNTER 2018-12-03 11:06 | Inpatient (IN) | payer OTHER ==
[2018-12-03 11:36] VITALS: BMI 30.4
--- NOTE | 2018-12-03 14:24 | HP ---
CIWA Score - Admission Criteria OASAS Guidelines: Admission for Medically Managed Detox: Requires at least one of the followin. CIWA greater than 12 2. Seizures within the past 24 hours 3. Delirium tremens within the past 24 hours 4. Hallucinations within the past 24 hours 5. Acute intervention needed for co occurring medical disorder 6. Acute intervention needed for co occurring psychiatric disorder 7. Severe withdrawal that cannot be handled at a lower level of care (continued vomiting, continued diarrhea, abnormal vital signs) requiring intravenous medication and/or fluids 8. Admission ROS [facility] Chief Complaint: Pt is here for rehab. pt was at at [facility] from and discharged on 12/03/18. pt was hospitalized for depression. pt states he feels ready for rehab and move forward. Allergies/Adverse Reactions: Allergies Allergy/AdvReac Type Severity Reaction Status Date / Time Penicillins Allergy Unknown UNKNOWN Verified 12/03/18 13:15 History of Present Illness: pt is a 58yr old male history of alcohol and cocaine dependence. pt was admitted for depression then he was detoxed from the alcohol dependence. pt is here for rehab for further treatment after released from [facility]. Exam Limitations: No Limitations - Ebola screening Have you traveled outside of the country in the last 21 days: No Have you had contact with anyone from an Ebola affected area: No Have you been sick,other than usual withdrawal symptoms: No Do you have a fever: No - Review of Systems Constitutional: No Symptoms Reported EENT: reports: No Symptoms Reported Respiratory: reports: No Symptoms reported Cardiac: reports: No Symptoms Reported GI: reports: No Symptoms Reported : reports: No Symptoms Reported Musculoskeletal: reports: No Symptoms Reported Integumentary: reports: Other (eczema/dry skin) Neuro: reports: No Symptoms reported Endocrine: reports: No Symptoms Reported Hematology: reports: No Symptoms Reported Psychiatric: reports: Judgement Intact, Mood/Affect Appropiate, Orientated x3 Other Systems: Reviewed and Negative Patient History - Patient Medical History Hx Anemia: No Hx Asthma: Yes Hx Chronic Obstructive Pulmonary Disease (COPD): No Hx Cancer: No Hx Cardiac Disorders: No Hx Congestive Heart Failure: No Hx Hypertension: Yes Hx Hypercholesterolemia: No Hx Pacemaker: No HX Cerebrovascular Accident: No Hx Seizures: No Hx Dementia: No Hx Diabetes: No Hx Gastrointestinal Disorders: No Hx Liver Disease: No Hx Genitourinary Disorders: No Hx Sexually Transmitted Disorders: No Hx Renal Disease (ESRD): No Hx Thyroid Disease: No Hx Human Immunodeficiency Virus (HIV): No (NEGATIVE HX; Last Tested: Winter 2016 ) Hx Hepatitis C: No (NEGATIVE HX.) Hx Depression: Yes Hx Suicide Attempt: No (pt denies) Hx Bipolar Disorder: No Hx Schizophrenia: No - Patient Surgical History Past Surgical History: No Hx Neurologic Surgery: No Hx Cataract Extraction: No Hx Cardiac Surgery: No Hx Lung Surgery: No Hx Breast Surgery: No Hx Breast Biopsy: No Hx Abdominal Surgery: No Hx Appendectomy: No Hx Cholecystectomy: No Hx Genitourinary Surgery: No Hx Section: No Hx Orthopedic Surgery: No Anesthesia Reaction: No - PPD History Previous Implant?: Yes Documented Results: Negative w/proof Implanted On Prior [facility] Admission?: Yes Date: 05/20/18 Results: 0 mm PPD to be Administered?: No - Reproductive History Patient is a Female of Child Bearing Age (11 -55 yrs old): No - Smoking Cessation Smoking history: Former smoker Have you smoked in the past 12 months: Yes Aproximately how many cigarettes per day: 10 If you are a former smoker, when did you quit?: 09/2018 Cigars Per Day: 0 Hx Chewing Tobacco Use: No Initiated information on smoking cessation: Yes 'Breaking Loose' booklet given: 12/03/18 - Substance & Tx. History Hx Alcohol Use: Yes Hx Substance Use: Yes Substance Use Type: Alcohol, Cocaine Hx Substance Use Treatment: Yes ([facility] 10/2018) - Substances Abused Crack Route: Smoking Frequency: 3-6 times per week Amount used: $100 Age of first use: 34 Date of Last Use: 10/15/18 Alcohol-rum/beer Route: Oral Frequency: Daily Amount used: 2 pts./1 1/2-6 pks. Age of first use: 21 Date of Last Use: 10/15/18 Family Disease History - Family Disease History Family Disease History: Respiratory: Mother (Asthma ), Daughter (Asthma) Admission Physical Exam S - Vital Signs Vital Signs: Vital Signs - 24 hr 12/03/18 11:33 Temperature 98.1 F Pulse Rate 93 H Respiratory 18 Rate Blood Pressure 131/78 - Physical General Appearance: Yes: Appropriately Dressed HEENTM: Yes: Normal Voice Respiratory: Yes: Within Normal Limits, Lungs Clear, Normal Breath Sounds, No Respiratory Distress Neck: Yes: No masses,lesions,Nodules Breast: Yes: Within Normal Limits Cardiology: Yes: Regular Rhythm, Regular Rate, S1, S2 Abdominal: Yes: Normal Bowel Sounds, Non Tender, Soft Genitourinary: Yes: Within Normal Limits Back: Yes: Normal Inspection Musculoskeletal: Yes: full range of Motion Extremities: Yes: Normal Capillary Refill, Normal Inspection Neurological: Yes: Fully Oriented, Alert, Normal Response Integumentary: Yes: Normal Color Lymphatic: Yes: Within Normal Limits - Diagnostic (1) Cocaine dependence Current Visit: No Status: Chronic Qualifiers: Substance use status: uncomplicated Qualified Code(s): F14.20 - Cocaine dependence, uncomplicated (2) Fungal infection Current Visit: Yes Status: Chronic (3) Nicotine dependence Current Visit: Yes Status: Chronic Qualifiers: Nicotine product type: cigarettes Substance use status: uncomplicated Qualified Code(s): F17.210 - Nicotine dependence, cigarettes, uncomplicated (4) Nicotine dependence Current Visit: Yes Status: Chronic Qualifiers: Nicotine product type: cigarettes Substance use status: uncomplicated Qualified Code(s): F17.210 - Nicotine dependence, cigarettes, uncomplicated (5) Alcohol dependence in remission Current Visit: Yes Status: Chronic (6) Asthma Current Visit: Yes Status: Chronic Qualifiers: Asthma severity: moderate Asthma persistence: unspecified Asthma complication type: unspecified Qualified Code(s): J45.909 - Unspecified asthma , uncomplicated (7) Cocaine dependence, uncomplicated Current Visit: Yes Status: Chronic (8) Dry skin dermatitis Current Visit: Yes Status: Chronic (9) Essential hypertension Current Visit: Yes Status: Chronic (10) History of depression Current Visit: No Status: Chronic (11) MDD (major depressive disorder) Current Visit: No Status: Chronic (12) Major depressive disorder, recurrent episode, moderate Current Visit: No Status: Chronic Cleared for Admission S - Detox or Rehab [facility] Level of Care: Medically Managed Claeared for Rehab Admission: Yes [facility] Breath Alcohol Content Breath Alcohol Content: 0 Urine Drug Screen - Results Drug Screen Negative: Yes Inpatient Rehab Admission - Rehab Decision to Admit Inpatient rehab admission?: Yes - Initial Determination Are CD services needed?: Yes Free of communicable disease: Yes Not in need of hospitalization: Yes - Rehab Admission Criteria Previous failed treatment: Yes Poor recovery environment: Yes Comorbidities: Yes Lacks judgement: Yes Patient is meeting Inpatient Rehab admission criteria:: Yes
[2018-12-03] MEDS ORDERED: ACETAMINOPHEN 325 MG TABLET (FP) PO PRN (14:41)
[2018-12-03] MEDS ORDERED: guaiFENesin/D-METHORPHAN HB 10 ML UNIT-DOSE CUPS PO PRN (14:41)
[2018-12-03] MEDS ORDERED: MAGNESIUM HYDROX 2400MG/30ML ORAL SUSPENSION 30 ML CUP PO PRN (14:41)
[2018-12-03] MEDS ORDERED: IBUPROFEN 400 MG TABLET (FP) PO PRN (14:41)
[2018-12-03] MEDS ORDERED: P-EPHED 60MG/TRIPROLIDI 2.5MG TABLET PO PRN (14:41)
[2018-12-03] MEDS ORDERED: MAGNESIUM CITRATE 300 ML BOTTLE PO PRN (14:41)
[2018-12-03] MEDS ORDERED: MAG HYDROX/AL HYDROX/SIMETH 30 ML UNIT-DOSE CUP PO PRN (14:41)
[2018-12-03] MEDS ORDERED: LOPERAMIDE HCL 2 MG CAPSULE PO PRN (14:41)
[2018-12-03] MEDS ORDERED: MENTHOL/PHENOL 1 EACH UD MM PRN (14:41)
[2018-12-03] MEDS ORDERED: NICOTINE POLACRILEX 4 MG GUM BC PRN (14:41)
[2018-12-03] MEDS: COLLOIDAL OATMEAL 1 BAR EACH TP PRN (18:24)
[2018-12-03] MEDS: HYDROCORTISONE 1% TOPICAL CREAM 30 GM TUBE TP SCH (21:05)
[2018-12-03] MEDS: THIAMINE HCL 100 MG TABLET (FP) PO SCH (21:05)
[2018-12-03] MEDS: MELATONIN 5 MG TABLETS PO PRN (21:06)
[2018-12-04] MEDS: HYDROCORTISONE 1% TOPICAL CREAM 30 GM TUBE TP SCH ×2 (09:24→21:29)
[2018-12-04] MEDS: NICOTINE 21 MG/24 HOURS TOPICAL PATCH TD SCH (09:24)
[2018-12-04] MEDS: amLODIPine BESYLATE 10 MG TABLET (FP) PO SCH (09:25)
[2018-12-04] MEDS: PRENATAL VITAMINS W/ FOLIC ACID TABLET (FP) PO SCH (09:25)
[2018-12-04] MEDS: ALBUTEROL SO4 8 GM HFA INHALER IH PRN (09:26)
[2018-12-04] MEDS: TOLNAFTATE 1% CREAM 15 GM TUBE TP SCH ×2 (09:27→21:29)
[2018-12-04 10:26] LABS: HEMATOCRIT 42.5 % (35.4-49); HEMOGLOBIN 14.6 GM/dL (11.7-16.9); MCH 30.8 pg (25.7-33.7); MCHC 34.3 g/dl (32.0-35.9); MEAN CELL VOLUME 89.7 fl (80-96); MEAN PLT VOLUME 8.1 fl (7.5-11.1); PLATELET COUNT 301 K/MM3 (134-434); RBC 4.73 M/mm3 (4.00-5.60); RDW 13.8 % (11.9-15.9); WHITE BLOOD COUNT 9.5 K/mm3 (4.0-10.0)
[2018-12-04 10:28] LABS: ALBUMIN 3.9 g/dl (3.4-5.0); ALK PHOS 116 U/L (45-117); ANION GAP 7 MMOL/L (8-16); BILIRUBIN,TOTAL 0.2 mg/dL (0.2-1); BLOOD UREA NITROGEN 20 mg/dL (7-18); CALCIUM 8.9 mg/dL (8.5-10.1); CHLORIDE 104 mmol/L (98-107); CO2 25 mmol/L (21-32); CREATININE 1.1 mg/dL (0.55-1.3); GLUCOSE,RANDOM 79 mg/dL (74-106); POTASSIUM 4.4 mmol/L (3.5-5.1); SGOT/AST 28 U/L (15-37); SGPT/ALT 21 U/L (13-61); SODIUM 136 mmol/L (136-145); TOT PROT 7.7 g/dl (6.4-8.2)
[2018-12-04] MEDS: TACROLIMUS 30 GM TP SCH ×3 (11:00→21:29)
[2018-12-04] MEDS: THIAMINE HCL 100 MG TABLET (FP) PO SCH (21:28)
[2018-12-04] MEDS: MELATONIN 5 MG TABLETS PO PRN (21:30)
[2018-12-04] MEDS: hydrOXYzine PAMOATE 50 MG CAPSULE (FP) PO PRN (21:30)
[2018-12-05] MEDS: TACROLIMUS 30 GM TP SCH ×2 (09:45→21:04)
[2018-12-05] MEDS: PRENATAL VITAMINS W/ FOLIC ACID TABLET (FP) PO SCH (09:45)
[2018-12-05] MEDS: amLODIPine BESYLATE 10 MG TABLET (FP) PO SCH (09:45)
[2018-12-05] MEDS: TOLNAFTATE 1% CREAM 15 GM TUBE TP SCH ×2 (09:45→21:04)
[2018-12-05] MEDS: HYDROCORTISONE 1% TOPICAL CREAM 30 GM TUBE TP SCH ×2 (09:46→21:05)
[2018-12-05] MEDS: NICOTINE 21 MG/24 HOURS TOPICAL PATCH TD SCH (09:46)
[2018-12-05 10:56] LABS: URINE APPEARANCE CLEAR; URINE BILIRUBIN NEGATIVE (<2.0 mg/dL); URINE COLOR LTYELLOW; URINE GLUCOSE (UA) NEGATIVE (NEGATIVE); URINE KETONE NEGATIVE (NEGATIVE); URINE LEUK ESTERASE NEGATIVE (NEGATIVE); URINE NITRITE NEGATIVE (NEGATIVE); URINE PROTEIN NEGATIVE (NEGATIVE); URINE UROBILINOGEN NEGATIVE mg/dL (0.2-1.0)
[2018-12-05] MEDS: THIAMINE HCL 100 MG TABLET (FP) PO SCH (21:04)
[2018-12-05] MEDS: MELATONIN 5 MG TABLETS PO PRN (21:05)
[2018-12-05] MEDS: hydrOXYzine PAMOATE 50 MG CAPSULE (FP) PO PRN (21:06)
[2018-12-06] MEDS: amLODIPine BESYLATE 10 MG TABLET (FP) PO SCH (09:48)
[2018-12-06] MEDS: PRENATAL VITAMINS W/ FOLIC ACID TABLET (FP) PO SCH (09:48)
[2018-12-06] MEDS: TACROLIMUS 30 GM TP SCH ×2 (09:49→21:16)
[2018-12-06] MEDS: NICOTINE 21 MG/24 HOURS TOPICAL PATCH TD SCH (09:50)
[2018-12-06] MEDS: HYDROCORTISONE 1% TOPICAL CREAM 30 GM TUBE TP SCH ×2 (09:50→21:16)
[2018-12-06] MEDS: TOLNAFTATE 1% CREAM 15 GM TUBE TP SCH ×2 (09:50→21:15)
--- NOTE | 2018-12-06 11:11 | CONSULT ---
[facility] Psychiatric Consult - Data Date of interview: 12/06/18 Admission source: [facility] Identifying data: This is one of the multiple admissions to [address] [place] [address] rehabilitation for this 58 years old AA single male father of 2,unemployed, supported by SSD admitted for Cocaine dependence,Alcohol abuse. Substance Abuse History: patient reports starting using cocaine/crack since 38 years old,spending about $80-100 daily.Longest abstinence is about 1 year.Alcohol since 21 yo on and off. Medical History: Significant for HTN,BA. Psychiatric History: Reports first contact with psychiatrist in 1994 to address deoressed mood,anxiety.He was hospitalized to [facility],dx with Depresssive disorder and placed on medications(no recollection).He reports multiple psychiatric hospitalizations..Most recent to [facility] [place] in 2018 due to depressed mood,drug use,sleeping difficulties and anxiety.Patient denies any suicidal attempts.No psychiatric OPD care,obtais psychotropics from local ER.He is currently on trazodone 150 mg po hs and celexa 20 mg po daily, reports having some supply at home still.patient is willing to restart all of the above medications. Physical/Sexual Abuse/Trauma History: Denies Mental Status Exam - Mental Status Exam Alert and Oriented to: Time, Place, Person Cognitive Function: Grossly Intact Patient Appearance: Unkempt Mood: Sad, Anxious Affect: Mood Congruent, Labile Patient Behavior: Cooperative Speech Pattern: Clear Voice Loudness: Normal Thought Process: Goal Oriented Thought Disorder: Not Present Hallucinations: Denies Suicidal Ideation: Denies Homicidal Ideation: Denies Insight/Judgement: Fair Sleep: Fair Appetite: Good Muscle strength/Tone: Normal Gait/Station: Normal Psychiatric Findings - Problem List ([place] 1, 2,3) (1) Asthma Current Visit: Yes Status: Chronic Qualifiers: Asthma severity: moderate Asthma persistence: unspecified Asthma complication type: unspecified Qualified Code(s): J45.909 - Unspecified asthma , uncomplicated (2) Cocaine dependence, uncomplicated Current Visit: Yes Status: Chronic (3) Dry skin dermatitis Current Visit: Yes Status: Chronic (4) Essential hypertension Current Visit: Yes Status: Chronic (5) Fungal infection Current Visit: Yes Status: Chronic (6) Nicotine dependence Current Visit: Yes Status: Chronic Qualifiers: Nicotine product type: cigarettes Substance use status: uncomplicated Qualified Code(s): F17.210 - Nicotine dependence, cigarettes, uncomplicated (7) Alcohol dependence Current Visit: Yes Status: Chronic (8) Nicotine dependence Current Visit: Yes Status: Chronic Qualifiers: Nicotine product type: cigarettes Substance use status: uncomplicated Qualified Code(s): F17.210 - Nicotine dependence, cigarettes, uncomplicated (9) Cocaine dependence Current Visit: No Status: Chronic Qualifiers: Substance use status: uncomplicated Qualified Code(s): F14.20 - Cocaine dependence, uncomplicated (10) Major depressive disorder, recurrent episode, moderate Current Visit: Yes Status: Chronic - Initial Treatment Plan Initial Treatment Plan: Continue current medications:Trazodone 150 mg po hs and Celexa 20 mg po daily. Will monitor porgress.
[2018-12-06] MEDS: CITALOPRAM HYDROBROMIDE 20 MG TABLET (FP) PO SCH (12:35)
[2018-12-06] MEDS: hydrOXYzine PAMOATE 50 MG CAPSULE (FP) PO PRN ×2 (17:39→21:14)
[2018-12-06] MEDS: traZODone HCL 50 MG TABLET (FP) PO SCH (21:15)
[2018-12-06] MEDS: THIAMINE HCL 100 MG TABLET (FP) PO SCH (21:15)
[2018-12-07] MEDS: HYDROCORTISONE 1% TOPICAL CREAM 30 GM TUBE TP SCH ×2 (09:53→21:09)
[2018-12-07] MEDS: NICOTINE 21 MG/24 HOURS TOPICAL PATCH TD SCH (09:53)
[2018-12-07] MEDS: PRENATAL VITAMINS W/ FOLIC ACID TABLET (FP) PO SCH (09:53)
[2018-12-07] MEDS: CITALOPRAM HYDROBROMIDE 20 MG TABLET (FP) PO SCH (09:53)
[2018-12-07] MEDS: amLODIPine BESYLATE 10 MG TABLET (FP) PO SCH (09:53)
[2018-12-07] MEDS: TACROLIMUS 30 GM TP SCH ×2 (09:54→21:09)
[2018-12-07] MEDS: TOLNAFTATE 1% CREAM 15 GM TUBE TP SCH ×2 (09:54→21:09)
[2018-12-07] MEDS: traZODone HCL 50 MG TABLET (FP) PO SCH (21:09)
[2018-12-07] MEDS: THIAMINE HCL 100 MG TABLET (FP) PO SCH (21:09)
[2018-12-08] MEDS: amLODIPine BESYLATE 10 MG TABLET (FP) PO SCH (09:52)
[2018-12-08] MEDS: CITALOPRAM HYDROBROMIDE 20 MG TABLET (FP) PO SCH (09:52)
[2018-12-08] MEDS: PRENATAL VITAMINS W/ FOLIC ACID TABLET (FP) PO SCH (09:52)
[2018-12-08] MEDS: TOLNAFTATE 1% CREAM 15 GM TUBE TP SCH ×2 (09:53→21:08)
[2018-12-08] MEDS: NICOTINE 21 MG/24 HOURS TOPICAL PATCH TD SCH (09:54)
[2018-12-08] MEDS: HYDROCORTISONE 1% TOPICAL CREAM 30 GM TUBE TP SCH ×2 (09:54→21:09)
[2018-12-08] MEDS: TACROLIMUS 30 GM TP SCH ×2 (09:54→21:08)
[2018-12-08] MEDS: THIAMINE HCL 100 MG TABLET (FP) PO SCH (21:07)
[2018-12-08] MEDS: traZODone HCL 50 MG TABLET (FP) PO SCH (21:07)
[2018-12-08] MEDS: ALBUTEROL SO4 8 GM HFA INHALER IH PRN (21:08)
[2018-12-09] MEDS: HYDROCORTISONE 1% TOPICAL CREAM 30 GM TUBE TP SCH ×2 (09:42→21:05)
[2018-12-09] MEDS: PRENATAL VITAMINS W/ FOLIC ACID TABLET (FP) PO SCH (09:42)
[2018-12-09] MEDS: CITALOPRAM HYDROBROMIDE 20 MG TABLET (FP) PO SCH (09:42)
[2018-12-09] MEDS: amLODIPine BESYLATE 10 MG TABLET (FP) PO SCH (09:42)
[2018-12-09] MEDS: NICOTINE 21 MG/24 HOURS TOPICAL PATCH TD SCH (09:42)
[2018-12-09] MEDS: TOLNAFTATE 1% CREAM 15 GM TUBE TP SCH ×2 (09:43→21:05)
[2018-12-09] MEDS: TACROLIMUS 30 GM TP SCH ×2 (09:43→21:05)
[2018-12-09] MEDS: traZODone HCL 50 MG TABLET (FP) PO SCH (21:05)
[2018-12-09] MEDS: THIAMINE HCL 100 MG TABLET (FP) PO SCH (21:05)
[2018-12-10] MEDS: PRENATAL VITAMINS W/ FOLIC ACID TABLET (FP) PO SCH (09:46)
[2018-12-10] MEDS: amLODIPine BESYLATE 10 MG TABLET (FP) PO SCH (09:46)
[2018-12-10] MEDS: CITALOPRAM HYDROBROMIDE 20 MG TABLET (FP) PO SCH (09:47)
[2018-12-10] MEDS: NICOTINE 21 MG/24 HOURS TOPICAL PATCH TD SCH (09:47)
[2018-12-10] MEDS: TACROLIMUS 30 GM TP SCH ×2 (09:47→21:13)
[2018-12-10] MEDS: ALBUTEROL SO4 8 GM HFA INHALER IH PRN (09:47)
[2018-12-10] MEDS: HYDROCORTISONE 1% TOPICAL CREAM 30 GM TUBE TP SCH ×2 (10:16→21:13)
[2018-12-10] MEDS: TOLNAFTATE 1% CREAM 15 GM TUBE TP SCH ×2 (10:16→21:13)
[2018-12-10] MEDS: traZODone HCL 50 MG TABLET (FP) PO SCH (21:12)
[2018-12-10] MEDS: THIAMINE HCL 100 MG TABLET (FP) PO SCH (21:13)
[2018-12-10] MEDS: hydrOXYzine PAMOATE 50 MG CAPSULE (FP) PO PRN (21:14)
[2018-12-11] MEDS: PRENATAL VITAMINS W/ FOLIC ACID TABLET (FP) PO SCH (09:38)
[2018-12-11] MEDS: amLODIPine BESYLATE 10 MG TABLET (FP) PO SCH (09:38)
[2018-12-11] MEDS: CITALOPRAM HYDROBROMIDE 20 MG TABLET (FP) PO SCH (09:38)
[2018-12-11] MEDS: NICOTINE 21 MG/24 HOURS TOPICAL PATCH TD SCH (09:39)
[2018-12-11] MEDS: TACROLIMUS 30 GM TP SCH ×2 (10:54→21:08)
[2018-12-11] MEDS: HYDROCORTISONE 1% TOPICAL CREAM 30 GM TUBE TP SCH ×2 (10:54→21:08)
[2018-12-11] MEDS: TOLNAFTATE 1% CREAM 15 GM TUBE TP SCH ×2 (10:55→21:08)
[2018-12-11] MEDS: ALBUTEROL SO4 8 GM HFA INHALER IH PRN (21:07)
[2018-12-11] MEDS: traZODone HCL 50 MG TABLET (FP) PO SCH (21:07)
[2018-12-11] MEDS: THIAMINE HCL 100 MG TABLET (FP) PO SCH (21:07)
[2018-12-11] MEDS: hydrOXYzine PAMOATE 50 MG CAPSULE (FP) PO PRN (21:08)
[2018-12-12] MEDS ORDERED: PT OWN MED DRAWER 7, Y5N ONE (08:56)
[2018-12-12] MEDS: PRENATAL VITAMINS W/ FOLIC ACID TABLET (FP) PO SCH (09:32)
[2018-12-12] MEDS: amLODIPine BESYLATE 10 MG TABLET (FP) PO SCH (09:32)
[2018-12-12] MEDS: TOLNAFTATE 1% CREAM 15 GM TUBE TP SCH ×2 (09:32→21:06)
[2018-12-12] MEDS: HYDROCORTISONE 1% TOPICAL CREAM 30 GM TUBE TP SCH ×2 (09:34→21:06)
[2018-12-12] MEDS: TACROLIMUS 30 GM TP SCH ×2 (09:34→21:06)
[2018-12-12] MEDS: CITALOPRAM HYDROBROMIDE 20 MG TABLET (FP) PO SCH (09:34)
[2018-12-12] MEDS: NICOTINE 21 MG/24 HOURS TOPICAL PATCH TD SCH (09:34)
[2018-12-12] MEDS: hydrOXYzine PAMOATE 50 MG CAPSULE (FP) PO PRN (21:06)
[2018-12-12] MEDS: traZODone HCL 50 MG TABLET (FP) PO SCH (21:06)
[2018-12-12] MEDS: THIAMINE HCL 100 MG TABLET (FP) PO SCH (21:06)
[2018-12-13] MEDS: PRENATAL VITAMINS W/ FOLIC ACID TABLET (FP) PO SCH (09:49)
[2018-12-13] MEDS: amLODIPine BESYLATE 10 MG TABLET (FP) PO SCH (09:49)
[2018-12-13] MEDS: NICOTINE 21 MG/24 HOURS TOPICAL PATCH TD SCH (09:49)
[2018-12-13] MEDS: CITALOPRAM HYDROBROMIDE 20 MG TABLET (FP) PO SCH (09:49)
[2018-12-13] MEDS: TOLNAFTATE 1% CREAM 15 GM TUBE TP SCH ×2 (09:50→21:10)
[2018-12-13] MEDS: TACROLIMUS 30 GM TP SCH ×2 (09:52→21:10)
[2018-12-13] MEDS: HYDROCORTISONE 1% TOPICAL CREAM 30 GM TUBE TP SCH ×2 (09:52→21:10)
[2018-12-13] MEDS: COLLOIDAL OATMEAL 1 BAR EACH TP PRN (12:33)
[2018-12-13] MEDS: THIAMINE HCL 100 MG TABLET (FP) PO SCH (21:09)
[2018-12-13] MEDS: traZODone HCL 50 MG TABLET (FP) PO SCH (21:09)
[2018-12-13] MEDS: hydrOXYzine PAMOATE 50 MG CAPSULE (FP) PO PRN (21:11)
[2018-12-14] MEDS: CITALOPRAM HYDROBROMIDE 20 MG TABLET (FP) PO SCH (09:35)
[2018-12-14] MEDS: amLODIPine BESYLATE 10 MG TABLET (FP) PO SCH (09:35)
[2018-12-14] MEDS: PRENATAL VITAMINS W/ FOLIC ACID TABLET (FP) PO SCH (09:35)
[2018-12-14] MEDS: NICOTINE 21 MG/24 HOURS TOPICAL PATCH TD SCH (09:36)
[2018-12-14] MEDS: HYDROCORTISONE 1% TOPICAL CREAM 30 GM TUBE TP SCH ×2 (09:36→21:05)
[2018-12-14] MEDS: TACROLIMUS 30 GM TP SCH ×2 (09:36→21:05)
[2018-12-14] MEDS: TOLNAFTATE 1% CREAM 15 GM TUBE TP SCH ×2 (09:56→21:05)
[2018-12-14] MEDS: traZODone HCL 50 MG TABLET (FP) PO SCH (21:04)
[2018-12-14] MEDS: THIAMINE HCL 100 MG TABLET (FP) PO SCH (21:04)
[2018-12-14] MEDS: hydrOXYzine PAMOATE 50 MG CAPSULE (FP) PO PRN (21:05)
[2018-12-15 07:50] VITALS: TEMP 97.8
[2018-12-15] MEDS: PRENATAL VITAMINS W/ FOLIC ACID TABLET (FP) PO SCH (09:28)
[2018-12-15] MEDS: TOLNAFTATE 1% CREAM 15 GM TUBE TP SCH ×2 (09:29→21:11)
[2018-12-15] MEDS: amLODIPine BESYLATE 10 MG TABLET (FP) PO SCH (09:29)
[2018-12-15] MEDS: CITALOPRAM HYDROBROMIDE 20 MG TABLET (FP) PO SCH (09:29)
[2018-12-15] MEDS: TACROLIMUS 30 GM TP SCH ×2 (09:30→21:11)
[2018-12-15] MEDS: NICOTINE 21 MG/24 HOURS TOPICAL PATCH TD SCH (09:30)
[2018-12-15] MEDS: HYDROCORTISONE 1% TOPICAL CREAM 30 GM TUBE TP SCH ×2 (09:30→21:11)
[2018-12-15] MEDS: hydrOXYzine PAMOATE 50 MG CAPSULE (FP) PO PRN (21:11)
[2018-12-15] MEDS: traZODone HCL 50 MG TABLET (FP) PO SCH (21:11)
[2018-12-15] MEDS: THIAMINE HCL 100 MG TABLET (FP) PO SCH (21:11)
[2018-12-16 06:59] VITALS: BP 130/89; PULSE 81
[2018-12-16] MEDS: ALBUTEROL SO4 8 GM HFA INHALER IH PRN (08:38)
[2018-12-16] MEDS: CITALOPRAM HYDROBROMIDE 20 MG TABLET (FP) PO SCH (10:04)
[2018-12-16] MEDS: PRENATAL VITAMINS W/ FOLIC ACID TABLET (FP) PO SCH (10:04)
[2018-12-16] MEDS: HYDROCORTISONE 1% TOPICAL CREAM 30 GM TUBE TP SCH (10:04)
[2018-12-16] MEDS: TOLNAFTATE 1% CREAM 15 GM TUBE TP SCH (10:04)
[2018-12-16] MEDS: TACROLIMUS 30 GM TP SCH (10:04)
[2018-12-16] MEDS: amLODIPine BESYLATE 10 MG TABLET (FP) PO SCH (10:04)
[2018-12-16] MEDS: NICOTINE 21 MG/24 HOURS TOPICAL PATCH TD SCH (10:04)
--- NOTE | 2018-12-16 10:05 | PN ---
[facility] Progress Note Note: Psychiatric nurse practitioner note: Patient able to complete rehab. Patient will be discharged today. A 30 day prescription of Celexa 20mg + trazodone 150mg HS will be electronically sent to [facility], [address] [place] [address].
--- NOTE | 2018-12-16 10:34 | PN ---
S Progress Note Note: PT COMPLETED REHAB AND DISCHARGED TODAY. PT WAS REFERRED TO [facility] ON [address], [place]. PT REPORTS HE HAS NO PCP BUT UTILIZES ERs FOR MEDICAL NEEDS AND GOES TO WHEN NEEDED. COURTESY RX FOR NORVASC 10 MG PO DAILY #30 ELECTRONICALLY SENT TO PT'S PHARMACY [facility]PER[facility]. ALERT O X 3. PT DENIES S/H/I. Home Medications Medication Instructions Recorded Albuterol Sulfate Inhaler - 2 inh PO Q4H PRN #1 inhaler 05/10/18 [Ventolin HFA Inhaler -] Citalopram Hydrobromide 40 mg PO HS 12/03/18 [Citalopram HBr] Hydrocortisone 1% Cream [Hytone 1% 1 applic TP BID 12/03/18 Cream -] Tacrolimus 30 gm TP BID 12/03/18 traZODone HCL [Trazodone HCl] 150 mg PO HS 12/03/18 Amlodipine Besylate [Norvasc -] 10 mg PO DAILY #30 tablet 12/16/18 Citalopram Hydrobromide [Celexa -] 20 mg PO DAILY #30 tablet 12/16/18 traZODone HCL [Desyrel -] 150 mg PO HS #30 tablet 12/16/18 Vital Signs (72 hours) 12/14/18 12/14/18 12/14/18 00:30 03:30 06:55 Temperature 97.4 F L Pulse Rate 79 Respiratory 18 18 19 Rate Blood Pressure 149/87 12/14/18 12/15/18 12/15/18 10:00 00:30 03:30 Temperature Pulse Rate 94 H Respiratory 18 18 Rate Blood Pressure 144/83 12/15/18 12/15/18 12/16/18 07:49 10:00 06:58 Temperature 97.8 F 97.8 F Pulse Rate 74 89 81 Respiratory 18 18 Rate Blood Pressure 127/78 117/60 130/89 Laboratory Tests 12/04/18 12/04/18 12/04/18 05:35 05:35 05:35 WBC 9.5 RBC 4.73 Hgb 14.6 Hct 42.5 MCV 89.7 MCH 30.8 MCHC 34.3 RDW 13.8 Plt Count 301 D MPV 8.1 Sodium 136 Potassium 4.4 Chloride 104 Carbon Dioxide 25 Anion Gap 7 L BUN 20 H Creatinine 1.1 Creat Clearance w eGFR > 60 Random Glucose 79 Calcium 8.9 Total Bilirubin 0.2 AST 28 ALT 21 Alkaline Phosphatase 116 Total Protein 7.7 Albumin 3.9 Urine Color Urine Appearance Urine pH Ur Specific [place] Urine Protein Urine Glucose (UA) Urine Ketones Urine Blood Urine Nitrite Urine Bilirubin Urine Urobilinogen Ur Leukocyte Esterase RPR Titer HIV 1&2 Antibody Screen Negative HIV P24 Antigen Negative 12/04/18 12/05/18 05:35 08:50 WBC RBC Hgb Hct MCV MCH MCHC RDW Plt Count MPV Sodium Potassium Chloride Carbon Dioxide Anion Gap BUN Creatinine Creat Clearance w eGFR Random Glucose Calcium Total Bilirubin AST ALT Alkaline Phosphatase Total Protein Albumin Urine Color Ltyellow Urine Appearance Clear Urine pH 7.0 Ur Specific [place] 1.023 Urine Protein Negative Urine Glucose (UA) Negative Urine Ketones Negative Urine Blood Negative Urine Nitrite Negative Urine Bilirubin Negative Urine Urobilinogen Negative Ur Leukocyte Esterase Negative RPR Titer Nonreactive HIV 1&2 Antibody Screen HIV P24 Antigen NAD MEDICALLY STABLE PLAN:FOLLOW UP WITH CD AFTERCARE RECOMMENDATION ABOVE ON 12/17/18 @11:00 A.M DISCUSSED WITH PATIENT TO FOLLOW UP WITH PRIMARY CARE AT [facility] WITHIN 1-2 WEEKS AFTER DISCHARGE
== END 2018-12-16 08:50 | disposition home or self-care (01) | DRG 895 ==
LOC: YASAS 11:06 → Y5N 15:11
PROVIDERS: ADMIT Neuromusculoskeletal Medicine & OMM; ATTEND Neuromusculoskeletal Medicine & OMM
PROC: HZ42ZZZ Group Counseling for Substance Abuse Treatment, Cognitive-Behavioral (ICD-10-PCS; principal; 2018-12-03)
DX: F10.20 Alcohol dependence, uncomplicated (principal); F14.20 Cocaine dependence, uncomplicated; F33.1 Major depressive disorder, recurrent, moderate; F17.210 Nicotine dependence, cigarettes, uncomplicated; I10 Essential (primary) hypertension; J45.909 Unspecified asthma, uncomplicated; L85.3 Xerosis cutis; B35.9 Dermatophytosis, unspecified; Z88.0 Allergy status to penicillin
CPT/HCPCS: 36415; 80053; 81003; 85027; 86593; 87389

== ENCOUNTER 2019-09-01 15:35 | Inpatient (IN) | payer OTHER ==
[2019-09-01 17:18] VITALS: BMI 31.4
--- NOTE | 2019-09-01 19:34 | HP ---
CIWA Score Nausea/Vomitin-No Nausea/No Vomiting Muscle Tremors: None Anxiety: 1-Mildly Anxious Agitation: 0-Normal Activity Paroxysmal Sweats: No Perspiration Orientation: 0-Oriented Tacttile Disturbances: 0-None Auditory Disturbances: 0-None Visual Disturbances: 0-None Headache: 0-None Present CIWA-Ar Total Score: 1 - Admission Criteria OASAS Guidelines: Admission for Medically Managed Detox: Requires at least one of the followin. CIWA greater than 12 2. Seizures within the past 24 hours 3. Delirium tremens within the past 24 hours 4. Hallucinations within the past 24 hours 5. Acute intervention needed for co occurring medical disorder 6. Acute intervention needed for co occurring psychiatric disorder 7. Severe withdrawal that cannot be handled at a lower level of care (continued vomiting, continued diarrhea, abnormal vital signs) requiring intravenous medication and/or fluids 8. Admitting History and Physical - Smoking History Smoking history: Former smoker Have you smoked in the past 12 months: Yes Aproximately how many cigarettes per day: 10 If you are a former smoker, when did you quit?: 09/2018 - Alcohol/Substance Use Hx Alcohol Use: Yes Admission [facility] Allergies/Adverse Reactions: Allergies Allergy/AdvReac Type Severity Reaction Status Date / Time Penicillins Allergy Unknown UNKNOWN Verified 09/01/19 17:05 History of Present Illness: pt here requesting rehab from etoh use, reports 1 pint/day since age 21 intermittently , daily since 1 yr ago , denies blackouts, tremors or seizures " I dn't get sick " , latest use 2 weeks ago, claims he was referred by [facility]. cocaine : 100 $/day , latest ued 2 weeks ago pmhx : htn , asthma , depression , denies SI / HI quit tobacco 1 mo ago Exam Limitations: No Limitations - Ebola screening Have you traveled outside of the country in the last 21 days: No Have you had contact with anyone from an Ebola affected area: No - Review of Systems Constitutional: No Symptoms Reported EENT: reports: Other (reading glasses) Respiratory: reports: No Symptoms reported Cardiac: reports: No Symptoms Reported GI: reports: No Symptoms Reported : reports: No Symptoms Reported Musculoskeletal: reports: No Symptoms Reported Integumentary: reports: Other (reports h/o chronic eczema on arms , back) Neuro: reports: No Symptoms reported Endocrine: reports: No Symptoms Reported Psychiatric: reports: Orientated x3 Patient History - Patient Medical History Hx Anemia: No Hx Asthma: Yes Hx Chronic Obstructive Pulmonary Disease (COPD): No Hx Cancer: No Hx Cardiac Disorders: No Hx Congestive Heart Failure: No Hx Hypertension: Yes Hx Hypercholesterolemia: No Hx Pacemaker: No HX Cerebrovascular Accident: No Hx Seizures: No Hx Dementia: No Hx Diabetes: No Hx Gastrointestinal Disorders: No Hx Liver Disease: No Hx Genitourinary Disorders: No Hx Sexually Transmitted Disorders: No Hx Renal Disease (ESRD): No Hx Thyroid Disease: No Hx Human Immunodeficiency Virus (HIV): No (NEGATIVE HX; Last Tested: Winter 2016 ) Hx Hepatitis C: No (NEGATIVE HX.) Hx Depression: Yes Hx Suicide Attempt: No (pt denies) Hx Bipolar Disorder: No Hx Schizophrenia: No - Patient Surgical History Past Surgical History: No Hx Neurologic Surgery: No Hx Cataract Extraction: No Hx Cardiac Surgery: No Hx Lung Surgery: No Hx Breast Surgery: No Hx Breast Biopsy: No Hx Abdominal Surgery: No Hx Appendectomy: No Hx Cholecystectomy: No Hx Genitourinary Surgery: No Hx Section: No Hx Orthopedic Surgery: No Anesthesia Reaction: No - PPD History Date: 05/20/18 Results: 0 mm - Smoking Cessation Smoking history: Former smoker Have you smoked in the past 12 months: Yes Aproximately how many cigarettes per day: 10 If you are a former smoker, when did you quit?: 09/2018 Cigars Per Day: 0 Hx Chewing Tobacco Use: No Initiated information on smoking cessation: No - Substances abused Alcohol Substance route: Oral Frequency: Daily Amount used: 1 pint of vodka Age of first use: 21 Date of last use: 08/18/19 Cocaine Substance route: Smoking Frequency: 3-6 times per week Amount used: $100/day Age of first use: 34 Date of last use: 08/18/19 Admission Physical Exam [facility] - Vital Signs Vital Signs: Vital Signs - 24 hr 09/01/19 17:15 Temperature 97.9 F Pulse Rate 69 Respiratory 16 Rate Blood Pressure 122/71 - Physical General Appearance: Yes: No Apparent Distress HEENTM: Yes: EOMI, Hearing grossly Normal, Normocephalic, Normal Voice Respiratory: Yes: Chest Non-Tender, Lungs Clear, Normal Breath Sounds, No Respiratory Distress Neck: Yes: No masses,lesions,Nodules, Trachea in good position Cardiology: Yes: Regular Rhythm, Regular Rate, S1, S2 Abdominal: Yes: Non Tender, Soft Musculoskeletal: Yes: Gait Steady Extremities: Yes: Normal Range of Motion, Non-Tender Neurological: Yes: Fully Oriented, Alert, Motor Strength 5/5 Integumentary: Yes: Dry, Warm - Diagnostic (1) Alcohol dependence in remission Current Visit: Yes Status: Chronic (2) Cocaine dependence Current Visit: Yes Status: Chronic Qualifiers: Substance use status: in remission Qualified Code(s): F14.21 - Cocaine dependence, in remission Breathalyzer - Breathalyzer Breathalyzer: 0 Urine Drug Screen - Test Device Lot number: [id number] Expiration date: 05/11/21 - Control Is test valid?: Yes - Results Drug screen NEGATIVE: Yes Inpatient Rehab Admission - Rehab Decision to Admit Inpatient rehab admission?: Yes - Initial Determination Are CD services needed?: Yes Free of communicable disease: Yes Not in need of hospitalization: No - Rehab Admission Criteria Previous failed treatment: No Poor recovery environment: Yes Comorbidities: No Lacks judgement: Yes Patient is meeting Inpatient Rehab admission criteria:: Yes
[2019-09-01] MEDS ORDERED: MAGNESIUM HYDROX 2400MG/30ML ORAL SUSPENSION 30 ML CUP PO PRN (19:35)
[2019-09-01] MEDS ORDERED: guaiFENesin 200 MG/10 ML 10 ML UNIT-DOSE CUPS PO PRN (19:35)
[2019-09-01] MEDS ORDERED: hydrOXYzine PAMOATE 25 MG CAPSULE (FP) PO PRN (19:35)
[2019-09-01] MEDS ORDERED: LOPERAMIDE HCL 2 MG CAPSULE PO PRN (19:35)
[2019-09-01] MEDS ORDERED: P-EPHED 60MG/TRIPROLIDI 2.5MG TABLET PO PRN (19:35)
[2019-09-01] MEDS ORDERED: IBUPROFEN 400 MG TABLET (FP) PO PRN (19:35)
[2019-09-01] MEDS ORDERED: MAGNESIUM CITRATE 300 ML BOTTLE PO PRN (19:35)
[2019-09-01] MEDS ORDERED: MENTHOL/PHENOL 1 EACH UD MM PRN (19:35)
[2019-09-01] MEDS ORDERED: MAG HYDROX/AL HYDROX/SIMETH 30 ML UNIT-DOSE CUP PO PRN (19:35)
[2019-09-01] MEDS ORDERED: ACETAMINOPHEN 325 MG TABLET (FP) PO PRN (19:35)
[2019-09-01] MEDS: FLUOCINONIDE 0.05% TOP OINT (60 GM TUBE) TP SCH (21:39)
[2019-09-01] MEDS: THIAMINE HCL 100 MG TABLET (FP) PO SCH (21:39)
[2019-09-01] MEDS: ALBUTEROL SO4 8 GM HFA INHALER IH PRN (21:40)
[2019-09-01] MEDS: MELATONIN 5 MG TABLETS PO PRN (21:40)
--- NOTE | 2019-09-02 09:55 | CONSULT ---
[facility] Psychiatric Consult - Data Date of interview: 09/01/19 Admission source: [facility] Identifying data: Patient is a 58 year old single male, father of two, unemployed, homeless, and is supported by [facility]. This is one of multiple admissions for patient. Patient admitted to for cocaine dependence. Substance Abuse History: Smoking Cessation. Smoking history: Former smoker. Have you smoked in the past 12 months: Yes. Aproximately how many cigarettes per day: 10. If you are a former smoker, when did you quit?: 09/2018. Cigars Per Day: 0. Hx Chewing Tobacco Use: No. Initiated information on smoking cessation: No. - Substances abused. Alcohol. Substance route: Oral. Frequency: Daily. Amount used: 1 pint of vodka. Age of first use: 21. Date of last use: 08/18/19. Cocaine. Substance route: Smoking. Frequency: 3-6 times per week. Amount used: $100/day. Age of first use: 34. Date of last use : 08/18/19 Medical History: Asthma, hypertension. Psychiatric History: Patient's first psychiatric contact was in 1994 after his mother and he became severely depressed. He was admitted to [facility], diagnosed with MDD, and prescribed psychotropic medications. Mr. Song reports additional hospitalizations at [facility], [facility] (previous notes also mention [facility]) and most recently at [facility] from February 2019-May 2019 for depression and was treated with Prozac 20mg + Risperdal 2mg. Mr. Song is currently receiving outpatient psychiatric care at [facility] in [place], [place]. Patient denies history of suicide attempt. Physical/Sexual Abuse/Trauma History: denies. Mental Status Exam - Mental Status Exam Alert and Oriented to: Time, Place, Person Cognitive Function: Good Patient Appearance: Unkempt Mood: Withdrawn Affect: Mood Congruent Patient Behavior: Appropriate, Cooperative Speech Pattern: Clear Voice Loudness: Normal Thought Process: Goal Oriented Thought Disorder: Not Present Hallucinations: Denies Suicidal Ideation: Denies Homicidal Ideation: Denies Insight/Judgement: Poor Sleep: Fair Appetite: Fair Muscle strength/Tone: Normal Gait/Station: Normal Psychiatric Findings - Problem List ([place] 1, 2,3) (1) Cocaine dependence Current Visit: Yes Status: Chronic Qualifiers: Substance use status: in remission Qualified Code(s): F14.21 - Cocaine dependence, in remission (2) Alcohol dependence Current Visit: Yes Status: Chronic (3) Substance induced mood disorder Current Visit: Yes Status: Acute (4) Mood disorder Current Visit: Yes Status: Chronic - Initial Treatment Plan Initial Treatment Plan: Psychoeducation provided. Rehab in progress Will resume Prozac 20mg HS + Risperdal 2mg HS. Benefits and side effects discussed. Verbal consent given.
[2019-09-02] MEDS: PRENATAL VITAMINS W/ FOLIC ACID TABLET (FP) PO SCH (10:06)
[2019-09-02] MEDS: amLODIPine BESYLATE 10 MG TABLET (FP) PO SCH (10:06)
[2019-09-02] MEDS: FLUOCINONIDE 0.05% TOP OINT (60 GM TUBE) TP SCH ×2 (10:37→21:28)
--- NOTE | 2019-09-02 10:52 | PN ---
[facility] Progress Note Note: Pt is a 58 y/o male admitted to rehab on 09/01/19 with a hx of alcohol and cocaine use disorder. PMhx of asthma(on inh), HTN(on amlodipine) and Eczema(HCT ); PsychHx of Depression(on meds). Pt reports he has primary care at [facility] [place] on [facility] [address] [place] [address]. C/o skin generalized itch but especially arms and back due to eczema. Vital Signs - 24 hr 09/01/19 09/02/19 09/02/19 17:15 00:30 03:30 Temperature 97.9 F Pulse Rate 69 Respiratory 16 18 18 Rate Blood Pressure 122/71 09/02/19 07:03 Temperature 97.4 F L Pulse Rate 62 Respiratory 18 Rate Blood Pressure 117/82 Labs pending Alert o x 3 nad oob ambulating with steady gait. Skin:dry white patches of scaly lesions on face, arms. A/P Aveeno soap as directed Maintain safety Pt seen by psych consult this morning. Increase po fluids as tolerated.
[2019-09-02] MEDS ORDERED: COLLOIDAL OATMEAL 1 BAR EACH TP PRN (11:08)
[2019-09-02 12:32] LABS: HEMATOCRIT 39.8 % (35.4-49); HEMOGLOBIN 13.5 GM/dL (11.7-16.9); MCH 30.4 pg (25.7-33.7); MCHC 33.9 g/dl (32.0-35.9); MEAN CELL VOLUME 89.5 fl (80-96); MEAN PLT VOLUME 8.2 fl (7.5-11.1); PLATELET COUNT 253 K/MM3 (134-434); RBC 4.44 M/mm3 (4.00-5.60); RDW 12.6 % (11.9-15.9); WHITE BLOOD COUNT 6.3 K/mm3 (4.0-10.0)
[2019-09-02 12:51] LABS: ALBUMIN 3.5 g/dl (3.4-5.0); BILIRUBIN,TOTAL 0.1 mg/dL (0.2-1); BLOOD UREA NITROGEN 11.4 mg/dL (7-18); CALCIUM 8.9 mg/dL (8.5-10.1); POTASSIUM 4.2 mmol/L (3.5-5.1); TOT PROT 6.6 g/dl (6.4-8.2)
[2019-09-02] MEDS: ALBUTEROL SO4 8 GM HFA INHALER IH PRN ×2 (14:49→21:28)
[2019-09-02 18:59] LABS: PH,URINE 5.5 (5.0-8.0); URINE APPEARANCE TURBID; URINE BILIRUBIN NEGATIVE (NEGATIVE); URINE COLOR YELLOW; URINE GLUCOSE (UA) NEGATIVE (NEGATIVE); URINE KETONE NEGATIVE (NEGATIVE); URINE LEUK ESTERASE NEGATIVE (NEGATIVE); URINE NITRITE NEGATIVE (NEGATIVE); URINE PROTEIN NEGATIVE (NEGATIVE); URINE UROBILINOGEN 0.2 mg/dL (0.2-1.0)
[2019-09-02] MEDS: FLUoxetine HCL 20 MG CAPSULE (FP) PO SCH (21:27)
[2019-09-02] MEDS: risperiDONE 2 MG TABLET PO SCH (21:27)
[2019-09-02] MEDS: MELATONIN 5 MG TABLETS PO PRN (21:28)
[2019-09-02] MEDS: THIAMINE HCL 100 MG TABLET (FP) PO SCH (21:28)
[2019-09-03] MEDS: ALBUTEROL SO4 8 GM HFA INHALER IH PRN ×2 (07:04→18:32)
[2019-09-03] MEDS: amLODIPine BESYLATE 10 MG TABLET (FP) PO SCH (10:03)
[2019-09-03] MEDS: PRENATAL VITAMINS W/ FOLIC ACID TABLET (FP) PO SCH (10:03)
[2019-09-03] MEDS: FLUOCINONIDE 0.05% TOP OINT (60 GM TUBE) TP SCH ×2 (10:04→21:23)
[2019-09-03] MEDS: THIAMINE HCL 100 MG TABLET (FP) PO SCH (21:23)
[2019-09-03] MEDS: MELATONIN 5 MG TABLETS PO PRN (21:23)
[2019-09-03] MEDS: risperiDONE 2 MG TABLET PO SCH (21:24)
[2019-09-03] MEDS: FLUoxetine HCL 20 MG CAPSULE (FP) PO SCH (21:24)
[2019-09-04] MEDS: PRENATAL VITAMINS W/ FOLIC ACID TABLET (FP) PO SCH (10:20)
[2019-09-04] MEDS: FLUOCINONIDE 0.05% TOP OINT (60 GM TUBE) TP SCH ×2 (10:20→21:27)
[2019-09-04] MEDS: amLODIPine BESYLATE 10 MG TABLET (FP) PO SCH (10:20)
[2019-09-04] MEDS: risperiDONE 2 MG TABLET PO SCH (21:28)
[2019-09-04] MEDS: FLUoxetine HCL 20 MG CAPSULE (FP) PO SCH (21:28)
[2019-09-04] MEDS: ALBUTEROL SO4 8 GM HFA INHALER IH PRN (21:29)
[2019-09-04] MEDS: THIAMINE HCL 100 MG TABLET (FP) PO SCH (21:29)
[2019-09-04] MEDS: MELATONIN 5 MG TABLETS PO PRN (21:29)
[2019-09-05 07:22] VITALS: BP 115/72; PULSE 67; TEMP 97.4
[2019-09-05] MEDS: ALBUTEROL SO4 8 GM HFA INHALER IH PRN (09:14)
--- NOTE | 2019-09-05 09:22 | DS ---
[facility] Rehab Discharge Summary - [facility] Rehab Discharge Summary Admission Date: 09/01/19 Discharge Date: 09/07/19 - History Present History: Alcohol dependence, Cocaine dependence Additional Comments: Pt is a 58 y/o male admitted to rehab on 09/01/19 with a hx of alcohol and cocaine use disorder. PMhx of asthma(on inh), HTN(on amlodipine) and Eczema(HCT ); PsychHx of Depression(on meds). Pt reports he has primary care at [facility] on [facility] [address] [place] [address]. Pt referred to [facility] program for aftercare. Pertinent Past History: Asthma Eczema HTN Mood Disorder - Discharge Physical Exam Vital Signs: Vital Signs Temperature 97.4 F L 09/05/19 07:22 Pulse Rate 67 09/05/19 07:22 Respiratory Rate 18 09/05/19 07:22 Blood Pressure 115/72 09/05/19 07:22 O2 Sat by Pulse Oximetry (%) Alert o x 3,denies s/h/i nad oob ambulating with steady gait cardiac:s1 s2, rrr lungs:cta,suzanna abdomen:+bs,soft,nt,nd extremities/skin:no edema,full ROM;skin intact Pertinent Admission Physical Exam Findings: Laboratory Tests 09/02/19 09/02/19 09/02/19 09:00 09:00 09:00 WBC 6.3 RBC 4.44 Hgb 13.5 Hct 39.8 MCV 89.5 MCH 30.4 MCHC 33.9 RDW 12.6 Plt Count 253 MPV 8.2 Sodium 142 Potassium 4.2 Chloride 110 H Carbon Dioxide 28 Anion Gap 4 L BUN 11.4 Creatinine 1.0 Est GFR (CKD-EPI)AfAm 97.08 Est GFR (CKD-EPI)NonAf 83.76 Random Glucose 91 Calcium 8.9 Total Bilirubin 0.1 L AST 20 ALT 18 Alkaline Phosphatase 97 Total Protein 6.6 Albumin 3.5 Urine Color Urine Appearance Urine pH Ur Specific Harned Urine Protein Urine Glucose (UA) Urine Ketones Urine Blood Urine Nitrite Urine Bilirubin Urine Urobilinogen Ur Leukocyte Esterase RPR Titer Nonreactive 09/02/19 13:17 WBC RBC Hgb Hct MCV MCH MCHC RDW Plt Count MPV Sodium Potassium Chloride Carbon Dioxide Anion Gap BUN Creatinine Est GFR (CKD-EPI)AfAm Est GFR (CKD-EPI)NonAf Random Glucose Calcium Total Bilirubin AST ALT Alkaline Phosphatase Total Protein Albumin Urine Color Yellow Urine Appearance Turbid Urine pH 5.5 D Ur Specific Harned 1.027 Urine Protein Negative Urine Glucose (UA) Negative Urine Ketones Negative Urine Blood Negative Urine Nitrite Negative Urine Bilirubin Negative Urine Urobilinogen 0.2 Ur Leukocyte Esterase Negative RPR Titer - Treatment Discharge Condition: Discharge condition good Hospital Course: Rehabilitated safely and responded well [facility] aftercare referral accepted - Medication Discharge Medications: Ambulatory Orders Albuterol Sulfate Inhaler - [Ventolin HFA Inhaler -] 2 inh PO Q4H PRN #1 inhaler 05/10/18 Amlodipine Besylate [Norvasc -] 10 mg PO DAILY 09/01/19 Fluocinonide 0.05% Oin [Lidex 0.05% Ointment -] 1 applic TP BID 09/01/19 Fluoxetine HCl [Prozac] 20 mg PO DAILY 09/01/19 Risperidone [Risperdal] 2 mg PO HS 09/01/19 - Medication-Assisted Treatment (MAT) Medication-Assisted Treatment (MAT): No - Discharge Instructions Diet, activity, other medical instructions: Diet:RIDDHI Activity: oob ad jose Other medical instructions:follow up with primary care provider at [facility] clinic 1-2 weeks after discharge. follow up with [facility] aftercare as recommended and scheduled. - Diagnosis (1) Alcohol dependence Status: Chronic Qualifiers: Substance use status: uncomplicated Qualified Code(s): F10.20 - Alcohol dependence, uncomplicated (2) Cocaine dependence Status: Chronic Qualifiers: Substance use status: uncomplicated Qualified Code(s): F14.20 - Cocaine dependence, uncomplicated (3) Dry skin dermatitis Status: Chronic (4) Essential hypertension Status: Chronic (5) Nicotine dependence Status: Chronic Qualifiers: Nicotine product type: cigarettes Substance use status: uncomplicated Qualified Code(s): F17.210 - Nicotine dependence, cigarettes, uncomplicated - AMA Did Patient Leave Against Medical Advice: No Additional Comments: Pt reports he brought his medications with him and in his secured property. Pt will follow up with his primary care provider for further medical management.
[2019-09-05] MEDS: PRENATAL VITAMINS W/ FOLIC ACID TABLET (FP) PO SCH (09:39)
[2019-09-05] MEDS: amLODIPine BESYLATE 10 MG TABLET (FP) PO SCH (09:39)
[2019-09-05] MEDS: FLUOCINONIDE 0.05% TOP OINT (60 GM TUBE) TP SCH (09:40)
== END 2019-09-05 10:45 | disposition home or self-care (01) | DRG 895 ==
LOC: YASAS 15:35 → Y5N 20:03
PROVIDERS: ADMIT Neuromusculoskeletal Medicine & OMM; ATTEND Neuromusculoskeletal Medicine & OMM
PROC: HZ42ZZZ Group Counseling for Substance Abuse Treatment, Cognitive-Behavioral (ICD-10-PCS; principal; 2019-09-01)
DX: F10.20 Alcohol dependence, uncomplicated (principal); F14.20 Cocaine dependence, uncomplicated; F19.24 Other psychoactive substance dependence with psychoactive substance-induced mood disorder; F39 Unspecified mood [affective] disorder; I10 Essential (primary) hypertension; J45.909 Unspecified asthma, uncomplicated; L85.3 Xerosis cutis; L30.9 Dermatitis, unspecified; Z87.891 Personal history of nicotine dependence; Z88.0 Allergy status to penicillin
CPT/HCPCS: 36415; 80053; 81003; 85027; 86593

== ENCOUNTER 2021-05-09 18:13 | Inpatient (IN) | payer OTHER ==
[2021-05-09 22:08] VITALS: BMI 30.3
[2021-05-09] MEDS ORDERED: NICOTINE 10 MG CARTRIDGE (INHALER) IH PRN (22:57)
[2021-05-09] MEDS ORDERED: P-EPHED 60MG/TRIPROLIDI 2.5MG TABLET PO PRN (22:57)
[2021-05-09] MEDS ORDERED: MAGNESIUM HYDROX 2400MG/30ML ORAL SUSPENSION 30 ML CUP PO PRN (22:57)
[2021-05-09] MEDS ORDERED: guaiFENesin 200 MG/10 ML 10 ML UNIT-DOSE CUPS PO PRN (22:57)
[2021-05-09] MEDS ORDERED: ACETAMINOPHEN 325 MG TABLET (FP) PO PRN (22:57)
[2021-05-09] MEDS ORDERED: LOPERAMIDE HCL 2 MG CAPSULE PO PRN (22:57)
[2021-05-09] MEDS ORDERED: MAG HYDROX/AL HYDROX/SIMETH 30 ML UNIT-DOSE CUP PO PRN (22:57)
[2021-05-09] MEDS ORDERED: IBUPROFEN 400 MG TABLET (FP) PO PRN (22:57)
[2021-05-09] MEDS ORDERED: MAGNESIUM CITRATE 300 ML BOTTLE PO PRN (22:57)
[2021-05-09] MEDS ORDERED: ALBUTEROL SO4 HFA INHALER IH SCH (23:45)
[2021-05-10] MEDS: MELATONIN 5 MG TABLETS PO SCH ×2 (00:55→01:24)
[2021-05-10] MEDS: hydrOXYzine PAMOATE 25 MG CAPSULE (FP) PO SCH ×5 (06:10→21:42)
[2021-05-10] MEDS: PRENATAL VITAMINS W/ FOLIC ACID TABLET (FP) PO SCH (09:46)
[2021-05-10] MEDS: NICOTINE 7 MG/24 HOURS TOPICAL PATCH TD SCH (09:48)
[2021-05-10] MEDS ORDERED: SELENIUM SULFIDE TP SCH (10:00)
[2021-05-10] MEDS ORDERED: COLLOIDAL OATMEAL 1 BAR EACH TP PRN (10:07)
[2021-05-10 10:09] LABS: HEMATOCRIT 44.4 % (35.4-49); HEMOGLOBIN 15.2 GM/dL (11.7-16.9); MCHC 34.2 g/dl (32.0-35.9); MEAN CELL VOLUME 90.9 fl (80-96); MEAN PLT VOLUME 8.1 fl (7.5-11.1); PLATELET COUNT 249 10^3/uL (134-434); RBC 4.88 M/mm3 (4.00-5.60); RDW 13.5 % (11.9-15.9); WHITE BLOOD COUNT 8.7 K/mm3 (4.0-10.0)
[2021-05-10 10:18] LABS: ALBUMIN 3.6 g/dl (3.4-5.0); BLOOD UREA NITROGEN 14.2 mg/dL (7-18)
[2021-05-10 10:21] LABS: BILIRUBIN,TOTAL 0.2 mg/dL (0.2-1); CREATININE 1.1 mg/dL (0.55-1.3); TOT PROT 7.6 g/dl (6.4-8.2)
[2021-05-10] MEDS: MINERAL OIL/PETROLAT/WATER TOPICAL CREAM 113 GM JAR TP SCH (10:58)
[2021-05-10] MEDS: VENLAFAXINE HCL 150 MG E.R. CAPSULE PO SCH (10:58)
[2021-05-10] MEDS: TRIAMCINOLONE ACET 0.1% OINT 15 GM TUBE TP SCH (10:58)
[2021-05-10] MEDS: SELENIUM SULFIDE 2.5% LOTION 4 OZ. TP SCH (14:42)
[2021-05-10] MEDS ORDERED: amLODIPine BESYLATE 10 MG TABLET (FP) PO ONE (14:43)
[2021-05-10] MEDS: THIAMINE HCL 100 MG TABLET (FP) PO SCH (21:42)
[2021-05-10] MEDS: QUEtiapine FUMARATE 100 MG TABLET (FP) PO SCH (21:42)
[2021-05-10] MEDS ORDERED: hydrOXYzine HCL 10 MG/5 ML LIQUID BULK BOTTLE PO SCH (22:00)
[2021-05-11] MEDS: hydrOXYzine PAMOATE 25 MG CAPSULE (FP) PO SCH ×5 (06:51→21:19)
[2021-05-11] MEDS: TRIAMCINOLONE ACET 0.1% OINT 15 GM TUBE TP SCH ×2 (10:10→21:20)
[2021-05-11] MEDS: NICOTINE 7 MG/24 HOURS TOPICAL PATCH TD SCH (10:10)
[2021-05-11] MEDS: PRENATAL VITAMINS W/ FOLIC ACID TABLET (FP) PO SCH (10:10)
[2021-05-11] MEDS: amLODIPine BESYLATE 10 MG TABLET (FP) PO SCH (10:10)
[2021-05-11] MEDS: SELENIUM SULFIDE 2.5% LOTION 4 OZ. TP SCH (10:10)
[2021-05-11] MEDS: MINERAL OIL/PETROLAT/WATER TOPICAL CREAM 113 GM JAR TP SCH (10:10)
[2021-05-11] MEDS: VENLAFAXINE HCL 150 MG E.R. CAPSULE PO SCH (10:10)
[2021-05-11 16:19] LABS: PH,URINE 6.5 (5.0-8.0); URINE APPEARANCE CLEAR; URINE BILIRUBIN NEGATIVE (NEGATIVE); URINE COLOR YELLOW; URINE GLUCOSE (UA) NEGATIVE (NEGATIVE); URINE KETONE TRACE (NEGATIVE); URINE LEUK ESTERASE NEGATIVE (NEGATIVE); URINE NITRITE NEGATIVE (NEGATIVE); URINE PROTEIN NEGATIVE (NEGATIVE); URINE UROBILINOGEN 0.2 mg/dL (0.2-1.0)
[2021-05-11] MEDS ORDERED: PT OWN MED DRAWER 7, Y5N ONE (16:44)
[2021-05-11] MEDS: QUEtiapine FUMARATE 100 MG TABLET (FP) PO SCH (21:19)
[2021-05-11] MEDS: THIAMINE HCL 100 MG TABLET (FP) PO SCH (21:19)
[2021-05-12] MEDS: hydrOXYzine PAMOATE 25 MG CAPSULE (FP) PO SCH ×5 (07:03→21:17)
[2021-05-12] MEDS: PRENATAL VITAMINS W/ FOLIC ACID TABLET (FP) PO SCH (09:48)
[2021-05-12] MEDS: amLODIPine BESYLATE 10 MG TABLET (FP) PO SCH (09:49)
[2021-05-12] MEDS: VENLAFAXINE HCL 150 MG E.R. CAPSULE PO SCH (09:49)
[2021-05-12] MEDS: SELENIUM SULFIDE 2.5% LOTION 4 OZ. TP SCH (09:50)
[2021-05-12] MEDS: MINERAL OIL/PETROLAT/WATER TOPICAL CREAM 113 GM JAR TP SCH (09:50)
[2021-05-12] MEDS: NICOTINE 7 MG/24 HOURS TOPICAL PATCH TD SCH (09:50)
[2021-05-12] MEDS: TRIAMCINOLONE ACET 0.1% OINT 15 GM TUBE TP SCH ×2 (09:50→21:18)
[2021-05-12] MEDS ORDERED: PT OWN MED DRAWER 7, Y5N ONE (20:20)
[2021-05-12] MEDS: THIAMINE HCL 100 MG TABLET (FP) PO SCH (21:17)
[2021-05-12] MEDS: QUEtiapine FUMARATE 100 MG TABLET (FP) PO SCH (21:17)
[2021-05-13] MEDS: hydrOXYzine PAMOATE 25 MG CAPSULE (FP) PO SCH ×2 (06:11→10:02)
[2021-05-13] MEDS: PRENATAL VITAMINS W/ FOLIC ACID TABLET (FP) PO SCH (09:58)
[2021-05-13] MEDS: ALBUTEROL SO4 HFA INHALER IH PRN (09:59)
[2021-05-13] MEDS: amLODIPine BESYLATE 10 MG TABLET (FP) PO SCH (10:00)
[2021-05-13] MEDS: MINERAL OIL/PETROLAT/WATER TOPICAL CREAM 113 GM JAR TP SCH (10:00)
[2021-05-13] MEDS: VENLAFAXINE HCL 150 MG E.R. CAPSULE PO SCH (10:00)
[2021-05-13] MEDS: TRIAMCINOLONE ACET 0.1% OINT 15 GM TUBE TP SCH ×2 (10:01→21:51)
[2021-05-13] MEDS: NICOTINE 7 MG/24 HOURS TOPICAL PATCH TD SCH (10:01)
[2021-05-13] MEDS: SELENIUM SULFIDE 2.5% LOTION 4 OZ. TP SCH (10:01)
[2021-05-13] MEDS: QUEtiapine FUMARATE 100 MG TABLET (FP) PO SCH (21:52)
[2021-05-13] MEDS: THIAMINE HCL 100 MG TABLET (FP) PO SCH (21:52)
[2021-05-13] MEDS: hydrOXYzine PAMOATE 25 MG CAPSULE (FP) PO PRN (21:53)
[2021-05-13] MEDS ORDERED: PT OWN MED DRAWER 7, Y5N ONE (22:26)
[2021-05-14] MEDS ORDERED: PT OWN MED DRAWER 7, Y5N ONE (08:41)
[2021-05-14] MEDS: NICOTINE 7 MG/24 HOURS TOPICAL PATCH TD SCH (09:45)
[2021-05-14] MEDS: PRENATAL VITAMINS W/ FOLIC ACID TABLET (FP) PO SCH (09:45)
[2021-05-14] MEDS: TRIAMCINOLONE ACET 0.1% OINT 15 GM TUBE TP SCH ×2 (09:46→21:47)
[2021-05-14] MEDS: VENLAFAXINE HCL 150 MG E.R. CAPSULE PO SCH (09:46)
[2021-05-14] MEDS: MINERAL OIL/PETROLAT/WATER TOPICAL CREAM 113 GM JAR TP SCH (09:46)
[2021-05-14] MEDS: SELENIUM SULFIDE 2.5% LOTION 4 OZ. TP SCH (09:47)
[2021-05-14] MEDS: amLODIPine BESYLATE 10 MG TABLET (FP) PO SCH (09:47)
[2021-05-14] MEDS: THIAMINE HCL 100 MG TABLET (FP) PO SCH (21:47)
[2021-05-14] MEDS: QUEtiapine FUMARATE 100 MG TABLET (FP) PO SCH (21:47)
[2021-05-15] MEDS ORDERED: PT OWN MED DRAWER 7, Y5N ONE ×2 (09:01→19:26)
[2021-05-15] MEDS: amLODIPine BESYLATE 10 MG TABLET (FP) PO SCH (09:37)
[2021-05-15] MEDS: TRIAMCINOLONE ACET 0.1% OINT 15 GM TUBE TP SCH ×2 (09:37→21:19)
[2021-05-15] MEDS: NICOTINE 7 MG/24 HOURS TOPICAL PATCH TD SCH (09:37)
[2021-05-15] MEDS: MINERAL OIL/PETROLAT/WATER TOPICAL CREAM 113 GM JAR TP SCH (09:37)
[2021-05-15] MEDS: VENLAFAXINE HCL 150 MG E.R. CAPSULE PO SCH (09:37)
[2021-05-15] MEDS: PRENATAL VITAMINS W/ FOLIC ACID TABLET (FP) PO SCH (09:37)
[2021-05-15] MEDS: SELENIUM SULFIDE 2.5% LOTION 4 OZ. TP SCH (09:38)
[2021-05-15] MEDS: ALBUTEROL SO4 HFA INHALER IH PRN (20:03)
[2021-05-15] MEDS: THIAMINE HCL 100 MG TABLET (FP) PO SCH (21:18)
[2021-05-15] MEDS: QUEtiapine FUMARATE 100 MG TABLET (FP) PO SCH (21:18)
[2021-05-15] MEDS: hydrOXYzine PAMOATE 25 MG CAPSULE (FP) PO PRN (21:19)
[2021-05-16] MEDS ORDERED: PT OWN MED DRAWER 7, Y5N ONE (08:48)
[2021-05-16] MEDS: NICOTINE 7 MG/24 HOURS TOPICAL PATCH TD SCH (09:48)
[2021-05-16] MEDS: VENLAFAXINE HCL 150 MG E.R. CAPSULE PO SCH (09:48)
[2021-05-16] MEDS: amLODIPine BESYLATE 10 MG TABLET (FP) PO SCH (09:48)
[2021-05-16] MEDS: hydrOXYzine PAMOATE 25 MG CAPSULE (FP) PO PRN ×2 (09:48→21:20)
[2021-05-16] MEDS: PRENATAL VITAMINS W/ FOLIC ACID TABLET (FP) PO SCH (09:48)
[2021-05-16] MEDS: SELENIUM SULFIDE 2.5% LOTION 4 OZ. TP SCH (09:49)
[2021-05-16] MEDS: TRIAMCINOLONE ACET 0.1% OINT 15 GM TUBE TP SCH ×2 (09:49→21:19)
[2021-05-16] MEDS: MINERAL OIL/PETROLAT/WATER TOPICAL CREAM 113 GM JAR TP SCH (09:49)
[2021-05-16] MEDS: THIAMINE HCL 100 MG TABLET (FP) PO SCH (21:19)
[2021-05-16] MEDS: QUEtiapine FUMARATE 100 MG TABLET (FP) PO SCH (21:19)
[2021-05-17] MEDS: NICOTINE 7 MG/24 HOURS TOPICAL PATCH TD SCH (09:45)
[2021-05-17] MEDS: amLODIPine BESYLATE 10 MG TABLET (FP) PO SCH (09:45)
[2021-05-17] MEDS: SELENIUM SULFIDE 2.5% LOTION 4 OZ. TP SCH (09:45)
[2021-05-17] MEDS: MINERAL OIL/PETROLAT/WATER TOPICAL CREAM 113 GM JAR TP SCH (09:46)
[2021-05-17] MEDS: PRENATAL VITAMINS W/ FOLIC ACID TABLET (FP) PO SCH (09:46)
[2021-05-17] MEDS: TRIAMCINOLONE ACET 0.1% OINT 15 GM TUBE TP SCH ×2 (09:46→21:55)
[2021-05-17] MEDS: VENLAFAXINE HCL 150 MG E.R. CAPSULE PO SCH (09:46)
[2021-05-17] MEDS: TOLNAFTATE 1% CREAM 15 GM TUBE TP SCH ×2 (16:07→21:55)
[2021-05-17] MEDS: THIAMINE HCL 100 MG TABLET (FP) PO SCH (21:54)
[2021-05-17] MEDS: QUEtiapine FUMARATE 100 MG TABLET (FP) PO SCH (21:54)
[2021-05-17] MEDS: hydrOXYzine PAMOATE 25 MG CAPSULE (FP) PO PRN (21:55)
[2021-05-18] MEDS: NICOTINE 7 MG/24 HOURS TOPICAL PATCH TD SCH (10:00)
[2021-05-18] MEDS: VENLAFAXINE HCL 150 MG E.R. CAPSULE PO SCH (10:00)
[2021-05-18] MEDS: PRENATAL VITAMINS W/ FOLIC ACID TABLET (FP) PO SCH (10:00)
[2021-05-18] MEDS: TOLNAFTATE 1% CREAM 15 GM TUBE TP SCH ×2 (10:00→21:33)
[2021-05-18] MEDS: amLODIPine BESYLATE 10 MG TABLET (FP) PO SCH (10:00)
[2021-05-18] MEDS: MINERAL OIL/PETROLAT/WATER TOPICAL CREAM 113 GM JAR TP SCH (10:01)
[2021-05-18] MEDS: TRIAMCINOLONE ACET 0.1% OINT 15 GM TUBE TP SCH ×2 (10:01→21:33)
[2021-05-18] MEDS: THIAMINE HCL 100 MG TABLET (FP) PO SCH (21:32)
[2021-05-18] MEDS: QUEtiapine FUMARATE 100 MG TABLET (FP) PO SCH (21:32)
[2021-05-18] MEDS: hydrOXYzine PAMOATE 25 MG CAPSULE (FP) PO PRN (21:33)
[2021-05-19] MEDS ORDERED: PT OWN MED DRAWER 7, Y5N ONE (07:41)
[2021-05-19] MEDS: amLODIPine BESYLATE 10 MG TABLET (FP) PO SCH (09:46)
[2021-05-19] MEDS: PRENATAL VITAMINS W/ FOLIC ACID TABLET (FP) PO SCH (09:46)
[2021-05-19] MEDS: VENLAFAXINE HCL 150 MG E.R. CAPSULE PO SCH (09:47)
[2021-05-19] MEDS: TRIAMCINOLONE ACET 0.1% OINT 15 GM TUBE TP SCH ×2 (09:47→21:29)
[2021-05-19] MEDS: TOLNAFTATE 1% CREAM 15 GM TUBE TP SCH ×2 (09:48→21:29)
[2021-05-19] MEDS: MINERAL OIL/PETROLAT/WATER TOPICAL CREAM 113 GM JAR TP SCH (09:48)
[2021-05-19] MEDS: NICOTINE 7 MG/24 HOURS TOPICAL PATCH TD SCH (09:48)
[2021-05-19] MEDS: THIAMINE HCL 100 MG TABLET (FP) PO SCH (21:28)
[2021-05-19] MEDS: QUEtiapine FUMARATE 100 MG TABLET (FP) PO SCH (21:28)
[2021-05-19] MEDS: hydrOXYzine PAMOATE 25 MG CAPSULE (FP) PO PRN (21:29)
[2021-05-20] MEDS: PRENATAL VITAMINS W/ FOLIC ACID TABLET (FP) PO SCH (10:06)
[2021-05-20] MEDS: NICOTINE 7 MG/24 HOURS TOPICAL PATCH TD SCH (10:07)
[2021-05-20] MEDS: TOLNAFTATE 1% CREAM 15 GM TUBE TP SCH ×2 (10:07→21:38)
[2021-05-20] MEDS: VENLAFAXINE HCL 150 MG E.R. CAPSULE PO SCH (10:07)
[2021-05-20] MEDS: amLODIPine BESYLATE 10 MG TABLET (FP) PO SCH (10:07)
[2021-05-20] MEDS: TRIAMCINOLONE ACET 0.1% OINT 15 GM TUBE TP SCH ×2 (10:08→21:37)
[2021-05-20] MEDS: MINERAL OIL/PETROLAT/WATER TOPICAL CREAM 113 GM JAR TP SCH (10:08)
[2021-05-20] MEDS: QUEtiapine FUMARATE 100 MG TABLET (FP) PO SCH (21:35)
[2021-05-20] MEDS ORDERED: PT OWN MED DRAWER 7, Y5N ONE (21:36)
[2021-05-20] MEDS: hydrOXYzine PAMOATE 25 MG CAPSULE (FP) PO PRN (21:36)
[2021-05-20] MEDS: THIAMINE HCL 100 MG TABLET (FP) PO SCH (21:36)
[2021-05-21] MEDS: PRENATAL VITAMINS W/ FOLIC ACID TABLET (FP) PO SCH (09:53)
[2021-05-21] MEDS: TRIAMCINOLONE ACET 0.1% OINT 15 GM TUBE TP SCH ×2 (09:54→21:26)
[2021-05-21] MEDS: amLODIPine BESYLATE 10 MG TABLET (FP) PO SCH (09:54)
[2021-05-21] MEDS: MINERAL OIL/PETROLAT/WATER TOPICAL CREAM 113 GM JAR TP SCH (09:56)
[2021-05-21] MEDS: VENLAFAXINE HCL 150 MG E.R. CAPSULE PO SCH (09:56)
[2021-05-21] MEDS: TOLNAFTATE 1% CREAM 15 GM TUBE TP SCH ×2 (09:57→21:26)
[2021-05-21] MEDS: NICOTINE 7 MG/24 HOURS TOPICAL PATCH TD SCH (09:57)
[2021-05-21] MEDS ORDERED: PT OWN MED DRAWER 7, Y5N ONE (20:51)
[2021-05-21] MEDS: hydrOXYzine PAMOATE 25 MG CAPSULE (FP) PO PRN (21:25)
[2021-05-21] MEDS: QUEtiapine FUMARATE 100 MG TABLET (FP) PO SCH (21:25)
[2021-05-21] MEDS: THIAMINE HCL 100 MG TABLET (FP) PO SCH (21:25)
[2021-05-22] MEDS: VENLAFAXINE HCL 150 MG E.R. CAPSULE PO SCH (10:14)
[2021-05-22] MEDS: amLODIPine BESYLATE 10 MG TABLET (FP) PO SCH (10:14)
[2021-05-22] MEDS: PRENATAL VITAMINS W/ FOLIC ACID TABLET (FP) PO SCH (10:14)
[2021-05-22] MEDS: TRIAMCINOLONE ACET 0.1% OINT 15 GM TUBE TP SCH ×2 (10:15→21:58)
[2021-05-22] MEDS: NICOTINE 7 MG/24 HOURS TOPICAL PATCH TD SCH (10:15)
[2021-05-22] MEDS: MINERAL OIL/PETROLAT/WATER TOPICAL CREAM 113 GM JAR TP SCH (10:15)
[2021-05-22] MEDS: TOLNAFTATE 1% CREAM 15 GM TUBE TP SCH ×2 (10:16→21:58)
[2021-05-22] MEDS: THIAMINE HCL 100 MG TABLET (FP) PO SCH (21:58)
[2021-05-22] MEDS: QUEtiapine FUMARATE 100 MG TABLET (FP) PO SCH (21:58)
[2021-05-22] MEDS: hydrOXYzine PAMOATE 25 MG CAPSULE (FP) PO PRN (21:58)
[2021-05-23 07:28] VITALS: BP 137/87; PULSE 80; TEMP 97.9
[2021-05-23] MEDS: PRENATAL VITAMINS W/ FOLIC ACID TABLET (FP) PO SCH (09:01)
[2021-05-23] MEDS: VENLAFAXINE HCL 150 MG E.R. CAPSULE PO SCH (09:01)
[2021-05-23] MEDS: TRIAMCINOLONE ACET 0.1% OINT 15 GM TUBE TP SCH (09:01)
[2021-05-23] MEDS: amLODIPine BESYLATE 10 MG TABLET (FP) PO SCH (09:01)
[2021-05-23] MEDS: NICOTINE 7 MG/24 HOURS TOPICAL PATCH TD SCH (09:02)
[2021-05-23] MEDS: TOLNAFTATE 1% CREAM 15 GM TUBE TP SCH (09:02)
[2021-05-23] MEDS: MINERAL OIL/PETROLAT/WATER TOPICAL CREAM 113 GM JAR TP SCH (09:02)
== END 2021-05-23 09:05 | disposition home or self-care (01) | DRG 895 ==
LOC: YASAS 18:13 → Y5N 23:13
PROVIDERS: ADMIT Allergy & Immunology; ATTEND Allergy & Immunology
PROC: HZ42ZZZ Group Counseling for Substance Abuse Treatment, Cognitive-Behavioral (ICD-10-PCS; principal; 2021-05-09)
DX: F10.20 Alcohol dependence, uncomplicated (principal); F14.20 Cocaine dependence, uncomplicated; F33.1 Major depressive disorder, recurrent, moderate; F19.282 Other psychoactive substance dependence with psychoactive substance-induced sleep disorder; F17.210 Nicotine dependence, cigarettes, uncomplicated; F39 Unspecified mood [affective] disorder; I10 Essential (primary) hypertension; J45.909 Unspecified asthma, uncomplicated; B35.3 Tinea pedis; L85.3 Xerosis cutis; Z88.0 Allergy status to penicillin; Z56.0 Unemployment, unspecified; Z59.0 Homelessness
CPT/HCPCS: 36415; 80053; 81003; 85027; 86780

== ENCOUNTER 2023-11-25 13:17 | Inpatient (IN) | payer OTHER ==
[2023-11-25 14:08] VITALS: BMI 29.2
[2023-11-25] MEDS ORDERED: guaiFENesin 600 MG TABLET.ER (FP) PO PRN (17:25)
[2023-11-25] MEDS ORDERED: BISMUTH SUBSALICYLATE 524 MG/30 ML PO PRN (17:25)
[2023-11-25] MEDS ORDERED: NALOXONE HCL (KLOXXADO) 8 MG SPRAY NS PRN (17:25)
[2023-11-25] MEDS ORDERED: IBUPROFEN 400 MG TABLET (FP) PO PRN (17:25)
[2023-11-25] MEDS ORDERED: IBUPROFEN 600 MG TABLET (FP) PO PRN (17:25)
[2023-11-25] MEDS ORDERED: ONDANSETRON *ODT* 4 MG TABLET SL PRN (17:25)
[2023-11-25] MEDS ORDERED: ACETAMINOPHEN 325 MG TABLET (FP) PO PRN (17:25)
[2023-11-25] MEDS ORDERED: LOPERAMIDE HCL 2 MG CAPSULE PO PRN (17:25)
[2023-11-25] MEDS ORDERED: DICYCLOMINE HCL 10 MG CAPSULE PO PRN (17:25)
[2023-11-25] MEDS ORDERED: MAGNESIUM HYDROX 2400MG/30ML ORAL SUSPENSION 30 ML CUP PO PRN (17:25)
[2023-11-25] MEDS ORDERED: NALOXONE HCL 0.4 MG/ML VIAL IM PRN (17:25)
[2023-11-25] MEDS ORDERED: BENZOCAINE/MENTHOL (CHLORASEPTIC ) LOZENGE MM PRN (17:25)
[2023-11-25] MEDS ORDERED: MAG HYDROX/AL HYDROX/SIMETH 30 ML UNIT-DOSE CUP PO PRN (17:25)
[2023-11-25] MEDS ORDERED: POLYETHYLENE GLYCOL (HEALTHYLAX) 3350 17 GM PACKET PO PRN (17:25)
[2023-11-25] MEDS ORDERED: BENZONATATE 200 MG CAPSULE PO PRN (17:25)
[2023-11-25] MEDS ORDERED: hydrOXYzine PAMOATE 25 MG CAPSULE (FP) PO PRN (17:25)
[2023-11-25] MEDS: MELATONIN 5 MG TABLETS PO SCH (22:47)
[2023-11-25] MEDS: THIAMINE HCL 100 MG TABLET (FP) PO SCH (22:47)
[2023-11-25] MEDS: DIVALPROEX SODIUM 500 MG TABLET E.C. PO SCH (22:47)
[2023-11-26] MEDS: PRENATAL VITAMINS W/ FOLIC ACID TABLET (FP) PO SCH (10:17)
[2023-11-26] MEDS: LOSARTAN POTASSIUM 50 MG TABLET PO SCH (10:19)
[2023-11-26] MEDS: VENLAFAXINE HCL 75 MG E.R. CAPSULES PO SCH (10:20)
[2023-11-26] MEDS: CITALOPRAM HYDROBROMIDE 20 MG TABLET PO SCH (10:20)
[2023-11-26] MEDS: amLODIPine BESYLATE 10 MG TABLET (FP) PO SCH (10:20)
[2023-11-26] MEDS ORDERED: chlordiazePOXIDE HCL 25 MG CAPSULE PO PRN (10:58)
[2023-11-26] MEDS ORDERED: ALBUTEROL SO4 0.083% IH SOL 2.5 MG/3 ML VIAL.NEB. NEB PRN ×2 (11:03→11:05)
[2023-11-26] MEDS: chlordiazePOXIDE HCL 25 MG CAPSULE PO SCH (11:11)
[2023-11-26 11:29] LABS: HEMOGLOBIN 12.1 GM/dL (11.7-16.9); MCH 31.1 pg (25.7-33.7); MCHC 33.6 g/dl (32.0-35.9); MEAN CELL VOLUME 92.7 fl (80-96); MEAN PLT VOLUME 7.6 fl (7.5-11.1); PLATELET COUNT 276 10^3/uL (134-434); RBC 3.88 M/mm3 (4.00-5.60); RDW 15.6 % (11.9-15.9); WHITE BLOOD COUNT 7.3 K/mm3 (4.0-10.0)
[2023-11-26 12:01] LABS: CHLORIDE 112 mmol/L (98-107); SODIUM 142 mmol/L (136-145)
[2023-11-26 12:04] LABS: ALBUMIN 3.1 g/dl (3.4-5.0); ANION GAP 6 mmol/L (4-13); BLOOD UREA NITROGEN 12.6 mg/dL (7-18); CO2 25 mmol/L (21-32); GLUCOSE,RANDOM 105 mg/dL (74-106)
[2023-11-26 12:05] LABS: CALCIUM 8.1 mg/dL (8.5-10.1)
[2023-11-26 12:07] LABS: SGOT/AST 48 U/L (15-37); SGPT/ALT 24 U/L (13-61)
[2023-11-26 12:09] LABS: BILIRUBIN,TOTAL 0.6 mg/dL (0.2-1); TOT PROT 5.9 g/dl (6.4-8.2)
[2023-11-26 12:10] LABS: ALK PHOS 91 U/L (45-117)
[2023-11-26] MEDS: ALBUTEROL SO4 HFA INHALER IH PRN (17:07)
[2023-11-26] MEDS: METHOCARBAMOL 500 MG TABLET PO PRN (22:29)
[2023-11-27] MEDS: chlordiazePOXIDE HCL 25 MG CAPSULE PO SCH (06:00)
[2023-11-28] MEDS: chlordiazePOXIDE HCL 10 MG CAPSULE PO SCH (05:54)
[2023-11-29] MEDS: chlordiazePOXIDE HCL 10 MG CAPSULE PO SCH (05:28)
[2023-11-29] MEDS: traZODone HCL 50 MG TABLET (FP) PO SCH (22:51)
[2023-11-30] MEDS: chlordiazePOXIDE HCL 10 MG CAPSULE PO ONE (05:56)
[2023-11-30 06:00] VITALS: TEMP 97.7
[2023-11-30 09:47] VITALS: BP 135/74; PULSE 62; RESP 18
[2023-11-30] MEDS ORDERED: CITALOPRAM HYDROBROMIDE 10 MG TABLET PO SCH (10:00)
[2023-11-30] MEDS: CITALOPRAM HYDROBROMIDE 10 MG TABLET PO SCH (10:15)
== END 2023-11-30 11:07 | disposition other institution (70) | DRG 897 ==
LOC: YASAS 13:17 → Y6N 17:37
PROVIDERS: ADMIT Allergy & Immunology; ATTEND Surgery
PROC: HZ2ZZZZ Detoxification Services for Substance Abuse Treatment (ICD-10-PCS; principal; 2023-11-25)
DX: F10.230 Alcohol dependence with withdrawal, uncomplicated (principal); F14.20 Cocaine dependence, uncomplicated; F33.1 Major depressive disorder, recurrent, moderate; F19.282 Other psychoactive substance dependence with psychoactive substance-induced sleep disorder; F17.210 Nicotine dependence, cigarettes, uncomplicated; F19.24 Other psychoactive substance dependence with psychoactive substance-induced mood disorder; I10 Essential (primary) hypertension; J45.20 Mild intermittent asthma, uncomplicated; R56.9 Unspecified convulsions; Z88.0 Allergy status to penicillin
CPT/HCPCS: 36415; 80053; 80164; 80305; 80307; 85027; 86780; 87635; 87811; 93005; 93010

== ENCOUNTER 2024-03-11 18:29 | Inpatient (IN) | payer OTHER ==
[2024-03-11 18:52] VITALS: BMI 25.5
[2024-03-11] MEDS ORDERED: BENZOCAINE/MENTHOL (CHLORASEPTIC ) LOZENGE MM PRN (19:26)
[2024-03-11] MEDS ORDERED: MAGNESIUM HYDROX 2400MG/30ML ORAL SUSPENSION 30 ML CUP PO PRN (19:26)
[2024-03-11] MEDS ORDERED: ACETAMINOPHEN 325 MG TABLET (FP) PO PRN (19:26)
[2024-03-11] MEDS ORDERED: LOPERAMIDE HCL 2 MG CAPSULE PO PRN (19:26)
[2024-03-11] MEDS ORDERED: MAG HYDROX/AL HYDROX/SIMETH 30 ML UNIT-DOSE CUP PO PRN (19:26)
[2024-03-11] MEDS ORDERED: NALOXONE HCL (KLOXXADO) 8 MG SPRAY NS PRN (19:26)
[2024-03-11] MEDS ORDERED: ONDANSETRON *ODT* 4 MG TABLET SL PRN (19:26)
[2024-03-11] MEDS ORDERED: POLYETHYLENE GLYCOL (HEALTHYLAX) 3350 17 GM PACKET PO PRN (19:26)
[2024-03-11] MEDS ORDERED: NALOXONE HCL 0.4 MG/ML VIAL IM PRN (19:26)
[2024-03-11] MEDS ORDERED: DICYCLOMINE HCL 10 MG CAPSULE PO PRN (19:26)
[2024-03-11] MEDS ORDERED: guaiFENesin 600 MG TABLET.ER (FP) PO PRN (19:26)
[2024-03-11] MEDS ORDERED: BENZONATATE 200 MG CAPSULE PO PRN (19:26)
[2024-03-11] MEDS ORDERED: IBUPROFEN 400 MG TABLET (FP) PO PRN (19:26)
[2024-03-11] MEDS ORDERED: METHOCARBAMOL 500 MG TABLET PO PRN (19:26)
[2024-03-11] MEDS ORDERED: BISMUTH SUBSALICYLATE 524 MG/30 ML PO PRN (19:26)
[2024-03-11] MEDS: ALBUTEROL SO4 HFA INHALER IH PRN (19:58)
[2024-03-11] MEDS: amLODIPine BESYLATE 10 MG TABLET (FP) PO SCH (19:58)
[2024-03-11] MEDS ORDERED: ALBUTEROL SO4 HFA INHALER IH ONE (20:00)
[2024-03-11] MEDS ORDERED: amLODIPine BESYLATE 5 MG TABLET (FP) ONE (20:00)
[2024-03-11] MEDS: hydrOXYzine PAMOATE 25 MG CAPSULE (FP) PO PRN (20:16)
[2024-03-11] MEDS ORDERED: hydrOXYzine PAMOATE 25 MG CAPSULE (FP) PO ONE (20:19)
[2024-03-11] MEDS: MELATONIN 5 MG TABLETS PO SCH (21:32)
[2024-03-11] MEDS: THIAMINE 100 MG TABLET PO SCH (21:32)
[2024-03-12] MEDS: TRIAMCINOLONE ACET 0.5% OINT 15 GM TUBE TP SCH (10:11)
[2024-03-12] MEDS: SELENIUM SULFIDE 2.25% 180 ML SHAMPOO TP SCH (10:11)
[2024-03-12] MEDS: PRENATAL VITAMINS W/ FOLIC ACID TABLET (FP) PO SCH (10:12)
[2024-03-12] MEDS: CITALOPRAM HYDROBROMIDE 10 MG TABLET PO SCH (10:50)
[2024-03-12 11:24] LABS: HEMATOCRIT 39.4 % (35.4-49); HEMOGLOBIN 13.7 GM/dL (11.7-16.9); MCH 31.1 pg (25.7-33.7); MCHC 34.7 g/dl (32.0-35.9); MEAN CELL VOLUME 89.7 fl (80-96); MEAN PLT VOLUME 7.6 fl (7.5-11.1); PLATELET COUNT 311 10^3/uL (134-434); RBC 4.39 M/mm3 (4.00-5.60); WHITE BLOOD COUNT 6.7 K/mm3 (4.0-10.0)
[2024-03-12 11:26] LABS: CHLORIDE 109 mmol/L (98-107); SODIUM 141 mmol/L (136-145)
[2024-03-12 11:30] LABS: CALCIUM 8.5 mg/dL (8.5-10.1)
[2024-03-12 11:32] LABS: ALBUMIN 3.1 g/dl (3.4-5.0); ANION GAP 4 mmol/L (4-13); BLOOD UREA NITROGEN 7.1 mg/dL (7-18); CO2 27 mmol/L (21-32); GLUCOSE,RANDOM 99 mg/dL (74-106)
[2024-03-12 11:34] LABS: CREATININE 0.8 mg/dL (0.55-1.3); SGOT/AST 42 U/L (15-37); SGPT/ALT 15 U/L (13-61)
[2024-03-12 11:35] LABS: BILIRUBIN,TOTAL 0.9 mg/dL (0.2-1)
[2024-03-12 11:37] LABS: ALK PHOS 111 U/L (45-117); TOT PROT 6.2 g/dl (6.4-8.2)
[2024-03-12] MEDS: LOSARTAN POTASSIUM 50 MG TABLET PO SCH (19:14)
[2024-03-12] MEDS: traZODone HCL 100 MG TABLET (FP) PO SCH (21:40)
[2024-03-13] MEDS: diazePAM 5 MG TABLET PO SCH (11:57)
[2024-03-13] MEDS: IBUPROFEN 600 MG TABLET (FP) PO PRN (17:20)
[2024-03-15] MEDS: diazePAM 5 MG TABLET PO SCH (05:38)
[2024-03-15] MEDS: diazePAM 5 MG TABLET PO PRN (20:10)
[2024-03-16] MEDS: diazePAM 5 MG TABLET PO SCH (05:45)
[2024-03-17] MEDS: diazePAM 5 MG TABLET PO ONE (05:55)
[2024-03-17 09:10] VITALS: RESP 18
[2024-03-17 13:00] VITALS: BP 170/92; PULSE 86; TEMP 97.9
== END 2024-03-17 12:34 | disposition other institution (70) | DRG 897 ==
LOC: YASAS 18:29 → Y3N 20:17
PROVIDERS: ADMIT Allergy & Immunology; ATTEND Surgery
PROC: HZ2ZZZZ Detoxification Services for Substance Abuse Treatment (ICD-10-PCS; principal; 2024-03-11)
DX: F10.230 Alcohol dependence with withdrawal, uncomplicated (principal); F14.20 Cocaine dependence, uncomplicated; F33.1 Major depressive disorder, recurrent, moderate; F17.210 Nicotine dependence, cigarettes, uncomplicated; F19.24 Other psychoactive substance dependence with psychoactive substance-induced mood disorder; I10 Essential (primary) hypertension; J45.20 Mild intermittent asthma, uncomplicated; L30.9 Dermatitis, unspecified; Z88.0 Allergy status to penicillin
CPT/HCPCS: 36415; 80053; 80305; 80307; 85027; 86780; 87811; 93005; 93010

== ENCOUNTER 2024-03-17 12:38 | Inpatient (IN) | payer OTHER ==
[2024-03-17] MEDS ORDERED: MAGNESIUM HYDROX 2400MG/30ML ORAL SUSPENSION 30 ML CUP PO PRN (13:04)
[2024-03-17] MEDS ORDERED: NALOXONE (NARCAN) HCL 4 MG/0.1 ML SPRAY NS PRN (13:04)
[2024-03-17] MEDS ORDERED: BENZOCAINE/MENTHOL (CHLORASEPTIC ) LOZENGE MM PRN (13:04)
[2024-03-17] MEDS ORDERED: METHOCARBAMOL 500 MG TABLET PO PRN (13:04)
[2024-03-17] MEDS ORDERED: guaiFENesin 600 MG TABLET.ER (FP) PO PRN (13:04)
[2024-03-17] MEDS ORDERED: LOPERAMIDE HCL 2 MG CAPSULE PO PRN (13:04)
[2024-03-17] MEDS ORDERED: NALOXONE HCL 0.4 MG/ML VIAL IVPUSH PRN (13:04)
[2024-03-17] MEDS ORDERED: ACETAMINOPHEN 325 MG TABLET (FP) PO PRN (13:04)
[2024-03-17] MEDS ORDERED: hydrOXYzine PAMOATE 25 MG CAPSULE (FP) PO PRN (13:04)
[2024-03-17] MEDS ORDERED: POLYETHYLENE GLYCOL (HEALTHYLAX) 3350 17 GM PACKET PO PRN (13:04)
[2024-03-17] MEDS ORDERED: BENZONATATE 200 MG CAPSULE PO PRN (13:04)
[2024-03-17] MEDS: ALBUTEROL SO4 HFA INHALER IH PRN (21:26)
[2024-03-17] MEDS: traZODone HCL 100 MG TABLET (FP) PO SCH (21:26)
[2024-03-17] MEDS: MELATONIN 5 MG TABLETS PO SCH (21:26)
[2024-03-17] MEDS: THIAMINE 100 MG TABLET PO SCH (21:26)
[2024-03-18] MEDS: amLODIPine BESYLATE 10 MG TABLET (FP) PO SCH (10:23)
[2024-03-18] MEDS: CITALOPRAM HYDROBROMIDE 10 MG TABLET PO SCH (10:23)
[2024-03-18] MEDS: LOSARTAN POTASSIUM 50 MG TABLET PO SCH (10:23)
[2024-03-18] MEDS: PRENATAL VITAMINS W/ FOLIC ACID TABLET (FP) PO SCH (10:24)
[2024-03-18] MEDS: SELENIUM SULFIDE 2.25% 180 ML SHAMPOO TP SCH (10:24)
[2024-03-18] MEDS: TRIAMCINOLONE ACET 0.5% OINT 15 GM TUBE TP PRN (21:12)
[2024-04-01] MEDS: IBUPROFEN 600 MG TABLET (FP) PO PRN (21:15)
[2024-04-02] MEDS: MAG HYDROX/AL HYDROX/SIMETH 30 ML UNIT-DOSE CUP PO PRN (10:14)
[2024-04-04] MEDS: SELENIUM SULFIDE 2.25% 180 ML SHAMPOO TP SCH (13:21)
[2024-04-07] MEDS: BACLOFEN 10 MG TABLET (FP) PO SCH (21:11)
[2024-04-11] MEDS: IBUPROFEN 400 MG TABLET (FP) PO PRN (21:11)
[2024-04-13 07:01] VITALS: RESP 16; TEMP 97.7
[2024-04-13 09:16] VITALS: BP 129/77; PULSE 75
== END 2024-04-13 09:07 | disposition home or self-care (01) | DRG 895 ==
LOC: YASAS 12:38 → Y3W 12:39
PROVIDERS: ADMIT Allergy & Immunology; ATTEND Psychiatry & Neurology Pain Medicine
PROC: HZ42ZZZ Group Counseling for Substance Abuse Treatment, Cognitive-Behavioral (ICD-10-PCS; principal; 2024-03-17)
DX: F10.20 Alcohol dependence, uncomplicated (principal); F14.20 Cocaine dependence, uncomplicated; F33.1 Major depressive disorder, recurrent, moderate; F17.210 Nicotine dependence, cigarettes, uncomplicated; F12.20 Cannabis dependence, uncomplicated; F19.24 Other psychoactive substance dependence with psychoactive substance-induced mood disorder; I10 Essential (primary) hypertension; J45.20 Mild intermittent asthma, uncomplicated; R56.9 Unspecified convulsions; Z88.0 Allergy status to penicillin
CPT/HCPCS: 36415; 86803; J0475

== ENCOUNTER 2024-05-19 14:05 | Inpatient (IN) | payer OTHER ==
[2024-05-19 14:51] VITALS: BMI 23.5
[2024-05-19] MEDS ORDERED: POLYETHYLENE GLYCOL (HEALTHYLAX) 3350 17 GM PACKET PO PRN (16:24)
[2024-05-19] MEDS ORDERED: NICOTINE POLACRILEX 2 MG LOZENGE BC PRN (16:24)
[2024-05-19] MEDS ORDERED: MAG HYDROX/AL HYDROX/SIMETH 30 ML UNIT-DOSE CUP PO PRN (16:24)
[2024-05-19] MEDS ORDERED: LOPERAMIDE HCL 2 MG CAPSULE PO PRN (16:24)
[2024-05-19] MEDS ORDERED: IBUPROFEN 400 MG TABLET (FP) PO PRN (16:24)
[2024-05-19] MEDS ORDERED: BENZOCAINE/MENTHOL (CHLORASEPTIC ) LOZENGE MM PRN (16:24)
[2024-05-19] MEDS ORDERED: NICOTINE POLACRILEX 2 MG GUM BUC PRN (16:24)
[2024-05-19] MEDS ORDERED: ACETAMINOPHEN 325 MG TABLET (FP) PO PRN (16:24)
[2024-05-19] MEDS ORDERED: guaiFENesin 600 MG TABLET.ER (FP) PO PRN (16:24)
[2024-05-19] MEDS ORDERED: BENZONATATE 200 MG CAPSULE PO PRN (16:24)
[2024-05-19] MEDS ORDERED: MAGNESIUM HYDROX 2400MG/30ML ORAL SUSPENSION 30 ML CUP PO PRN (16:24)
[2024-05-19] MEDS: hydrOXYzine PAMOATE 25 MG CAPSULE (FP) PO PRN (19:18)
[2024-05-19] MEDS: amLODIPine BESYLATE 10 MG TABLET (FP) PO SCH (19:18)
[2024-05-19] MEDS: ALBUTEROL SO4 HFA INHALER IH PRN (19:19)
[2024-05-19] MEDS: amLODIPine BESYLATE 5 MG TABLET (FP) PO SCH (19:23)
[2024-05-19] MEDS: MELATONIN 5 MG TABLETS PO SCH (21:40)
[2024-05-19] MEDS: LOSARTAN POTASSIUM 50 MG TABLET PO SCH ×2 (21:40→21:46)
[2024-05-19] MEDS: THIAMINE 100 MG TABLET PO SCH (21:40)
[2024-05-20] MEDS: PRENATAL VITAMINS W/ FOLIC ACID TABLET (FP) PO SCH (09:47)
[2024-05-20 11:21] LABS: HEMATOCRIT 39.6 % (35.4-49); HEMOGLOBIN 13.2 GM/dL (11.7-16.9); MCH 31.8 pg (25.7-33.7); MCHC 33.3 g/dl (32.0-35.9); MEAN CELL VOLUME 95.3 fl (80-96); MEAN PLT VOLUME 8.1 fl (7.5-11.1); PLATELET COUNT 236 10^3/uL (134-434); RBC 4.15 M/mm3 (4.00-5.60); WHITE BLOOD COUNT 6.5 K/mm3 (4.0-10.0)
[2024-05-20 11:23] LABS: POTASSIUM 3.9 mmol/L (3.5-5.1)
[2024-05-20 11:34] LABS: CALCIUM 8.4 mg/dL (8.5-10.1)
[2024-05-20 11:35] LABS: BLOOD UREA NITROGEN 10.7 mg/dL (7-18)
[2024-05-20 11:38] LABS: CREATININE 0.9 mg/dL (0.55-1.3)
[2024-05-20 11:39] LABS: BILIRUBIN,TOTAL 0.4 mg/dL (0.2-1); TOT PROT 5.8 g/dl (6.4-8.2)
[2024-05-20] MEDS: traZODone HCL 50 MG TABLET (FP) PO SCH (21:16)
[2024-05-21] MEDS: CITALOPRAM HYDROBROMIDE 10 MG TABLET PO SCH (10:19)
[2024-05-22] MEDS: HYDROCORTISONE 1% TOPICAL OINT 30 GM TUBE TP PRN (21:18)
[2024-05-23 14:02] LABS: URINE APPEARANCE CLEAR; URINE BILIRUBIN NEGATIVE (NEGATIVE); URINE COLOR YELLOW; URINE GLUCOSE (UA) NEGATIVE (NEGATIVE); URINE KETONE NEGATIVE (NEGATIVE); URINE LEUK ESTERASE NEGATIVE (NEGATIVE); URINE NITRITE NEGATIVE (NEGATIVE); URINE PROTEIN NEGATIVE (NEGATIVE); URINE UROBILINOGEN 0.2 mg/dL (0.2-1.0)
[2024-05-27] MEDS: IBUPROFEN 600 MG TABLET (FP) PO PRN (17:54)
[2024-06-08] MEDS: SELENIUM SULFIDE 2.25% 180 ML SHAMPOO TP SCH (15:58)
[2024-06-08] MEDS: BACLOFEN 10 MG TABLET (FP) PO SCH (21:11)
[2024-06-15 09:06] VITALS: RESP 16
[2024-06-16 06:36] VITALS: TEMP 97.8
[2024-06-16 09:16] VITALS: BP 156/84; PULSE 81
== END 2024-06-16 09:42 | disposition home or self-care (01) | DRG 895 ==
LOC: YASAS 14:05 → Y3NR 18:23 → Y3E 05-20 11:45
PROVIDERS: ADMIT Allergy & Immunology; ATTEND Psychiatry & Neurology Pain Medicine
PROC: HZ42ZZZ Group Counseling for Substance Abuse Treatment, Cognitive-Behavioral (ICD-10-PCS; principal; 2024-05-19)
DX: F10.20 Alcohol dependence, uncomplicated (principal); F14.20 Cocaine dependence, uncomplicated; F12.20 Cannabis dependence, uncomplicated; F19.24 Other psychoactive substance dependence with psychoactive substance-induced mood disorder; F32.A Depression, unspecified; I10 Essential (primary) hypertension; J45.909 Unspecified asthma, uncomplicated; L30.9 Dermatitis, unspecified; L21.0 Seborrhea capitis; M62.838 Other muscle spasm; Z88.0 Allergy status to penicillin
CPT/HCPCS: 36415; 80053; 80305; 80307; 81003; 85027; 86780; 87811; J0475

== ENCOUNTER 2024-09-07 09:28 | Inpatient (IN) | payer OTHER ==
[2024-09-07] MEDS: PERMETHRIN 5% TOPICAL CREAM 60 GM TUBE TP ONE (10:26)
[2024-09-07 12:17] VITALS: BMI 22.4
[2024-09-07] MEDS ORDERED: LOPERAMIDE HCL 2 MG CAPSULE PO PRN (12:50)
[2024-09-07] MEDS ORDERED: NICOTINE POLACRILEX 4 MG GUM BUC PRN (12:50)
[2024-09-07] MEDS ORDERED: guaiFENesin 600 MG TABLET.ER (FP) PO PRN (12:50)
[2024-09-07] MEDS ORDERED: ACETAMINOPHEN 325 MG TABLET (FP) PO PRN (12:50)
[2024-09-07] MEDS ORDERED: BENZOCAINE/MENTHOL (CHLORASEPTIC ) LOZENGE MM PRN (12:50)
[2024-09-07] MEDS ORDERED: IBUPROFEN 400 MG TABLET (FP) PO PRN (12:50)
[2024-09-07] MEDS ORDERED: POLYETHYLENE GLYCOL (HEALTHYLAX) 3350 17 GM PACKET PO PRN (12:50)
[2024-09-07] MEDS ORDERED: BENZONATATE 200 MG CAPSULE PO PRN (12:50)
[2024-09-07] MEDS ORDERED: MAGNESIUM HYDROX 2400MG/30ML ORAL SUSPENSION 30 ML CUP PO PRN (12:50)
[2024-09-07] MEDS ORDERED: NALOXONE (NARCAN) HCL 4 MG/0.1 ML SPRAY NS PRN (12:50)
[2024-09-07] MEDS: NICOTINE 14 MG/24 HOURS TOPICAL PATCH TD SCH (13:19)
[2024-09-07] MEDS ORDERED: amLODIPine BESYLATE 5 MG TABLET (FP) ONE (13:20)
[2024-09-07] MEDS: amLODIPine BESYLATE 10 MG TABLET (FP) PO SCH (13:22)
[2024-09-07] MEDS ORDERED: HYDROCORTISONE 1% TOPICAL CREAM 30 GM TUBE TP PRN (13:28)
[2024-09-07] MEDS ORDERED: METOPROLOL TARTRATE 25 MG TABLET (FP) ONE (17:16)
[2024-09-07] MEDS: METOPROLOL TARTRATE 25 MG TABLET (FP) PO ONE (17:20)
[2024-09-07] MEDS ORDERED: MELATONIN 5 MG TABLETS ONE (22:00)
[2024-09-07] MEDS: MELATONIN 5 MG TABLETS PO SCH (22:31)
[2024-09-07] MEDS: THIAMINE 100 MG TABLET PO SCH (22:31)
[2024-09-08] MEDS ORDERED: ALBUTEROL SO4 HFA INHALER IH ONE (07:58)
[2024-09-08] MEDS: PERMETHRIN 5% TOPICAL CREAM 60 GM TUBE TP ONE (08:22)
[2024-09-08] MEDS ORDERED: amLODIPine BESYLATE 5 MG TABLET (FP) ONE (08:47)
[2024-09-08] MEDS: amLODIPine BESYLATE 10 MG TABLET (FP) PO SCH (08:50)
[2024-09-08] MEDS ORDERED: PRENATAL VITAMINS W/ FOLIC ACID TABLET (FP) PO ONE (09:04)
[2024-09-08] MEDS: PRENATAL VITAMINS W/ FOLIC ACID TABLET (FP) PO SCH (09:06)
[2024-09-08 11:14] LABS: HEMATOCRIT 41.5 % (35.4-49); HEMOGLOBIN 13.3 GM/dL (11.7-16.9); MCH 30.5 pg (25.7-33.7); MCHC 32.1 g/dl (32.0-35.9); MEAN CELL VOLUME 95.1 fl (80-96); MEAN PLT VOLUME 7.8 fl (7.5-11.1); PLATELET COUNT 283 10^3/uL (134-434); RBC 4.36 M/mm3 (4.00-5.60); WHITE BLOOD COUNT 6.2 K/mm3 (4.0-10.0)
[2024-09-08 11:17] LABS: POTASSIUM 4.2 mmol/L (3.5-5.1)
[2024-09-08 11:23] LABS: CALCIUM 8.9 mg/dL (8.5-10.1)
[2024-09-08 11:24] LABS: ALBUMIN 3.5 g/dl (3.4-5.0); BLOOD UREA NITROGEN 20.2 mg/dL (7-18)
[2024-09-08 11:28] LABS: BILIRUBIN,TOTAL 0.3 mg/dL (0.2-1); TOT PROT 6.5 g/dl (6.4-8.2)
[2024-09-08 11:42] LABS: SYPHILIS W/ RPR CONF NON-REACTIVE (NONREACTIVE)
[2024-09-08] MEDS: ALBUTEROL SO4 HFA INHALER IH PRN (18:03)
[2024-09-08] MEDS: traZODone HCL 100 MG TABLET (FP) PO SCH (21:52)
[2024-09-09] MEDS: hydrOXYzine PAMOATE 25 MG CAPSULE (FP) PO PRN (21:33)
[2024-09-10] MEDS: cloNIDine HCL 0.1 MG TABLET PO ONE (07:27)
[2024-09-10] MEDS: SELENIUM SULFIDE 2.5% LOTION 4 OZ. TP SCH (13:53)
[2024-09-10] MEDS: HYDROCORTISONE 1% TOPICAL OINT 30 GM TUBE TP PRN (13:54)
[2024-09-13 12:55] LABS: PH,URINE 8.5 (5.0-8.0); URINE APPEARANCE Clear; URINE BILIRUBIN Negative (NEGATIVE); URINE COLOR Yellow; URINE GLUCOSE (UA) Negative (NEGATIVE); URINE KETONE Negative (NEGATIVE); URINE LEUK ESTERASE Negative (NEGATIVE); URINE NITRITE Negative (NEGATIVE); URINE PROTEIN Negative (NEGATIVE); URINE UROBILINOGEN 0.2 mg/dL (0.2-1.0)
[2024-09-17] MEDS: IBUPROFEN 600 MG TABLET (FP) PO PRN (21:08)
[2024-09-23] MEDS: MAG HYDROX/AL HYDROX/SIMETH 30 ML UNIT-DOSE CUP PO PRN (12:05)
[2024-09-30] MEDS: BACLOFEN 10 MG TABLET (FP) PO SCH (21:09)
[2024-10-03 06:50] VITALS: RESP 16; TEMP 97.8
[2024-10-03] MEDS: NALOXONE (NYS OPIOID OVERDOSE PROGRAM) 4 MG/0.1 ML SPRAY NS SCH (09:19)
[2024-10-03 11:23] VITALS: BP 142/91; PULSE 84
== END 2024-10-03 09:27 | disposition home or self-care (01) | DRG 895 ==
LOC: YASAS 09:28 → Y3NR 15:10 → Y5N 09-09 11:45
PROVIDERS: ADMIT Psychiatry & Neurology Pain Medicine; ATTEND Family Medicine Addiction Medicine
PROC: HZ42ZZZ Group Counseling for Substance Abuse Treatment, Cognitive-Behavioral (ICD-10-PCS; principal; 2024-09-07)
DX: F10.20 Alcohol dependence, uncomplicated (principal); F14.20 Cocaine dependence, uncomplicated; F17.210 Nicotine dependence, cigarettes, uncomplicated; F19.24 Other psychoactive substance dependence with psychoactive substance-induced mood disorder; G47.00 Insomnia, unspecified; I10 Essential (primary) hypertension; J45.20 Mild intermittent asthma, uncomplicated; L30.9 Dermatitis, unspecified; B85.0 Pediculosis due to Pediculus humanus capitis; Z88.0 Allergy status to penicillin
CPT/HCPCS: 36415; 80053; 80305; 80307; 81003; 85027; 86780; 86803; 87811; J0475